=== PATIENT | female | born 1960 | race Caucasian/White ===

== ENCOUNTER 2020-09-01 13:08 | Outpatient (REF) | payer OTHER, SELFPAY ==
--- NOTE | ~2020-09-01 | XR_ITS ---
EXAMINATION: XR CHEST CLINICAL INFORMATION: Localized swelling, mass or lump. COMPARISON: None TECHNIQUE: 2 views of the chest were obtained. FINDINGS: Lungs are well-expanded and clear of acute process. The heart size and pulmonary vascularity is normal. No gross bony abnormality seen. XR/XR chest 2V IMPRESSION: Unremarkable chest exam.
== END 2020-09-01 13:09 | disposition home or self-care (01) ==
LOC: HO.HMGCX 13:08
PROVIDERS: PCP Internal Medicine; Visit Provider Hospitalist
DX: R22.2 Localized swelling, mass and lump, trunk (principal)
CPT/HCPCS: 71046

== ENCOUNTER 2020-09-22 13:02 | Outpatient (REF) | payer OTHER, SELFPAY ==
--- NOTE | ~2020-09-22 | US_ITS ---
EXAMINATION: US SOFT TISSUE NECK CLINICAL INFORMATION: Localized enlarged lymph nodes. COMPARISON: 08/17/2018 soft tissue neck ultrasound. TECHNIQUE: Ultrasound of the neck soft tissues is performed with high- frequency elise-scale imaging and color Doppler. FINDINGS: THYROID BED: Prior thyroidectomy. No residual thyroid tissue demonstrated in the thyroid bed. No cystic or solid nodules demonstrated in the thyroid bed. RIGHT NECK SOFT TISSUES: Scattered architecturally normal nodes are present. The nodes show normal fatty hilus, normal cortical thickness, and no cystic change or calcification. No abnormal color flow. The largest nodes are as follows: Level 3: 0.3 cm. Short axis Normal arturo architecture. LEFT NECK SOFT TISSUES: Scattered architecturally normal nodes are present. The nodes show normal fatty hilus, normal cortical thickness, and no cystic change or calcification. No abnormal color flow. The largest nodes are as follows: Level 5B: 0.4 cm. Short axis. Normal arturo architecture. Level 5B: 0.4 cm. Short axis, left clavicular Normal arturo architecture. US/US soft tiss head and/or neck IMPRESSION: 1. Left cervical lymph nodes are mildly enlarged relative to the right. No significantly enlarged cervical lymph nodes.
== END 2020-09-22 13:03 | disposition home or self-care (01) ==
LOC: HO.HMGCX 13:02
PROVIDERS: PCP Internal Medicine; Visit Provider Internal Medicine
DX: R59.0 Localized enlarged lymph nodes (principal)
CPT/HCPCS: 76536

== ENCOUNTER 2020-10-21 09:34 | Outpatient (REF) | payer OTHER, SELFPAY ==
[2020-10-21 11:26] LABS: Hematocrit 42.1 % (37-47); Hemoglobin 13.5 g/dl (12.0-16.0); Mean Corpuscular HGB Conc 32.1 g/dl (31.0-35.0); Mean Corpuscular Hemoglobin 28.7 pg (27.0-33.0); Mean Corpuscular Volume 89.6 fL (80-98); Mean Platelet Volume 10.5 fL (9.4-12.3); Platelet Count 141 X10*3/uL (160-400); Red Cell Distribution Width 12.2 % (11.0-16.0); White Blood Count 4.4 X10*3/uL (4.8-10.8)
[2020-10-21 11:28] LABS: Glucose Urine UA NEG (NEG); Leukocyte Esterase Urine NEG (NEG); Nitrite Urine NEG (NEG); Specific Gravity - Urine 1.025 (1.005-1.025); Urine Blood NEG (NEG); Urine Ketones NEG (NEG); Urine Protein NEG (NEG-TRACE)
[2020-10-21 11:30] LABS: Appearance Urine CLEAR; Color Urine YELLOW
[2020-10-21 11:37] LABS: Alanine Aminotransferase 15 U/L (0-31); Albumin Level 4.4 g/dL (3.5-5.0); Alkaline Phosphatase 84 U/L (39-117); Anion Gap 15 (12-20); Aspartate Amino Transferase 20 U/L (5-31); Bilirubin Total 0.6 mg/dL (0.0-1.0); Blood Urea Nitrogen 16 mg/dL (9-16); C Reactive Protein 0.05 mg/dL (< or = 0.50); Calcium 9.5 mg/dL (8.4-10.2); Carbon Dioxide 26 mmol/L (22-29); Chloride 108 mmol/L (96-108); Cholesterol 174 mg/dL; Estimated Glomerular Filt Rate > 60; Glucose Fasting 87 mg/dL (60-99); HDL Cholesterol 65 mg/dL; Iron 54 mcg/dL (30-160); LDL Cholesterol Calculated 98 mg/dl; Percent Iron Saturation 15 % (15-50); Potassium 4.6 mmol/L (3.3-5.1); Sodium 144 mmol/L (135-145); Total Iron Binding Capacity 362 mcg/dL (228-428); Total Protein 6.7 g/dL (6.5-8.0); Triglycerides 55 mg/dL; Unsaturated Iron Binding 308 ug/dL
[2020-10-21 11:48] LABS: Calcium Oxalate Crystals Urine 2+ /LPF; RBC Urine 0 /HPF (0); Squamous Epithelial Cell Urine TRACE /LPF; WBC Urine 0 /HPF (0-4)
[2020-10-21 12:02] LABS: TSH reflex Free T4 1.13 uIU/mL (0.32-4.0); Vitamin D 25-OH Total 22.8 ng/mL (>30)
[2020-10-21 12:20] LABS: Erythrocyte Sedimentation Rate 4 MM/HR (0-20)
== END 2020-10-21 09:35 | disposition home or self-care (01) ==
LOC: HO.HMGCLDS 09:34
PROVIDERS: PCP Internal Medicine; Visit Provider Internal Medicine
DX: Z00.00 Encounter for general adult medical examination without abnormal findings (principal); R59.0 Localized enlarged lymph nodes
CPT/HCPCS: 36415; 80053; 80061; 81001; 82306; 83540; 84443; 85027; 85652; 86140

== ENCOUNTER 2020-11-29 14:32 | Outpatient (REF) | payer OTHER, SELFPAY ==
--- NOTE | ~2020-11-29 | MM_ITS ---
EXAMINATION: BONE DENSITOMETRY CLINICAL INDICATION: Palpitations. COMPARISON: None (current study represents initial baseline exam). TECHNIQUE: Using a [employer] DXA System (software version: 13.1) manufactured by [employer], dual-energy x-ray absorptiometry was performed of the lumbar spine and left hip. The images are of good technical quality. Summary results are attached. FINDINGS: AP SPINE L1-L4: BMD 1.083 g/cm2, Z-score 0.4, T-score -0.8, normal. LEFT FEMUR, NECK: BMD 0.780 g/cm2, Z-score -0.6, T-score -1.9, osteopenia. LEFT FEMUR, TOTAL: BMD 0.866 g/cm2, Z-score -0.2, T-score -1.1, osteopenia. IDENTIFIED RISK FACTORS: Height loss, menopause, left oophorectomy. HISTORY OF FRACTURE: None listed. MEDICATIONS: Calcium supplements or multivitamin, vitamin D. MM/XR DEXA axial skeleton IMPRESSION: 1. DIAGNOSIS: Osteopenia based on the lowest T-score value of -1.9 in the femoral neck applying World Health Organization criteria. 2. 10-YEAR FRACTURE RISK PREDICTION, FRAX: Major osteoporotic fracture (clinical spine, forearm, hip or shoulder) 8.5%. Hip fracture 1.1%. 3. Treatment Recommendations: NOF guidelines recommend consideration for treatment in postmenopausal women and men age 50 and older presenting with the following: -A hip or vertebral (clinical or morphometric) fracture. -T-score less than or equal to -2.5 at the femoral neck or spine after appropriate evaluation to exclude secondary causes. -Low bone mass at the hip or spine and a 10-year fracture probability by FRAX of greater than or equal to 3% for hip fracture or greater than or equal to 20% for major osteoporotic fracture based on the [place] adapted WHO algorithm. 4. Other Recommendations: All treatment decisions require clinical judgment and consideration of individual patient factors, including patient preferences, comorbidities, previous drug use, risk factors not captured in the FRAX model (e.g. frailty, falls, vitamin D deficiency, increased bone turnover, interval significant decline in bone density) and possible under or overestimation of fracture risk by FRAX. Additional medical evaluation for secondary cause of low bone mineral density may be appropriate. FUTURE SCAN RECOMMENDATION: People with diagnosed cases of osteoporosis or at high risk for fracture should have regular bone mineral density tests. For patients eligible for Medicare, routine testing is allowed once every 2 years. The testing frequency can be increased to one year for patients who have rapidly progressing disease, those who are receiving or discontinuing medical therapy to restore bone mass, or have additional risk factors.
== END 2020-11-29 14:33 | disposition home or self-care (01) ==
LOC: HO.MAMMO 14:32
PROVIDERS: Visit Provider Internal Medicine
DX: Z13.820 Encounter for screening for osteoporosis (principal); R00.2 Palpitations; Z78.0 Asymptomatic menopausal state; Z90.721 Acquired absence of ovaries, unilateral
CPT/HCPCS: 77080

== ENCOUNTER → 2020-12-29 13:24 | Outpatient (REF) | payer OTHER, SELFPAY ==
--- NOTE | 2020-12-29 13:30 | ECG_ITS ---
Hook-up date: 2020-12-29 13:34:00 Duration: 47:59:00 Test Indications: PALPITATIONS Medications: [id number] QRS complexes 6 Ventricular ectopics which represent <1 % of total QRS comp. 2 Supraventricular ectopics which represent <1 % of total QRS comp. * Paced QRS complexs which represent % of total QRS comp. VENTRICULAR ECTOPY 6 Isolated 0 Bigeminal Cycles 0 Couplets 0 Runs 0 Beats in Runs * Beats LONGEST at * BPM at :: -- * Beats FASTEST at * BPM at :: -- SUPRAVENTRICULAR ECTOPY 2 Isolated 0 Couplets 0 Runs 0 Beats in Runs * Beats LONGEST at * BPM at :: -- * Beats FASTEST at * BPM at :: -- HEART RATES 41 MIN at 04:10:39 2020-12-30 66 AVG 145 MAX at 17:27:39 2020-12-30 LONGEST RR 1.6560 secs at 05:30:51 2020-12-30 S-T LEVELS Channel 1 - 128 mm at 13:34:00 2020-12-29 - 128 mm at 13:34:00 2020-12-29 Channel 2 - 128 mm at 13:34:00 2020-12-29 - 128 mm at 13:34:00 2020-12-29 Channel 3 - 128 mm at 03:25:31 -- - 128 mm at 03:25:31 Basic rhythm Normal sinus rhythm No long pauses. Frequent Sinus bradycardia , 35 % of time HR < 60 bpm No dangerous dysrhythm periods Patient reported symptoms correlated with NSR Referred By: Radha Walker Overread By: MARIANA AKERS MD
== END ==
LOC: HO.CARD 13:24
PROVIDERS: PCP Internal Medicine; Visit Provider Internal Medicine
DX: R00.2 Palpitations (principal)
CPT/HCPCS: 93226

== ENCOUNTER → 2021-01-15 09:33 | Outpatient (BNVA) | payer OTHER, SELFPAY | PROVIDERS: PCP Internal Medicine; Referring Provider Internal Medicine; Visit Provider Nurse Practitioner Family ==

== ENCOUNTER 2021-10-27 10:23 | Outpatient (REF) | payer OTHER, SELFPAY ==
[2021-10-27 11:10] LABS: MANUAL DIFF FLAG NO
[2021-10-27 11:16] LABS: Basophils Absolute Auto 0.1 X10*3/uL (0.0-0.2); Eosinophils Absolute Auto 0.2 X10*3/uL (0.0-0.4); Eosinophils Percent Auto 4.7 % (0-4); Hematocrit 42.2 % (37.0-47.0); Hemoglobin 13.9 g/dl (12.0-16.0); Imm Gran Abs Auto 0.01 X10*3/uL (0.00-0.03); Imm Gran Pct Auto 0.2 % (0.0-0.4); Lymphocytes Absolute Auto 1.4 X10*3/uL (1.2-4.9); Lymphocytes Percent Auto 27.3 % (20-40); Mean Corpuscular HGB Conc 32.9 g/dl (31.0-35.0); Mean Corpuscular Hemoglobin 28.5 pg (27.0-33.0); Mean Corpuscular Volume 86.7 fL (80.0-98.0); Mean Platelet Volume 10.1 fL (9.4-12.3); Monocytes Absolute Auto 0.3 X10*3/uL (0.1-1.2); Monocytes Percent Auto 6.7 % (2-11); Neutrophils Absolute Auto 3.1 x10*3/uL (2.0-8.3); Neutrophils Percent Auto 60.1 % (45-73); Platelet Count 166 X10*3/uL (160-400); Red Blood Count 4.87 X10*6/uL (4.20-5.50); Red Cell Distribution Width 11.9 % (11.0-16.0); White Blood Count 5.1 X10*3/uL (4.8-10.8)
[2021-10-27 11:40] LABS: Alanine Aminotransferase 17 U/L (0-31); Albumin Level 4.7 g/dL (3.5-5.0); Alkaline Phosphatase 82 U/L (39-117); Anion Gap 12 (12-20); Aspartate Amino Transferase 24 U/L (5-31); Bilirubin Total 0.9 mg/dL (0.0-1.0); Blood Urea Nitrogen 16 mg/dL (9-16); Calcium 9.7 mg/dL (8.4-10.2); Carbon Dioxide 30 mmol/L (22-29); Chloride 104 mmol/L (96-108); Cholesterol 186 mg/dL; Estimated Glomerular Filt Rate > 60; Glucose Fasting 94 mg/dL (60-99); HDL Cholesterol 65 mg/dL; LDL Cholesterol Calculated 108 mg/dl; Potassium 4.2 mmol/L (3.3-5.1); Sodium 142 mmol/L (135-145); Total Protein 6.9 g/dL (6.5-8.0); Triglycerides 67 mg/dL
[2021-10-27 11:46] LABS: TSH reflex Free T4 1.63 uIU/mL (0.32-4.0)
== END 2021-10-27 10:24 | disposition home or self-care (01) ==
LOC: HO.HMGCLDS 10:23
PROVIDERS: PCP Internal Medicine; Visit Provider Internal Medicine
DX: Z00.00 Encounter for general adult medical examination without abnormal findings (principal)
CPT/HCPCS: 36415; 80053; 80061; 84443; 85025

== ENCOUNTER 2021-11-23 | Outpatient (REF) | payer OTHER, SELFPAY | END 2021-11-23 00:01 | disposition home or self-care (01) | LOC: HO.LNP | PROVIDERS: Visit Provider Internal Medicine | DX: Z13.89 Encounter for screening for other disorder (principal) ==

== ENCOUNTER 2021-11-27 11:12 | Outpatient (REF) | payer OTHER, SELFPAY ==
[2021-11-28 14:20] LABS: BV Int Neg Control Negative (Negative); BV Int Pos Control Positive (Positive)
== END 2021-11-27 11:13 | disposition home or self-care (01) ==
LOC: HO.HMGCLDS 11:12
PROVIDERS: PCP Internal Medicine; Visit Provider Internal Medicine
DX: N76.0 Acute vaginitis (principal)
CPT/HCPCS: 87480; 87510; 87660

== ENCOUNTER 2022-10-31 13:31 | Outpatient (REF) | payer OTHER, SELFPAY ==
[2022-10-31 16:22] LABS: MANUAL DIFF FLAG NO
[2022-10-31 16:39] LABS: Appearance Urine Clear; Color Urine Yellow; Glucose Urine UA Negative (Negative); Leukocyte Esterase Urine Trace (Negative); Nitrite Urine Negative (Negative); Specific Gravity - Urine <= 1.005 (1.005-1.025); UMIC TRIGGER UA YES; Urine Blood Negative (Negative); Urine Ketones 40 mg/dL (Negative); Urine Protein Negative (Neg-Trace)
[2022-10-31 16:45] LABS: Bacteria Urine None Seen (None Seen); Hyaline Casts Urine 0-2 /LPF (0-2); RBC Urine 0-2 /HPF (0-2); Squamous Epithelial Cell Urine 0-2 /HPF (0-2); WBC Urine 0-5 /HPF (0-5)
[2022-10-31 16:51] LABS: Basophils Absolute Auto 0.1 X10*3/uL (0.0-0.2); Basophils Percent Auto 0.6 % (0-2); Eosinophils Absolute Auto 0.1 X10*3/uL (0.0-0.4); Eosinophils Percent Auto 1.5 % (0-4); Hematocrit 42.9 % (37.0-47.0); Imm Gran Abs Auto 0.01 X10*3/uL (0.00-0.03); Imm Gran Pct Auto 0.1 % (0.0-0.4); Lymphocytes Absolute Auto 1.7 X10*3/uL (1.2-4.9); Mean Corpuscular HGB Conc 32.6 g/dl (31.0-35.0); Mean Corpuscular Hemoglobin 28.4 pg (27.0-33.0); Mean Platelet Volume 11.1 fL (9.4-12.3); Monocytes Absolute Auto 0.5 X10*3/uL (0.1-1.2); Monocytes Percent Auto 5.7 % (2-11); Neutrophils Absolute Auto 6.4 x10*3/uL (2.0-8.3); Neutrophils Percent Auto 73.1 % (45-73); Platelet Count 159 X10*3/uL (160-400); Red Blood Count 4.93 X10*6/uL (4.20-5.50); Red Cell Distribution Width 12.1 % (11.0-16.0); White Blood Count 8.7 X10*3/uL (4.8-10.8)
[2022-10-31 17:02] LABS: Alanine Aminotransferase 13 U/L (0-31); Albumin Level 4.6 g/dL (3.5-5.0); Alkaline Phosphatase 78 U/L (39-117); Anion Gap 13 (12-20); Aspartate Amino Transferase 18 U/L (5-31); Bilirubin Total 1.5 mg/dL (0.0-1.0); Blood Urea Nitrogen 18 mg/dL (9-16); Calcium 9.8 mg/dL (8.4-10.2); Carbon Dioxide 28 mmol/L (22-29); Chloride 104 mmol/L (96-108); Cholesterol 178 mg/dL; Estimated Glomerular Filt Rate > 60; Glucose Fasting 86 mg/dL (60-99); HDL Cholesterol 66 mg/dL; LDL Cholesterol Calculated 100 mg/dl; Potassium 4.4 mmol/L (3.3-5.1); Sodium 141 mmol/L (135-145); Total Protein 7.2 g/dL (6.5-8.0); Triglycerides 60 mg/dL
[2022-10-31 17:16] LABS: TSH reflex Free T4 1.24 uIU/mL (0.32-4.0)
== END 2022-10-31 13:32 | disposition home or self-care (01) ==
LOC: HO.HMGCLDS 13:31
PROVIDERS: PCP Internal Medicine; Visit Provider Internal Medicine
DX: Z00.00 Encounter for general adult medical examination without abnormal findings (principal); R00.2 Palpitations
CPT/HCPCS: 36415; 80053; 80061; 81001; 84443; 85025

== ENCOUNTER 2022-11-06 07:55 | Outpatient (AMB) | payer OTHER, SELFPAY ==
[2022-11-06 07:58] VITALS: BP 126/82; PULSE 60; O2SAT 97; BMI 20.8
--- NOTE | 2022-11-06 07:58 | MHC.PC.OV ---
Vital Signs 11/06/22 07:58 Height 5 ft 10 in Weight 145 lb 4 oz BMI 20.8 BP 126/82 Blood Pressure Location Lt brachial Position Sitting Pulse 60 Pulse Source Pulse Oximeter Pulse Oximetry (%) 97 Oxygen Delivery Method Room Air Intake Visit Reasons: annual PE Intake Note: pt is here for PE Allergies No Known Allergies [No Known Allergies*] Allergy (Verified 11/06/22 08:01) Medication List - Last Reconciled 11/06/22 by Radha Walker MD famciclovir 250 mg PO BID multivitamin (Daily Multi-Vitamin tablet) 1 tab PO DAILY Tobacco use date assessed: 11/06/22 Dental Screening Dental Screen Date: 11/06/22 Did you have a dental visit in the last 12 months?: Yes Did you have a dental problem in the last 6 months where you did not have access to dental care?: No Was dental information given to patient?: Patient has dentist HPI annual PE HPI Details Patient presents for physical PFSH Medical History (Updated 11/06/22 @ 09:04 by Radha Walker MD) Annual physical exam Cervical adenopathy Hair loss IBS (irritable bowel syndrome) Pain Palpitations Valencia syndrome Uterine fibroid Surgical History H/O colonoscopy Family History Brother Colon polyp Social History Housing: House Alcohol intake: current Alcohol intake frequency: holidays/special occasions only Patient Tobacco Use Status: Never used Tobacco e-Cigarette/Vaping Use: Never Used service: No Current occupational status: employed Cognitive needs: No Hearing needs: No Vision needs: Yes Questionnaire Thrive Questionnaire Date Thrive assessed: 11/01/20 Review of Systems Const All systems reviewed & are unremarkable except as noted in HPI and below Reports no additional complaints Eyes Reports no additional complaints ENT Reports no additional complaints Card Reports no additional complaints Resp Reports no additional complaints GI Reports no additional complaints Reports no additional complaints Physical exam (Primary Care) Vital Signs: Last Vital Signs Pulse 60 11/06/22 07:58 BP 126/82 11/06/22 07:58 Pulse Ox 97 11/06/22 07:58 Oxygen Delivery Method Room Air 11/06/22 07:58 BMI result Body Mass Index 20.8 Tobacco/Smoking Status: Tobacco use Status Tobacco use date assessed 11/06/22 11/06/22 08:04 Patient Tobacco Use Status Never used Tobacco 11/06/22 08:04 e-Cigarette/Vaping Use Never Used 11/06/22 08:04 Thrive Assessment: Date of Thrive Assessment Date Thrive assessed 11/01/20 11/06/22 08:04 Const General: no acute distress HENMT Head: Yes normal to inspection Ears: hearing grossly normal bilaterally Face and sinus: Yes normal facial exam Throat: Yes posterior oropharynx normal Eyes General: appearance normal, both eyes and all related structures Neck Neck: Yes no lymphadenopathy and Yes supple Resp Effort & Inspection: normal respiratory effort Auscultation: clear to auscultation bilaterally Cardio Rhythm: regular rhythm Heart sounds: S1 normal heart sound present and S2 normal heart sound present GI Inspection: Yes normal to inspection Palpation (GI): Soft to palpation Percussion: Yes normal to percussion Auscultation: normal bowel sounds Assessment and Plan Assessment & Plan (1) Osteochondroma: Comment: L TMJ will f/u with oral surgeon 11/10 Code(s): D16.9 - Benign neoplasm of bone and articular cartilage, unspecified (2) Dysplastic nevi: Comment: Referred to dermatology 11/10 Code(s): D23.9 - Other benign neoplasm of skin, unspecified (3) Sleep apnea: Code(s): G47.30 - Sleep apnea, unspecified Plan: Schedule home sleep study to r/o sleep apnea (4) Annual physical exam: Code(s): Z00.00 - Encounter for general adult medical examination without abnormal findings Plan: Well-balanced diet and regular exercise discussed with the patient. Mammogram will be scheduled patient will referred to GI for colonoscopy. She (5) Normal pelvic exam: Comment: Negative Pap and pelvic exam 2019, never sexually active Code(s): Z01.419 - Encounter for gynecological examination (general) (routine) without abnormal findings Orders: Orders RT home sleep study Today G47.30 - Sleep apnea, unspecified MM screening mammo BI Today Z12.31 - Encounter for screening mammogram for malignant neoplasm of breast Comprehensive [place]. Panel Fast 365 Days E55.9 - Vitamin D deficiency, unspecified, Z00.00 - Encounter for general adult medical examination without abnormal findings Lipid Panel 365 Days E55.9 - Vitamin D deficiency, unspecified, Z00.00 - Encounter for general adult medical examination without abnormal findings TSH reflex Free T4 365 Days E55.9 - Vitamin D deficiency, unspecified, Z00.00 - Encounter for general adult medical examination without abnormal findings Vitamin D 25-OH Total 365 Days E55.9 - Vitamin D deficiency, unspecified, Z00.00 - Encounter for general adult medical examination without abnormal findings Complete Blood Count Auto Diff 365 Days E55.9 - Vitamin D deficiency, unspecified, Z00.00 - Encounter for general adult medical examination without abnormal findings Vitamin B12 and Folate 365 Days E55.9 - Vitamin D deficiency, unspecified, Z00.00 - Encounter for general adult medical examination without abnormal findings UA CC w/rflx Micro + Cult 365 Days E55.9 - Vitamin D deficiency, unspecified, Z00.00 - Encounter for general adult medical examination without abnormal findings Referrals Dermatology Referral D23.9 - Other benign neoplasm of skin, unspecified Gastroenterology Referral Z00.00 - Encounter for general adult medical examination without abnormal findings Medications: Refilled famciclovir 250 mg PO BID 180 tabs 3RF Coding Level of Care Code Est Pt Prev Care 40-64y(31792) Diagnoses Osteochondroma D16.9 Dysplastic nevi D23.9 Sleep apnea G47.30 Annual physical exam Z00.00 Normal pelvic exam Z01.419
== END 2022-11-06 08:54 | disposition home or self-care (01) ==
PROVIDERS: Visit Provider Internal Medicine
DX: Z00.00 Encounter for general adult medical examination without abnormal findings (principal); D16.9 Benign neoplasm of bone and articular cartilage, unspecified; D23.9 Other benign neoplasm of skin, unspecified; G47.30 Sleep apnea, unspecified; Z01.419 Encounter for gynecological examination (general) (routine) without abnormal findings
CPT/HCPCS: 99396

== ENCOUNTER → 2022-12-12 08:57 | Outpatient (REF) | payer OTHER, SELFPAY ==
--- NOTE | ~2022-12-12 | MM_ITS ---
EXAMINATION: MM SCREENING DIGITAL BREAST TOMOSYNTHESIS, BILATERAL CLINICAL INFORMATION: Screening. Asymptomatic. The patient has a history of prior left breast excision for benign disease. COMPARISON: Mammography: This study is compared with prior exams dating back to 2017. TECHNIQUE: Digital breast tomosynthesis is performed in both the craniocaudal and mediolateral oblique views along with computer-aided detection (CAD). Synthesized 2D images are generated from the tomosynthesis. FINDINGS: There are scattered areas of fibroglandular density (ACR BI-RADS breast composition Category b). There are no significant masses, abnormal calcifications, or other abnormalities. There are unchanged, benign calcifications in the superior aspect of the left breast. MM/MM tomosynthesis screening BI IMPRESSION: No mammographic evidence of malignancy. ASSESSMENT: BI-RADS BI-RADS 2 - Benign Findings RECOMMENDATION: Routine annual mammography screening. 1 year F/U This examination should not preclude the clinical evaluation of a suspicious palpable abnormality. This patient's information was entered into a reminder system with a target due date for their next mammogram.
== END ==
LOC: HO.SL 08:57
PROVIDERS: PCP Internal Medicine; Visit Provider Internal Medicine
DX: Z12.31 Encounter for screening mammogram for malignant neoplasm of breast (principal)
CPT/HCPCS: 77063; 77067; 95806

== ENCOUNTER → 2022-12-12 09:00 | Outpatient (BNV) | payer OTHER, SELFPAY | PROVIDERS: PCP Internal Medicine; Visit Provider Radiology Diagnostic Radiology | DX: Z12.31 Encounter for screening mammogram for malignant neoplasm of breast (principal) | CPT/HCPCS: 77063; 77067 ==

== ENCOUNTER → 2022-12-12 09:47 | Outpatient (BNV) | payer OTHER, SELFPAY | PROVIDERS: PCP Internal Medicine; Visit Provider Internal Medicine | DX: R06.83 Snoring (principal) | CPT/HCPCS: 95806 ==

== ENCOUNTER 2023-10-07 11:39 | Outpatient (AMB) | payer OTHER, SELFPAY ==
[2023-10-07 11:42] VITALS: BP 130/82; PULSE 66; O2SAT 98; BMI 20.5
--- NOTE | 2023-10-07 11:42 | AM.OFFWIN_ITS ---
Intake Vital Signs 10/07/23 11:42 Height 5 ft 10 in Weight 143 lb BMI 20.5 BP 130/82 Blood Pressure Location Lt brachial Position Sitting Pulse 66 Pulse Source Pulse Oximeter Pulse Oximetry (%) 98 Oxygen Delivery Method Room Air Intake Visit Reasons: EP-Blood in Urine Patient Tobacco Use Status: Never used Tobacco Allergies No Known Allergies [No Known Allergies*] Allergy (Verified 10/07/23 11:42) Medication List - Last Reconciled 10/07/23 by Donnie Larson MD famciclovir 250 mg PO BID multivitamin (Daily Multi-Vitamin tablet) 1 tab PO DAILY Do you need a note to return to daycare/school/sports/work: No HPI EP-Blood in Urine HPI Details Patient is a 63-year-old female came in today to be evaluated for blood in urine. Patient says that it started around weekend it has been almost 3 to 4 weeks There is no frequency of urination or dysuria Patient says that when it started she also have discomfort upper part of her abdomen and right flank Discomfort is no longer there. She is also having frequent bowel movements but no blood. She has appointment coming up for colonoscopy screening early October in 2-3 weeks She does have a family history of renal calculi in father I am ordering basic labs to monitor her kidney functions and hemoglobin She does have 3+ blood in her urine today There is no flank pain on examination or abdominal pain. Review system revealed no fever no chills no nausea no vomiting no headaches no dizziness no chest pain no shortness a breath Further management after the reports [facility] Medical History Pain Palpitations Annual physical exam Cervical adenopathy Uterine fibroid IBS (irritable bowel syndrome) Valencia syndrome Hair loss Surgical History H/O colonoscopy Family History Brother Colon polyp Social History Housing: House Alcohol intake: current Alcohol intake frequency: holidays/special occasions only Patient Tobacco Use Status: Never used Tobacco e-Cigarette/Vaping Use: Never Used service: No Current occupational status: employed Cognitive needs: No Hearing needs: No Vision needs: Yes Review of Systems Const Denies chills and Denies fever(s) ENT Denies epistaxis and Denies nasal discharge Card Denies chest pain Resp Denies chest congestion, Denies cough and Denies hemoptysis GI Denies nausea Skin/Breast Denies rash Neuro Reports no additional complaints Psych Reports no additional complaints Endo Reports no additional complaints Physical Exam Vital Signs: Last Vital Signs Pulse 66 10/07/23 11:42 BP 130/82 10/07/23 11:42 Pulse Ox 98 10/07/23 11:42 Oxygen Delivery Method Room Air 10/07/23 11:42 BMI result Body Mass Index 20.5 Const General: cooperative, comfortable and no acute distress Orientation/consciousness: patient oriented x3 HEENT Head: Yes normocephalic Eyes General: appearance normal, both eyes and all related structures Neck Other: Supple Neck: Yes supple Resp Effort & Inspection: normal respiratory effort, no cough and no stridor Cardio Rhythm: regular rhythm Heart sounds: S1 normal heart sound present and S2 normal heart sound present GI Other: Abdominal exam is benign General: Yes no CVA tenderness Back/Spine/Pelvis Back: no CVA tenderness Skin General skin exam: turgor normal Neuro Other: Motor sensory intact General: patient oriented x3, tone normal and moves all extremities Extrem Other: No lower extremity swelling. Right lower extremity: no edema Left lower extremity: no edema Psych Other: Normal effect, speech clear Results AMB Urinalysis, Automated UA Leukoctes 0 Catherine/uL Last Edit by Westley Serrano CMA on 10/07/23 11:59 UA Nitrite Negative Last Edit by Westley Serrano CMA on 10/07/23 11:59 UA Urobilinogen 0.2 mg/dL Last Edit by Westley Serrano CMA on 10/07/23 11 :59 UA Protein 0 mg/dL Last Edit by Westley Serrano CMA on 10/07/23 11:59 UA pH 6.0 Last Edit by Westley Serrano CMA on 10/07/23 11:59 UA Blood 200 Alejandro/uL Last Edit by Westley Serrano CMA on 10/07/23 11:59 UA Specific Pinch 1.010 Last Edit by Westley Serrano CMA on 10/07/23 11:59 UA Ketone Positive Last Edit by Westley Serrano CMA on 10/07/23 11:59 UA Bilirubin 0 mg/dL Last Edit by Westley Serrano CMA on 10/07/23 11:59 UA Glucose 0 mg/dL Last Edit by Westley Serrano CMA on 10/07/23 11:59 Assessment & Plan Assessment & Plan (1) Hematuria: Code(s): R31.9 - Hematuria, unspecified Qualifiers: Hematuria type: gross Qualified Code(s): R31.0 - Gross hematuria Plan Patient is a 63-year-old female came in today to be evaluated for blood in urine. Patient says that it started around weekend it has been almost 3 to 4 weeks There is no frequency of urination or dysuria Patient says that when it started she also have discomfort upper part of her abdomen and right flank Discomfort is no longer there. She is also having frequent bowel movements but no blood. She has appointment coming up for colonoscopy screening early October in 2-3 weeks She does have a family history of renal calculi in father I am ordering basic labs to monitor her kidney functions and hemoglobin She does have 3+ blood in her urine today There is no flank pain on examination or abdominal pain. Review system revealed no fever no chills no nausea no vomiting no headaches no dizziness no chest pain no shortness a breath Further management after the reports Orders: Orders AMB Urinalysis Automated Today Z13.9 - Encounter for screening, unspecified Urine Culture Today R31.9 - Hematuria, unspecified US renal BI Today R31.0 - Gross hematuria Complete Blood Count Auto Diff Today R31.9 - Hematuria, unspecified Comprehensive Met. Panel Today R31.9 - Hematuria, unspecified Coding Level of Care Code Est Pt Level 4 (76358) Diagnoses Gross hematuria R31.0 Hematuria type: gross
== END 2023-10-07 12:10 | disposition home or self-care (01) ==
PROVIDERS: PCP Internal Medicine; Visit Provider Internal Medicine
DX: R31.0 Gross hematuria (principal)
CPT/HCPCS: 81003; 99214

== ENCOUNTER 2023-10-07 11:58 | Outpatient (REF) | payer OTHER, SELFPAY ==
[2023-10-07 13:05] LABS: MANUAL DIFF FLAG NO
[2023-10-07 13:29] LABS: Basophils Percent Auto 0.7 % (0-2); Eosinophils Absolute Auto 0.3 X10*3/uL (0.0-0.4); Eosinophils Percent Auto 4.7 % (0-4); Hematocrit 40.8 % (37.0-47.0); Hemoglobin 13.5 g/dl (12.0-16.0); Imm Gran Abs Auto 0.02 X10*3/uL (0.00-0.03); Imm Gran Pct Auto 0.4 % (0.0-0.4); Lymphocytes Absolute Auto 1.4 X10*3/uL (1.2-4.9); Lymphocytes Percent Auto 25.3 % (20-40); Mean Corpuscular HGB Conc 33.1 g/dl (31.0-35.0); Mean Corpuscular Volume 87.6 fL (80.0-98.0); Mean Platelet Volume 10.5 fL (9.4-12.3); Monocytes Absolute Auto 0.4 X10*3/uL (0.1-1.2); Monocytes Percent Auto 7.5 % (2-11); Neutrophils Absolute Auto 3.5 x10*3/uL (2.0-8.3); Neutrophils Percent Auto 61.4 % (45-73); Platelet Count 146 X10*3/uL (160-400); Red Blood Count 4.66 X10*6/uL (4.20-5.50); Red Cell Distribution Width 12.1 % (11.0-16.0); White Blood Count 5.7 X10*3/uL (4.8-10.8)
[2023-10-07 13:48] LABS: Alanine Aminotransferase 13 U/L (0-31); Albumin Level 4.4 g/dL (3.5-5.0); Alkaline Phosphatase 76 U/L (39-117); Anion Gap 12 (12-20); Aspartate Amino Transferase 21 U/L (5-31); Bilirubin Total 1.1 mg/dL (0.0-1.0); Blood Urea Nitrogen 16 mg/dL (9-16); Calcium 9.3 mg/dL (8.4-10.2); Carbon Dioxide 28 mmol/L (22-29); Chloride 106 mmol/L (96-108); Estimated Glomerular Filt Rate > 60; Glucose Random 90 mg/dL (60-115); Potassium 4.2 mmol/L (3.3-5.1); Sodium 142 mmol/L (135-145); Total Protein 6.9 g/dL (6.5-8.0)
== END 2023-10-07 11:59 | disposition home or self-care (01) ==
LOC: HO.HMGCLDS 11:58
PROVIDERS: PCP Internal Medicine; Visit Provider Internal Medicine
DX: R31.9 Hematuria, unspecified (principal)
CPT/HCPCS: 36415; 80053; 85025

== ENCOUNTER 2023-10-08 14:39 | Outpatient (REF) | payer OTHER, SELFPAY ==
--- NOTE | ~2023-10-08 | US_ITS ---
EXAMINATION: US RETROPERITONEAL LIMITED (RENAL ONLY) CLINICAL INFORMATION: Gross hematuria. COMPARISON: None available. TECHNIQUE: Real-time imaging of the kidneys. FINDINGS: RIGHT KIDNEY: 9.3 x 3.5 x 5.3 cm (SAG x AP x TRV). The kidney is normal in size, contour, and echogenicity. Renal cortical thickness is normal. No calculi or focal parenchymal lesions. No hydronephrosis. LEFT KIDNEY: 10.3 x 5.3 x 5.6 cm (SAG x AP x TRV). The kidney is normal in size, contour, and echogenicity. Renal cortical thickness is normal. Multiple renal calculi with largest cluster measuring in conjunction 1.6 cm in the upper pole. There is a 2.3 cm calculus in the ureteropelvic junction, possibly explaining the hydronephrosis. Bilateral ureteric jets are present. US/US renal BI IMPRESSION: Moderate left-sided hydronephrosis with an obstructive 2.3 cm calculus in the ureteropelvic junction and multiple additional nonobstructive calculi including largest cluster measuring 1.6 cm in the upper pole.
== END 2023-10-08 14:40 | disposition home or self-care (01) ==
LOC: HO.HMGCX 14:39
PROVIDERS: PCP Internal Medicine; Visit Provider Internal Medicine
DX: R31.0 Gross hematuria (principal)
CPT/HCPCS: 76775

== ENCOUNTER 2023-11-04 10:40 | Outpatient (REF) | payer OTHER, SELFPAY ==
[2023-11-04 12:59] LABS: MANUAL DIFF FLAG NO
[2023-11-04 13:06] LABS: Basophils Absolute Auto 0.1 X10*3/uL (0.0-0.2); Basophils Percent Auto 1.1 % (0-2); Eosinophils Absolute Auto 0.2 X10*3/uL (0.0-0.4); Eosinophils Percent Auto 5.2 % (0-4); Hematocrit 40.8 % (37.0-47.0); Hemoglobin 13.5 g/dl (12.0-16.0); Lymphocytes Absolute Auto 1.6 X10*3/uL (1.2-4.9); Lymphocytes Percent Auto 36.2 % (20-40); Mean Corpuscular HGB Conc 33.1 g/dl (31.0-35.0); Mean Corpuscular Hemoglobin 28.8 pg (27.0-33.0); Mean Platelet Volume 10.8 fL (9.4-12.3); Monocytes Absolute Auto 0.4 X10*3/uL (0.1-1.2); Monocytes Percent Auto 7.9 % (2-11); Neutrophils Absolute Auto 2.2 x10*3/uL (2.0-8.3); Neutrophils Percent Auto 49.6 % (45-73); Platelet Count 151 X10*3/uL (160-400); Red Blood Count 4.69 X10*6/uL (4.20-5.50); Red Cell Distribution Width 12.4 % (11.0-16.0); White Blood Count 4.4 X10*3/uL (4.8-10.8)
[2023-11-04 13:15] LABS: Appearance Urine Clear; Color Urine Yellow; Glucose Urine UA Negative (Negative); Leukocyte Esterase Urine Small (1+) (Negative); Nitrite Urine Negative (Negative); PH 5.5 (5.0-9.0); UMIC TRIGGER UACC YES; Urine Blood Trace (Negative); Urine Ketones Negative (Negative); Urine Protein Negative (Neg-Trace)
[2023-11-04 13:29] LABS: Alanine Aminotransferase 11 U/L (0-31); Albumin Level 4.5 g/dL (3.5-5.0); Alkaline Phosphatase 76 U/L (39-117); Anion Gap 14 (12-20); Aspartate Amino Transferase 19 U/L (5-31); Blood Urea Nitrogen 16 mg/dL (9-16); Calcium 9.5 mg/dL (8.4-10.2); Carbon Dioxide 26 mmol/L (22-29); Chloride 105 mmol/L (96-108); Cholesterol 187 mg/dL (<200); Estimated Glomerular Filt Rate > 60; Glucose Fasting 86 mg/dL (60-99); HDL Cholesterol 62 mg/dL (>40); LDL Cholesterol Calculated 116 mg/dL (<100); Potassium 4.1 mmol/L (3.3-5.1); Sodium 141 mmol/L (135-145); Total Protein 6.9 g/dL (6.5-8.0); Triglycerides 48 mg/dL (<150)
[2023-11-04 13:31] LABS: Bacteria Urine None Seen (None Seen); Calcium Oxalate Crystals Urine Present; Hyaline Casts Urine 0-2 /LPF (0-2); Squamous Epithelial Cell Urine 0-2 /HPF (0-2); UACC Culture Trigger YES
[2023-11-04 13:47] LABS: Vitamin D 25-OH Total 34.3 ng/mL (>30)
[2023-11-04 13:54] LABS: Folate 11.4 ng/mL (> or = 4.0); Vitamin B12 511 pg/mL (200-900)
== END 2023-11-04 10:41 | disposition home or self-care (01) ==
LOC: HO.HMGCLDS 10:40
PROVIDERS: PCP Internal Medicine; Visit Provider Internal Medicine
DX: Z00.00 Encounter for general adult medical examination without abnormal findings (principal); E55.9 Vitamin D deficiency, unspecified; R82.90 Unspecified abnormal findings in urine
CPT/HCPCS: 36415; 80053; 80061; 81001; 82306; 82607; 82746; 84443; 85025; 87086

== ENCOUNTER 2023-11-11 08:27 | Outpatient (AMB) | payer OTHER, SELFPAY ==
[2023-11-11 08:31] VITALS: BP 138/70; PULSE 52; O2SAT 100; BMI 20.1
--- NOTE | 2023-11-11 08:31 | MHC.PC.OV ---
Vital Signs 11/11/23 08:31 Height 5 ft 10 in Weight 140 lb BMI 20.1 BP 138/70 Blood Pressure Location Lt brachial Position Sitting Pulse 52 Pulse Source Pulse Oximeter Pulse Oximetry (%) 100 Oxygen Delivery Method Room Air Intake Visit Reasons: PE Intake Note: Pt is here today for her PE: Last mammogram 12/12/22 Allergies No Known Allergies [No Known Allergies*] Allergy (Verified 11/11/23 08:32) Medication List - Last Reconciled 11/11/23 by Radha Walker MD famciclovir 250 mg PO BID multivitamin (Daily Multi-Vitamin tablet) 1 tab PO DAILY Tobacco use date assessed: 11/11/23 Dental Screening Dental Screen Date: 11/11/23 Did you have a dental visit in the last 12 months?: Yes Did you have a dental problem in the last 6 months where you did not have access to dental care?: No Was dental information given to patient?: Patient has dentist HPI PE HPI Details Patient presents for physical. A month ago patient developed episode of painless gross hematuria, was seen urgent care. renal ultrasound was consistent with 2.3 cm obstructive left kidney stone with moderate hydronephrosis and multiple nonobstructive nephrolithiasis. Patient denies flank pain nausea vomiting fever chills or abdominal pain. She has an appointment with urology next week. [facility] Medical History Pain Palpitations Annual physical exam Cervical adenopathy Uterine fibroid IBS (irritable bowel syndrome) Valencia syndrome Hair loss Surgical History H/O colonoscopy Family History Brother Colon polyp Social History Housing: House Alcohol intake: current Alcohol intake frequency: holidays/special occasions only Patient Tobacco Use Status: Never used Tobacco e-Cigarette/Vaping Use: Never Used service: No Current occupational status: employed Cognitive needs: No Hearing needs: No Vision needs: Yes Questionnaire PHQ-9 Over the last 2 weeks, how often have you been bothered by any of the following problems? 27089 - PHQ-9 Billing: Patient declined-do not bill Source: Developed by Drs. Dano Cat, Deyanira Traore, Malik Osborn and colleagues, with an educational desmond from [employer]. Thrive Questionnaire Date Thrive assessed: 11/11/23 I am a: Patient What is your living situation today?: I choose not to answer this question Within the past 12 months, did the food you bought not last and you didn't have the money to get more?: I choose not to answer this question Within the past 12 months, did you worry whether your food would run out before you got money to buy more?: I choose not to answer this question Do you have trouble paying for medicines?: I choose not to answer this question Do you have trouble getting transportation to medical appointments?: I choose not to answer this question Do you have trouble paying your heating and electricity bill?: I choose not to answer this question Do you have trouble taking care of your child, family member or friend?: I choose not to answer this question Do you have trouble with day-to-day activities such as bathing, preparing meals, shopping, managing finances, etc.?: I choose not to answer this question Are you currently unemployed and looking for a job?: I choose not to answer this question Are you interested in more education?: I choose not to answer this question Currently or been in a relationship where the following occur: I choose not to answer THRIVE Score: 0 AUDIT C Alcohol Use Questionnaire (AUDIT-C) 1. How often do you have a drink containing alcohol?: Never Total Score: 0 JOSE-7 AMB Questionnaire JOSE-7 Date JOSE - 7 assessed: 11/11/23 Source: Developed by Drs. Dano Cat, Deyanira Traore, Malik Osborn and colleagues, with an educational desmond from [employer]. JOSE-7 Assessment Billing JOSE-7 Assessment Tool: pt declined-do not bill Review of Systems Const All systems reviewed & are unremarkable except as noted in HPI and below Eyes Reports no additional complaints ENT Reports no additional complaints Card Reports no additional complaints Resp Reports no additional complaints GI Reports no additional complaints Reports no additional complaints Physical exam (Primary Care) Vital Signs: Last Vital Signs Pulse 52 11/11/23 08:31 BP 138/70 11/11/23 08:31 Pulse Ox 100 11/11/23 08:31 Oxygen Delivery Method Room Air 11/11/23 08:31 BMI result Body Mass Index 20.1 Tobacco/Smoking Status: Tobacco use Status Tobacco use date assessed 11/11/23 11/11/23 08:37 Patient Tobacco Use Status Never used Tobacco 11/11/23 08:34 e-Cigarette/Vaping Use Never Used 11/11/23 08:34 Thrive Assessment: Date of Thrive Assessment Date Thrive assessed 11/11/23 11/11/23 08:34 Currently or been in a relationship where the following occur: I choose not to answer Const General: no acute distress HENMT Head: Yes normal to inspection Ears: hearing grossly normal bilaterally General nose exam: Normal external nose present Eyes General: appearance normal, both eyes and all related structures Neck Neck: Yes no lymphadenopathy and Yes supple Resp Effort & Inspection: normal respiratory effort Auscultation: clear to auscultation bilaterally Cardio Rhythm: regular rhythm Heart sounds: S1 normal heart sound present and S2 normal heart sound present GI Inspection: Yes normal to inspection Palpation (GI): Soft to palpation Percussion: Yes normal to percussion Auscultation: normal bowel sounds General: Yes Bimanual renal exam normal bilaterally Assessment and Plan Assessment & Plan (1) Hydronephrosis: Code(s): N13.30 - Unspecified hydronephrosis Plan: Obtain stat ultrasound to evaluate for hydronephrosis. Patient has an appointment scheduled with urology next week (2) Hematuria: Code(s): R31.9 - Hematuria, unspecified Qualifiers: Hematuria type: gross Qualified Code(s): R31.0 - Gross hematuria (3) Annual physical exam: Code(s): Z00.00 - Encounter for general adult medical examination without abnormal findings Plan: Well-balanced diet regular physical activity discussed with the patient she is up-to-date with the mammogram DEXA will be rechecked and patient has an appointment to discuss colonoscopy in November (4) Cough: Comment: chronic Code(s): R05.9 - Cough, unspecified Plan: check CXR Orders: Orders XR DEXA axial skeleton Today Z00.00 - Encounter for general adult medical examination without abnormal findings Complete Blood Count Auto Diff 1 Year Z00.00 - Encounter for general adult medical examination without abnormal findings Lipid Panel 1 Year Z00.00 - Encounter for general adult medical examination without abnormal findings TSH reflex Free T4 1 Year Z00.00 - Encounter for general adult medical examination without abnormal findings UA w Microscopic 1 Year Z00.00 - Encounter for general adult medical examination without abnormal findings US renal BI Today N13.30 - Unspecified hydronephrosis, R31.0 - Gross hematuria XR chest 1V Today R05.9 - Cough, unspecified Comprehensive Ballinger. Panel Fast 1 Year Z00.00 - Encounter for general adult medical examination without abnormal findings Vitamin D 25-OH Total 1 Year Z00.00 - Encounter for general adult medical examination without abnormal findings Coding Level of Care Code Est Pt Prev Care 40-64y(20076) Diagnoses Hydronephrosis N13.30 Gross hematuria R31.0 Hematuria type: gross Annual physical exam Z00.00 Cough R05.9
== END 2023-11-11 09:35 | disposition home or self-care (01) ==
PROVIDERS: PCP Internal Medicine; Visit Provider Internal Medicine
DX: N13.30 Unspecified hydronephrosis (principal); R31.0 Gross hematuria; Z00.00 Encounter for general adult medical examination without abnormal findings; R05.9 Cough, unspecified
CPT/HCPCS: 99396

== ENCOUNTER 2023-11-11 09:51 | Outpatient (REF) | payer OTHER, SELFPAY ==
--- NOTE | ~2023-11-11 | XR_ITS ---
EXAMINATION: XR CHEST CLINICAL INFORMATION: Cough unspecified COMPARISON: 11/01/2019 TECHNIQUE: 2 views of the chest were obtained. FINDINGS: Lungs hyperaerated but grossly clear. No pleural effusion. Heart and pulmonary vessels normal. XR/XR chest 2V IMPRESSION: Unremarkable examination.
--- NOTE | ~2023-11-11 | US_ITS ---
EXAMINATION: US RETROPERITONEAL LIMITED (RENAL ONLY) CLINICAL INFORMATION: Hydronephrosis. COMPARISON: Ultrasound renal from 10/08/2023 TECHNIQUE: Scale and color images of the bilateral kidneys and bladder FINDINGS: RIGHT KIDNEY: 8.8 x 3.8 x 5.8 cm (SAG x AP x TRV). The kidney is normal in size, contour, and echogenicity. Renal cortical thickness is normal. No calculi or focal parenchymal lesions. No hydronephrosis. LEFT KIDNEY: 10.3 x 3.9 x 5.7 cm (SAG x AP x TRV). The kidney is normal in size, contour, and echogenicity. Renal cortical thickness is normal. No focal parenchymal lesions. Mild to moderate left-sided hydronephrosis with a calculus along the left ureter measuring 1.1 cm. Additional calculi are noted in the left kidney the largest measuring up to 7 mm. URINARY BLADDER: Bilateral ureteral jets are identified. US/US renal BI IMPRESSION: 1. Mild to moderate left-sided hydronephrosis with a calculus along the left ureter measuring 1.1 cm. 2. Additional calculi are noted in the left kidney the largest measuring up to 7 mm. 3. No right-sided nephrolithiasis or hydronephrosis. 4. Bilateral ureteral jets are identified.
== END 2023-11-11 09:52 | disposition home or self-care (01) ==
LOC: HO.HMGCX 09:51
PROVIDERS: PCP Internal Medicine; Visit Provider Internal Medicine
DX: N13.30 Unspecified hydronephrosis (principal); R31.0 Gross hematuria
CPT/HCPCS: 71046; 76775

== ENCOUNTER 2023-11-17 08:03 | Outpatient (AMB) | payer OTHER, SELFPAY ==
--- NOTE | 2023-11-17 08:26 | A.OFFVIS_ITS ---
Intake Visit Reasons: ER Follow up- Kidney stones/Hydronephrosis Intake Note: New Patient is Present for Urgent care Follow up for Kidney stones/Hematuria Urology Medication:Tamsulosin Antibiotic Allergies:Tetracycline Blood Thinners: None Patient states she is not in pain, States that her urination has been dark to color. [employer] Required: No Allergies tetracycline Allergy (Mild, Verified 11/17/23 08:30) Unknown Medication List - Last Reconciled 11/17/23 by Tiago Monae MD famciclovir 250 mg PO BID multivitamin (Daily Multi-Vitamin tablet) 1 tab PO DAILY oxycodone-acetaminophen 5-325 mg (Percocet) 1 tab PO Q6-8H PRN tamsulosin 0.4 mg PO BEDTIME HPI Comments Details: Shanna is a 63-year-old female who is here for evaluation for kidney stones. The patient denies pain at this time. States that she noted brownish colored urine and then blood in the urine. She was seen by her PCP and was sent for ultrasound evaluation. Reviewed renal ultrasound x2 left hydronephrosis. Left ureteral stone. Left renal calculi. Bilateral ureteral jets. Discussed conservative management versus ureteroscopy laser and stent placement. The patient wants to continue to monitor at this time as she has not had severe pain. Will obtain CT stone protocol. Patient will continue tamsulosin. Percocet 6. Prescribed. [facility] Medical History Pain Palpitations Annual physical exam Cervical adenopathy Uterine fibroid IBS (irritable bowel syndrome) Valencia syndrome Hair loss Surgical History H/O colonoscopy Family History Brother Colon polyp Social History Housing: House Alcohol intake: current Alcohol intake frequency: holidays/special occasions only Patient Tobacco Use Status: Never used Tobacco e-Cigarette/Vaping Use: Never Used service: No Current occupational status: employed Cognitive needs: No Hearing needs: No Vision needs: Yes Review of Systems Const All systems reviewed & are unremarkable except as noted in HPI and below Reports no additional complaints Eyes Reports no additional complaints ENT Reports no additional complaints Card Reports no additional complaints Resp Reports no additional complaints GI Reports no additional complaints Reports as per HPI Musc Reports no additional complaints Skin/Breast Reports system reviewed and no additional complaints, except as documented Neuro Reports no additional complaints Psych Reports no additional complaints Endo Reports no additional complaints Corey/Lymph Reports no additional complaints Aller/Immun Reports no additional complaints Physical Exam Const General: cooperative, healthy appearing and no acute distress Orientation/consciousness: patient oriented x3 HEENT Head: Yes normal to inspection, Yes normocephalic and Yes atraumatic Eyes Conjunctivae: conjunctivae normal Neck Neck: Yes normal visual inspection and Yes trachea midline Chest Chest palpation & inspection: normal inspection of the chest Resp Effort & Inspection: normal respiratory effort Cardio Rate: regular rate GI Inspection: Yes normal to inspection Skin General skin exam: no rashes or lesions noted Neuro General: patient oriented x3 Extrem General: No edema Psych Appearance: grossly normal Results AMB Urinalysis, Automated UA Leukoctes 0 Catherine/uL Last Edit by [facility] on 11/17/23 08:35 UA Nitrite Negative Last Edit by [facility] on 11/17/23 08:35 UA Urobilinogen 0.2 mg/dL Last Edit by [facility] on 11/17/23 08:3 5 UA Protein 0 mg/dL Last Edit by [facility] on 11/17/23 08:35 UA pH 5.5 Last Edit by [facility] on 11/17/23 08:35 UA Blood 25 Alejandro/uL Last Edit by [facility] on 11/17/23 08:35 UA Specific [place] 1.015 Last Edit by [facility] on 11/17/23 08: 35 UA Ketone Negative Last Edit by [facility] on 11/17/23 08:35 UA Bilirubin 0 mg/dL Last Edit by [facility] on 11/17/23 08:35 UA Glucose 0 mg/dL Last Edit by [facility] on 11/17/23 08:35 Results Reviewed Results Reviewed: Laboratory Last Values Urine pH (Auto) 5.5 11/17/23 08:31 Specific [place] (Auto) 1.015 11/17/23 08:31 Urine Protein (Auto) 0 mg/dL 11/17/23 08:31 Glucose (UA)(Auto) 0 mg/dL 11/17/23 08:31 Urine Ketones (Auto) Negative 11/17/23 08:31 Urine Blood (Auto) 25 Alejandro/uL 11/17/23 08:31 Urine Nitrite (Auto) Negative 11/17/23 08:31 Urine Bilirubin (Auto) 0 mg/dL 11/17/23 08:31 Urine Urobilinogen (Auto) 0.2 mg/dL 11/17/23 08:31 Leukocyte Esterase (Auto) 0 Catherine/uL 11/17/23 08:31 Date of Service: 11/11/23 EXAMINATION: US RETROPERITONEAL LIMITED (RENAL ONLY) CLINICAL INFORMATION: Hydronephrosis. COMPARISON: Ultrasound renal from 10/08/2023 TECHNIQUE: Scale and color images of the bilateral kidneys and bladder FINDINGS: RIGHT KIDNEY: 8.8 x 3.8 x 5.8 cm (SAG x AP x TRV). The kidney is normal in size, contour, and echogenicity. Renal cortical thickness is normal. No calculi or focal parenchymal lesions. No hydronephrosis. LEFT KIDNEY: 10.3 x 3.9 x 5.7 cm (SAG x AP x TRV). The kidney is normal in size, contour, and echogenicity. Renal cortical thickness is normal. No focal parenchymal lesions. Mild to moderate left-sided hydronephrosis with a calculus along the left ureter measuring 1.1 cm. Additional calculi are noted in the left kidney the largest measuring up to 7 mm. URINARY BLADDER: Bilateral ureteral jets are identified. IMPRESSION: 1. Mild to moderate left-sided hydronephrosis with a calculus along the left ureter measuring 1.1 cm. 2. Additional calculi are noted in the left kidney the largest measuring up to 7 mm. 3. No right-sided nephrolithiasis or hydronephrosis. 4. Bilateral ureteral jets are identified. Date of Service: 10/08/23 EXAMINATION: US RETROPERITONEAL LIMITED (RENAL ONLY) CLINICAL INFORMATION: Gross hematuria. COMPARISON: None available. TECHNIQUE: Real-time imaging of the kidneys. FINDINGS: RIGHT KIDNEY: 9.3 x 3.5 x 5.3 cm (SAG x AP x TRV). The kidney is normal in size, contour, and echogenicity. Renal cortical thickness is normal. No calculi or focal parenchymal lesions. No hydronephrosis. LEFT KIDNEY: 10.3 x 5.3 x 5.6 cm (SAG x AP x TRV). The kidney is normal in size, contour, and echogenicity. Renal cortical thickness is normal. Multiple renal calculi with largest cluster measuring in conjunction 1.6 cm in the upper pole. There is a 2.3 cm calculus in the ureteropelvic junction, possibly explaining the hydronephrosis. Bilateral ureteric jets are present. IMPRESSION: Moderate left-sided hydronephrosis with an obstructive 2.3 cm calculus in the ureteropelvic junction and multiple additional nonobstructive calculi including largest cluster measuring 1.6 cm in the upper pole. Assessment & Plan Assessment & Plan (1) Hydronephrosis: Code(s): N13.30 - Unspecified hydronephrosis Category: Medical (2) Left ureteral stone: Code(s): N20.1 - Calculus of ureter Category: Medical (3) Kidney stone: Code(s): N20.0 - Calculus of kidney Category: Medical Plan Renal ultrasound x2 left hydronephrosis. Left ureteral stone. Left renal calculi. Bilateral ureteral jets. Discussed conservative management versus ureteroscopy laser and stent placement. The patient wants to continue to monitor at this time as she has not had severe pain. Will obtain CT stone protocol. Patient will continue tamsulosin. Percocet 6. Prescribed. Orders: Orders AMB Urinalysis Automated Today Z13.9 - Encounter for screening, unspecified CT abdomen pelvis wo IV con Today N13.30 - Unspecified hydronephrosis, N20.0 - Calculus of kidney, N20.1 - Calculus of ureter Medications: New oxycodone-acetaminophen 5-325 mg (Percocet) Partial Fill upon patient request. 1 tab PO Q6-8H PRN 6 tabs 0RF pain Patient Instructions: The patient had an opportunity to ask questions regarding treatment plan. The patient expressed understanding and agreement with the above treatment plan. The patient is aware they should contact our office by phone for worsening of their current condition or the appearance of new symptoms. Compliance is encouraged with any medications and followup testing that is ordered. It is a privilege to be allowed the opportunity to participate in the urologic care of your patient. If you have any questions or concerns regarding treatment for the above conditions please do not hesitate to contact me. The office telephone contact is [phone]. This note is constructed in part using voice recognition software. While every effort has been made to ensure accuracy vice president of engineering errors may have been included. Yours sincerely, Tiago Monae MD Coding Level of Care Code New Pt Level 4 (03316) Diagnoses Hydronephrosis N13.30 Left ureteral stone N20.1 Kidney stone N20.0
== END 2023-11-17 09:05 | disposition home or self-care (01) ==
PROVIDERS: PCP Internal Medicine; Visit Provider Urology
DX: N13.30 Unspecified hydronephrosis (principal); N20.1 Calculus of ureter; N20.0 Calculus of kidney; Z13.9 Encounter for screening, unspecified
CPT/HCPCS: 99204

== ENCOUNTER → 2023-11-17 08:03 | Outpatient (BNVA) | payer OTHER, SELFPAY | PROVIDERS: PCP Internal Medicine; Visit Provider Urology | DX: N13.2 Hydronephrosis with renal and ureteral calculous obstruction (principal) | CPT/HCPCS: 81003 ==

== ENCOUNTER 2023-12-03 13:17 | Outpatient (AMB) | payer OTHER, SELFPAY ==
--- NOTE | 2023-12-03 13:18 | A.OFFVIS_ITS ---
Vital Signs 12/03/23 13:19 Height 5 ft 10 in Weight 138 lb 14.259 oz BMI 19.9 BP 132/76 Blood Pressure Location Rt brachial Position Sitting Pulse 76 Pulse Source Pulse Oximeter Pulse Oximetry (%) 99 Oxygen Delivery Method Room Air Intake Visit Reasons: pre colonoscopy screening Intake Note: Shanna presents in office today for a scheduled colo s/p consult CC; Recall colo (2013). Pt does report a new onset of B/L UQ pain which started approximately 3 mos ago. Pt states that it is intermittent and idiopathic in nature. Pt does report however, that it is sometimes worse on the L than the R, and it seems to be worse at night. Pt also reports relevant family hx (brother). Pt would like to discuss the prep options for the colo. Director Community Organization Required: No Allergies tetracycline Allergy (Mild, Verified 12/03/23 13:19) Unknown HPI HPI pre colonoscopy screening: Details: LAST VISIT: IBS (irritable bowel syndrome) Reports to have symptoms of IBS, discussed with patient the importance of avoiding some dietary triggers. FODMAP diet discussed with patient and list of food recommendations given to her. Patient reports that occasionally she will have loose stools and then some constipation. She is going to try [id number] probiotic and fiber supplement. Patient also reports that she will try Senokot tea in the evening. Plan Patient denies any cardiac or respiratory symptoms. Had symptoms of palpitation in the past, however she was cleared by Cardiology. Denies any issues with anesthesia in the past. Denies any history of sleep apnea. No history infectious diseases in the past or present. Not on any anticoagulation therapy. No family or personal history of colon cancer or polyps. Patient denies melena, hematochezia, unintentional weight loss or ribbon like stools. Discussed at length the pre-procedure, prep, diet & medications as well as what to expect prior, during and after the procedure. Stressed the importance of good bowel prep. Patient verbalizes understanding and agrees to plan of care. She was given the opportunity to ask questions and all questions answered. We will see her after the procedure. Medications New bisacodyl (Dulcolax (bisacodyl)) take 2 tabs at noon the day before your colonoscopy 10 mg (2 x 5 mg) PO ONCE 1 day 2 tabs 0RF Z12.11 polyethylene glycol 3350 (Miralax) As directed by gastroenterology department at [facility] 238 grams PO ONCE 238 grams 0RF Z12.11 TODAY'S VISIT Patient was seen in the past in December of 2020 for colonoscopy screening. Patient reports that she was unable to go for colonoscopy due to her insurance. Patient states that her colonoscopy would not have been covered. Patient states that she just retired in March. Her insurance changed. Patient denies any change since last time she was here. Occasional right upper quadrant pain. Patient is taking probiotics changed her diet. Denies melena, hematochezia, unintentional weight loss or ribbon like stools. Denies any dyspepsia, dysphagia or odynophagia. No issues and anesthesia in the past. No history of sleep apnea. Patient is not on any anticoagulation medication. Currently patient was diagnosed with kidney stone and is on tamsulosin. Patient reports that she is drinking plenty fluids. FORMERLY [facility] Medical History (Updated 12/03/23 @ 13:38 by Nargis Dueñas [facility]) Supraclavicular mass Pain Palpitations Annual physical exam Cervical adenopathy Uterine fibroid IBS (irritable bowel syndrome) Valencia syndrome Hair loss Surgical History H/O colonoscopy Family History Brother Colon polyp Social History Housing: House Alcohol intake: current Alcohol intake frequency: holidays/special occasions only Patient Tobacco Use Status: Never used Tobacco e-Cigarette/Vaping Use: Never Used service: No Current occupational status: employed Cognitive needs: No Hearing needs: No Vision needs: Yes Review of Systems Const Denies weight gain and Denies weight loss ENT Reports no additional complaints, Denies dysphagia and Denies odynophagia Card Reports no additional complaints Resp Reports no additional complaints GI Denies abdominal pain, Denies belching, Denies melena, Denies bloating, Denies change in bowel habits, Denies dysphagia, Denies excessive flatus, Denies dyspepsia, Denies heartburn, Denies diarrhea, Denies loose stools, Denies nausea, Denies odynophagia and Denies vomiting Musc Reports no additional complaints Neuro Reports no additional complaints Psych Reports no additional complaints Endo Reports no additional complaints Physical Exam Vital Signs: Last Vital Signs Pulse 76 12/03/23 13:19 BP 132/76 12/03/23 13:19 Pulse Ox 99 12/03/23 13:19 Oxygen Delivery Method Room Air 12/03/23 13:19 BMI result Body Mass Index 19.9 Const General: healthy appearing, no acute distress and well developed Nutritional Appearance: well nourished Orientation/consciousness: patient oriented x3 Resp Effort & Inspection: normal respiratory effort, able to speak in complete sentences, no tracheal deviation and symmetric chest movement Auscultation: clear to auscultation bilaterally Cardio Rate: regular rate GI Inspection: Yes normal to inspection and No distended Palpation (GI): Soft to palpation, not firm, nontender and No hepatosplenomegaly present Auscultation: normal bowel sounds General: Yes no CVA tenderness Back/Spine/Pelvis Back: no CVA tenderness Skin General skin exam: elasticity normal, turgor normal and dry skin Neuro General: patient oriented x3 Psych Appearance: grossly normal Mental Status: mental status grossly normal Assessment & Plan Assessment & Plan (1) Screen for colon cancer: Code(s): Z12.11 - Encounter for screening for malignant neoplasm of colon Plan Will send message to surgical schedulers to schedule procedure for patient. What to expect before during and after procedure discussed with patient. Stressed the importance of good bowel prep and clear liquid diet before procedure. We will see patient after the procedure. Patient will call the office if she will have any GI concerning symptoms or any questions about the procedure. Patient is agreeable to plan of care and verbalizes understanding of instructions. She was given the opportunity to ask questions and all questions answered. Thank you for allowing me to participate in her care Medications: New bisacodyl (Dulcolax (bisacodyl)) take 4 tabs at noon the day before your colonoscopy 20 mg (4 x 5 mg) PO ONCE 1 day 4 tabs 0RF Z12.11 - Encounter for screening for malignant neoplasm of colon polyethylene glycol 3350 (Miralax) As directed by gastroenterology department at [facility] 238 grams PO ONCE 238 grams 0RF Z12.11 - Encounter for screening for malignant neoplasm of colon Coding Level of Care Code Est Pt Level 3 (93393) Diagnoses Screen for colon cancer Z12.11 Time Spent (min) 30 Comment 20 minutes spent with patient and additional 10 minutes spent reviewing her records
[2023-12-03 13:19] VITALS: BP 132/76; PULSE 76; O2SAT 99; BMI 19.9
== END 2023-12-03 13:54 | disposition home or self-care (01) ==
PROVIDERS: PCP Internal Medicine; Visit Provider Nurse Practitioner Family
DX: Z01.818 Encounter for other preprocedural examination (principal); Z12.11 Encounter for screening for malignant neoplasm of colon
CPT/HCPCS: S0285

== ENCOUNTER → 2023-12-03 13:17 | Outpatient (BNVA) | payer OTHER, SELFPAY | PROVIDERS: PCP Internal Medicine; Visit Provider Nurse Practitioner Family ==

== ENCOUNTER 2023-12-12 14:01 | Outpatient (REF) | payer OTHER, SELFPAY ==
--- NOTE | ~2023-12-12 | CT_ITS ---
EXAMINATION: CT ABDOMEN AND PELVIS WITHOUT CONTRAST CLINICAL INFORMATION: Renal calculus COMPARISON: Ultrasound from November 11, 2023 TECHNIQUE: Multidetector volumetric imaging was performed from the superior aspect of the liver through the pubic symphysis. Sagittal and coronal reformatted images were obtained on the technologist's workstation. This CT examination was performed using dose optimization techniques as appropriate, variously including the following: *Automated exposure control *Adjustment of mA and/or kV according to patient size (this includes techniques or standardized protocols for targeted exams where dose is matched to indication/reason for exam; i.e. extremities or head) *Use of iterative reconstruction technique DLP: 339 mGy-cm FINDINGS: LUNG BASES: The visualized lung bases are unremarkable. LIVER, GALLBLADDER, AND BILIARY TREE: The liver is normal in size, shape, and attenuation. No focal hepatic lesion or biliary ductal dilatation is present. Gallbladder contracted without obvious stones. PANCREAS: Unremarkable. SPLEEN: Unremarkable. ADRENAL GLANDS: Unremarkable. KIDNEYS AND URETERS: The right kidney is unremarkable. There is no nonobstructing calculus in the left kidney, measured 1.1 cm in punctate calcification in the collecting system. There is fullness of collecting system of left kidney and hydroureteronephrosis due to obstruction of the proximal left ureter by 0.8 x 0.4 x 0.3 cm stone or conglomerate of stones. BLADDER: There is questionable calculus versus a 52 calcification from the uterus in the lumen of urinary bladder, measured 1.1 x 0.6 cm. GASTROINTESTINAL TRACT: There is moderate constipation. There is over distended stomach by fluid. Appendix is unremarkable. There is no diverticulitis or diverticulosis seen. Mesentery normal. ABDOMINAL WALL: No significant hernia is appreciated. LYMPH NODES: Normal. VASCULAR: Unremarkable. PELVIC VISCERA: Uterus is anteflexed OSSEOUS STRUCTURES: There are degenerative changes at the level of L4-5 and L5-S1 CT/CT abdomen pelvis wo IV con IMPRESSION: 1. Left-sided hydroureteronephrosis due to obstruction of the proximal left ureter by 0.8 x 0.4 x 0.3 cm stone or conglomerate of stones. 2. Left nephrolithiasis. 3. Questionable calculus in the lumen of urinary bladder, versus an exophytic calcified uterine fibroid. 4. Constipation. 5. Degenerative changes in the lower lumbar spine. Fleischner guidelines were followed. Electronically signed by: Julio Bowen MD 12/12/2023 04:43 PM EDT RP
== END 2023-12-12 14:02 | disposition home or self-care (01) ==
LOC: HO.CT 14:01
PROVIDERS: PCP Internal Medicine; Visit Provider Urology
DX: N20.0 Calculus of kidney (principal); N20.1 Calculus of ureter; N13.30 Unspecified hydronephrosis
CPT/HCPCS: 74176

== ENCOUNTER 2023-12-18 09:14 | Outpatient (AMB) | payer OTHER, SELFPAY ==
--- NOTE | 2023-12-18 09:06 | MHC.OFFVIS ---
Intake Visit Reasons: CT results Intake Note: Patient is present for CT RESULTS Urology Medication:TAMSULOSIN, PERCOCET Antibiotic Allergy:TETRACYCLINE Blood Thinner:NONE Biomedical Engineering Technologist Required: No Allergies tetracycline Allergy (Mild, Verified 12/18/23 09:07) Unknown HPI Comments Details: 12/18/2023--I reviewed follow-up CT scan 12/12/2023, with Shanna, left hydronephrosis persist due to obstructive left ureteral stone. I have discussed placement of a left ureteral stent, ureteroscopy and possible laser lithotripsy. Risks discussed included but not limited to, possible need to repeat procedure if stone is not completely fragmented, Irritative voiding symptoms, bladder spasms, urgency, blood in urine. Also further stone burden in the left kidney at is nonobstructive. Right kidneys unremarkable. Review of chart: 11/17/23--Shanna is a 63-year-old female who is here for evaluation for kidney stones. The patient denies pain at this time. States that she noted brownish colored urine and then blood in the urine. She was seen by her PCP and was sent for ultrasound evaluation. Reviewed renal ultrasound x2 left hydronephrosis. Left ureteral stone. Left renal calculi. Bilateral ureteral jets. Discussed conservative management versus ureteroscopy laser and stent placement. The patient wants to continue to monitor at this time as she has not had severe pain. Will obtain CT stone protocol. Patient will continue tamsulosin. Percocet 6. Prescribed. [facility]LY [facility] Medical History Supraclavicular mass Pain Palpitations Annual physical exam Cervical adenopathy Uterine fibroid IBS (irritable bowel syndrome) Valencia syndrome Hair loss Surgical History H/O colonoscopy Family History Brother Colon polyp Social History Housing: House Alcohol intake: current Alcohol intake frequency: holidays/special occasions only Patient Tobacco Use Status: Never used Tobacco e-Cigarette/Vaping Use: Never Used service: No Current occupational status: employed Cognitive needs: No Hearing needs: No Vision needs: Yes Review of Systems Const All systems reviewed & are unremarkable except as noted in HPI and below Reports no additional complaints Eyes Reports no additional complaints ENT Reports no additional complaints Card Reports no additional complaints Resp Reports no additional complaints GI Reports no additional complaints Reports as per HPI Musc Reports no additional complaints Skin/Breast Reports system reviewed and no additional complaints, except as documented Neuro Reports no additional complaints Psych Reports no additional complaints Endo Reports no additional complaints Corey/Lymph Reports no additional complaints Aller/Immun Reports no additional complaints Telehealth Telehealth Telehealth Platform: [facility] Location of provider rendering services: practice address Location of patient: address on file Patient Identification confirmed using: Name, : Yes Patient verbally consented to treatment: Yes Patient verbally consented to billing insurance company: Yes Patient informed of any privacy concerns related to visit: Yes Results Reviewed Results Reviewed: Date of Service: 12/12/23 EXAMINATION: CT ABDOMEN AND PELVIS WITHOUT CONTRAST CLINICAL INFORMATION: Renal calculus COMPARISON: Ultrasound from November 11, 2023 TECHNIQUE: Multidetector volumetric imaging was performed from the superior aspect of the liver through the pubic symphysis. Sagittal and coronal reformatted images were obtained on the technologist's workstation. This CT examination was performed using dose optimization techniques as appropriate, variously including the following: *Automated exposure control *Adjustment of mA and/or kV according to patient size (this includes techniques or standardized protocols for targeted exams where dose is matched to indication/reason for exam; i.e. extremities or head) *Use of iterative reconstruction technique DLP: 339 mGy-cm FINDINGS: LUNG BASES: The visualized lung bases are unremarkable. LIVER, GALLBLADDER, AND BILIARY TREE: The liver is normal in size, shape, and attenuation. No focal hepatic lesion or biliary ductal dilatation is present. Gallbladder contracted without obvious stones. PANCREAS: Unremarkable. SPLEEN: Unremarkable. ADRENAL GLANDS: Unremarkable. KIDNEYS AND URETERS: The right kidney is unremarkable. There is no nonobstructing calculus in the left kidney, measured 1.1 cm in punctate calcification in the collecting system. There is fullness of collecting system of left kidney and hydroureteronephrosis due to obstruction of the proximal left ureter by 0.8 x 0.4 x 0.3 cm stone or conglomerate of stones. BLADDER: There is questionable calculus versus a 52 calcification from the uterus in the lumen of urinary bladder, measured 1.1 x 0.6 cm. GASTROINTESTINAL TRACT: There is moderate constipation. There is over distended stomach by fluid. Appendix is unremarkable. There is no diverticulitis or diverticulosis seen. Mesentery normal. ABDOMINAL WALL: No significant hernia is appreciated. LYMPH NODES: Normal. VASCULAR: Unremarkable. PELVIC VISCERA: Uterus is anteflexed OSSEOUS STRUCTURES: There are degenerative changes at the level of L4-5 and L5-S1 IMPRESSION: 1. Left-sided hydroureteronephrosis due to obstruction of the proximal left ureter by 0.8 x 0.4 x 0.3 cm stone or conglomerate of stones. 2. Left nephrolithiasis. 3. Questionable calculus in the lumen of urinary bladder, versus an exophytic calcified uterine fibroid. 4. Constipation. 5. Degenerative changes in the lower lumbar spine. Date of Service: 11/11/23 EXAMINATION: US RETROPERITONEAL LIMITED (RENAL ONLY) CLINICAL INFORMATION: Hydronephrosis. COMPARISON: Ultrasound renal from 10/08/2023 TECHNIQUE: Scale and color images of the bilateral kidneys and bladder FINDINGS: RIGHT KIDNEY: 8.8 x 3.8 x 5.8 cm (SAG x AP x TRV). The kidney is normal in size, contour, and echogenicity. Renal cortical thickness is normal. No calculi or focal parenchymal lesions. No hydronephrosis. LEFT KIDNEY: 10.3 x 3.9 x 5.7 cm (SAG x AP x TRV). The kidney is normal in size, contour, and echogenicity. Renal cortical thickness is normal. No focal parenchymal lesions. Mild to moderate left-sided hydronephrosis with a calculus along the left ureter measuring 1.1 cm. Additional calculi are noted in the left kidney the largest measuring up to 7 mm. URINARY BLADDER: Bilateral ureteral jets are identified. IMPRESSION: 1. Mild to moderate left-sided hydronephrosis with a calculus along the left ureter measuring 1.1 cm. 2. Additional calculi are noted in the left kidney the largest measuring up to 7 mm. 3. No right-sided nephrolithiasis or hydronephrosis. 4. Bilateral ureteral jets are identified. Date of Service: 10/08/23 EXAMINATION: US RETROPERITONEAL LIMITED (RENAL ONLY) CLINICAL INFORMATION: Gross hematuria. COMPARISON: None available. TECHNIQUE: Real-time imaging of the kidneys. FINDINGS: RIGHT KIDNEY: 9.3 x 3.5 x 5.3 cm (SAG x AP x TRV). The kidney is normal in size, contour, and echogenicity. Renal cortical thickness is normal. No calculi or focal parenchymal lesions. No hydronephrosis. LEFT KIDNEY: 10.3 x 5.3 x 5.6 cm (SAG x AP x TRV). The kidney is normal in size, contour, and echogenicity. Renal cortical thickness is normal. Multiple renal calculi with largest cluster measuring in conjunction 1.6 cm in the upper pole. There is a 2.3 cm calculus in the ureteropelvic junction, possibly explaining the hydronephrosis. Bilateral ureteric jets are present. IMPRESSION: Moderate left-sided hydronephrosis with an obstructive 2.3 cm calculus in the ureteropelvic junction and multiple additional nonobstructive calculi including largest cluster measuring 1.6 cm in the upper pole. Assessment & Plan Assessment & Plan (1) Hydronephrosis: Code(s): N13.30 - Unspecified hydronephrosis Category: Medical (2) Left ureteral stone: Code(s): N20.1 - Calculus of ureter Category: Medical (3) Kidney stone: Code(s): N20.0 - Calculus of kidney Category: Medical Plan I reviewed follow-up CT scan 12/12/2023, with Shanna, left hydronephrosis persist due to obstructive left ureteral stone. I have discussed placement of a left ureteral stent, ureteroscopy and possible laser lithotripsy. Risks discussed included but not limited to, possible need to repeat procedure if stone is not completely fragmented, Irritative voiding symptoms, bladder spasms, urgency, blood in urine. Also further stone burden in the left kidney at is nonobstructive. Right kidneys unremarkable. Coding Level of Care Code Tele Est Pt Level 4 (75628) Diagnoses Hydronephrosis N13.30 Left ureteral stone N20.1 Kidney stone N20.0
== END 2023-12-18 11:29 | disposition home or self-care (01) ==
LOC: HO.HUSH 09:14
PROVIDERS: PCP Internal Medicine; Visit Provider Urology
DX: N13.30 Unspecified hydronephrosis (principal); N20.1 Calculus of ureter; N20.0 Calculus of kidney
CPT/HCPCS: 99214

== ENCOUNTER → 2023-12-18 09:14 | Outpatient (BNVA) | payer OTHER, SELFPAY | PROVIDERS: PCP Internal Medicine; Visit Provider Urology ==

== ENCOUNTER 2023-12-23 07:11 | Day surgery (SDC) | payer OTHER, SELFPAY ==
--- NOTE | 2023-12-19 12:39 | HO.ANESPROP2 ---
Documented by User: Kelly Vargas NP 12/19/23 12:40 HPI - Anesthesia Eval Consult details Narrative: 63yo F for Left Cystoscopy, Ureteroroscopy, Retro, Laser with stent placement PMFSH Active Problems Active Problems: All Active Problems Postmenopausal (Acute) Kidney stone (Acute) Left ureteral stone (Acute) Cough (Acute) Hydronephrosis (Acute) Hematuria (Acute) Vitamin D deficiency (Acute) Dysplastic nevi (Acute) Osteochondroma (Acute) Vaginitis (Acute) Pain (Acute) Normal pelvic exam (Acute) Annual physical exam (Acute) Palpitations (Acute) Annual physical exam (Acute) Cervical adenopathy (Acute) Hair loss (Acute) Past Medical History Medical History Supraclavicular mass Pain Palpitations Annual physical exam Cervical adenopathy Uterine fibroid IBS (irritable bowel syndrome) Valencia syndrome Hair loss Family History Family History Brother Colon polyp Surgical History Surgical History H/O colonoscopy Social History Social History Housing: House Alcohol intake: current Alcohol intake frequency: holidays/special occasions only Patient Tobacco Use Status: Never used Tobacco e-Cigarette/Vaping Use: Never Used Use of substances other than those prescribed or required for medical reasons: No Are you DNR?: No Advance Directives: No Advance Directives Information Provided: Yes Recently lost weight without trying: No service: No Current occupational status: employed Cognitive needs: No Hearing needs: No Vision needs: Yes Meds Allergies Allergy/AdvReac Type Severity Reaction Status Date / Time tetracycline Allergy Mild Unknown Verified 12/23/23 07:51 Home Medications ?Medication ?Instructions ?Recorded ?Confirmed ?Last Taken ?Type multivitamin (Daily Multi-Vitamin 1 tab PO DAILY 11/06/22 12/23/23 Unknown History tablet) Exam Pertinent Lab Results Pertinent Lab Results: Laboratory Tests 11/04/23 11:06 WBC 4.4 L Hgb 13.5 Hct 40.8 Plt Count 151 L Sodium 141 Potassium 4.1 Chloride 105 Carbon Dioxide 26 BUN 16 Creatinine 0.82 Assessment and Plan Assessment Anesthesia Assessment: PAT Visit Documented by User: Guera Price MD 12/23/23 09:08 [facility] Past Medical History Medical History Supraclavicular mass Pain Palpitations Annual physical exam Cervical adenopathy Uterine fibroid IBS (irritable bowel syndrome) Valencia syndrome Hair loss Family History Family History Brother Colon polyp Family history of problems with anesthesia: No Surgical History Surgical History H/O colonoscopy History of Problems with Anesthesia: No Social History Social History Housing: House Alcohol intake: current Alcohol intake frequency: holidays/special occasions only Patient Tobacco Use Status: Never used Tobacco e-Cigarette/Vaping Use: Never Used Use of substances other than those prescribed or required for medical reasons: No Are you DNR?: No Advance Directives: No Advance Directives Information Provided: Yes Recently lost weight without trying: No service: No Current occupational status: employed Cognitive needs: No Hearing needs: No Vision needs: Yes Meds Allergies Allergy/AdvReac Type Severity Reaction Status Date / Time tetracycline Allergy Mild Unknown Verified 12/23/23 07:51 Home Medications ?Medication ?Instructions ?Recorded ?Confirmed ?Last Taken ?Type multivitamin (Daily Multi-Vitamin 1 tab PO DAILY 11/06/22 12/23/23 Unknown History tablet) Exam Airway Mallampati Class: II TM Dist: >3cm Neck ROM: Full Heart: rrr Lungs: cta Assessment and Plan Assessment Anesthesia Assessment: Anesthesia Plan Discussed Final Anesthetic Review Family History of Problems with Anesthesia: No History of Problems with Anesthesia: No NPO: Yes ASA Class: II Final Preanesthetic Review: No Changes in Pt Med Stat, Meds/Allgs Chart Reviewed, Consent Obtained/Reviewed and Anes Risks/Benef Reviewed Patient Risk: Low Procedure Risk: Low Anesthetic Plan Anesthetic Plan: GA Disposition: Standard PACU
[2023-12-23] VITALS (7 sets, daily range): BP systolic 124–145; BP diastolic 47–74; PULSE 55–73; RESP 16; TEMP 36.3–37.1; O2SAT 99–100; BMI 19.8
[2023-12-23] MEDS: Lactated Ringers 1,000 ML 100 ML IVCONT (08:30)
--- NOTE | 2023-12-23 09:02 | MHC.SHP ---
Pre-Procedural Eval Section A - 24 Hr Update-Section A only Date of Service: 12/23/23 The patient is an INPATIENT: No The patient has been examined within 24 hours of the surgical procedure. The History & Physical has been completed within 30 days and I have reviewed it.: Yes Section B - Complete if H&P > 30 days Chief Complaint: Calculus of kidney Allergies: Allergies Allergy/AdvReac Type Severity Reaction Status Date / Time tetracycline Allergy Mild Unknown Verified 12/23/23 07:51 Plan Diagnosis/Plan: Unchanged I have reviewed the history and physical and performed a pertinent physical examination on my patient. No changes have occurred unless specified. Plan for Cystoscopy, left ureteroscopy, possible laser lithotripsy, possible ureteral stent. Risks discussed included but not limited to, possible need to repeat procedure if stone is not completely fragmented, Irritative voiding symptoms, bladder spasms, urgency, blood in urine. Time Spent With Patient Time: Total time managing care of this patient today ____ minutes.
--- NOTE | 2023-12-23 10:29 | P.OP_ITS ---
Operative Note Operative Note Date of Service: 12/23/23 Narrative: PreOperative Diagnosis:?? Left ureteral stone, left hydronephrosis, obstructive uropathy Post Operative Diagnosis:?? Left ureteral stone, left hydronephrosis, obstructive uropathy Procedure: - Cystoscopy, left retrograde, left ureteroscopy, stent insertion, 6 Taiwanese by 22-32 cm Surgeon:?Dr Tiago Monae Anesthesia:? General Indications for procedure: Left proximal ureteral stone with persistent hydronephrosis Procedure: After informed consent was verified the patient was brought to the operating placed on the OR table in supine position.? General Anesthesia was administered per protocol.? The patient was placed in lithotomy position, prepped and draped in the usual sterile fashion.? Safety pause time-out and side of surgery confirmed.? Antibiotics confirmed. 2% lidocaine jelly 10 mL was passed transurethrally. A 22 Taiwanese cystoscope was inserted transurethrally. The bladder was visualized.? Both ureteric orifices were in normal position. An open-ended ureteral catheter was passed into the left ureteral orifice and a retrograde examination was performed. There was a filling defect in the proximal ureter and dilatation of the proximal ureter and renal pelvis and calyces. A guidewire was passed through the ureteral catheter into the kidney. The balloon dilator size 12 fr x 4 cm was passed over the guide-wire the balloon was inflated to 10 mmHg and the intramural ureter was dilated for 40 seconds. The balloon was deflated and removed. The guidewire was used as the safety and was attached to the draping. The semi rigid ureteroscope along with a 2nd guidewire was passed transurethrally to the level of the stone in the ureter. The stone was noted to be impacted and the ureter appeared tortuous and inflamed in the area of the ureteral calculus. The ureteroscope was removed leaving the safety guidewire in place. A? 6 Taiwanese by 22-32 cm stent was passed over the guidewire and placed into the ureter and renal pelvis under a combination of fluoroscopy and direct visualization. The bladder was emptied.? The rigid cystoscope was removed. ? The patient tolerated the procedure well and was brought to the recovery room in stable condition. Complications: None Drains: Ureteral stent as dictated above
[2023-12-23] MEDS: Phenazopyridine HCL 200 MG TABLET PO (10:52)
== END 2023-12-23 11:50 | disposition home or self-care (01) ==
PROVIDERS: PCP Internal Medicine; Visit Provider Urology
PROC: (CPT 52332; principal; 2023-12-23 09:00)
DX: N13.2 Hydronephrosis with renal and ureteral calculous obstruction (principal); I73.00 Raynaud's syndrome without gangrene; L65.9 Nonscarring hair loss, unspecified; Z79.899 Other long term (current) drug therapy; Z88.1 Allergy status to other antibiotic agents
CPT/HCPCS: 52332; C1726; C1758; C1769; C2617; J0690; J1100; J1885; J2405; J2704; J3010; Q9967

== ENCOUNTER → 2023-12-23 07:11 | Outpatient (BNV) | payer OTHER, SELFPAY | PROVIDERS: PCP Internal Medicine; Visit Provider Urology | DX: N13.2 Hydronephrosis with renal and ureteral calculous obstruction (principal) | CPT/HCPCS: 52332 ==

== ENCOUNTER 2024-01-02 12:45 | Outpatient (REF) | payer OTHER, SELFPAY ==
--- NOTE | ~2024-01-02 | XR_ITS ---
EXAMINATION: XR ABDOMEN KUB CLINICAL INFORMATION: Status post left ureteral stent on 12/23/2023. Discomfort with stent. COMPARISON: CT abdomen/pelvis dated 12/12/2023. TECHNIQUE: AP views of the abdomen. FINDINGS: Redemonstration of a left ureteral stone in expected anatomic alignment. Left upper pole renal stone measuring up to 1.1 cm, unchanged. The previously seen proximal left ureteral stone is not well visualized. Nonobstructive bowel gas pattern. No acute osseous abnormality. XR/XR KUB IMPRESSION: Left ureteral stone in expected anatomic alignment. Left upper pole renal stone measuring up to 1.1 cm, unchanged. Previously seen proximal left ureteral stone not well visualized. Electronically signed by: Selwyn Schneider MD 01/07/2024 08:55 PM EDT
== END 2024-01-02 12:46 | disposition home or self-care (01) ==
LOC: HO.XRAY 12:45
PROVIDERS: PCP Internal Medicine; Visit Provider Urology
DX: N20.1 Calculus of ureter (principal); N20.0 Calculus of kidney; Z96.0 Presence of urogenital implants
CPT/HCPCS: 74018

== ENCOUNTER 2024-01-07 12:54 | Outpatient (AMB) | payer OTHER, SELFPAY ==
--- NOTE | 2024-01-07 13:09 | A.OFFVIS_ITS ---
Intake Visit Reasons: Stent follow up/Discuss next procedure Intake Note: Patient is Present for Post Stent Placement/Discuss Further Treatment for Repeat Ureteroscopy Urology Medication: Oxybutynin, Tamsulosin Antibiotic Allergies: Tetracycline Blood Thinners: None KUB Xray was completed on 01/02/24 Report has not been read Request to Radiologist has been made to read report Cyber Crime Investigator Required: No Accompanied by: Self / Same As Patient Allergies tetracycline Allergy (Mild, Verified 01/07/24 13:15) Unknown HPI Comments Details: 01/07/24--s/p left ureteral stent on 12/23/23. FU with KUB prior. Xray not officially read by Radiologist at time patient was seen in the office. I reviewed KUB image with patient Left proximal ureteral stone not visualized, calcification in the left renal fossae likely kidney stone noted on previous CT. I discussed alternative treatment options ureteroscopy laser lithotripsy versus ESWL, shockwave lithotripsy. Review of chart: 12/18/2023--I reviewed follow-up CT scan 12/12/2023, with Shanna, left hydronephrosis persist due to obstructive left ureteral stone. I have discussed placement of a left ureteral stent, ureteroscopy and possible laser lithotripsy. Risks discussed included but not limited to, possible need to repeat procedure if stone is not completely fragmented, Irritative voiding symptoms, bladder spasms, urgency, blood in urine. Also further stone burden in the left kidney at is nonobstructive. Right kidneys unremarkable. 11/17/23--Shanna is a 63-year-old female who is here for evaluation for kidney stones. The patient denies pain at this time. States that she noted brownish colored urine and then blood in the urine. She was seen by her PCP and was sent for ultrasound evaluation. Reviewed renal ultrasound x2 left hydronephrosis. Left ureteral stone. Left renal calculi. Bilateral ureteral jets. Discussed conservative management versus ureteroscopy laser and stent placement. The patient wants to continue to monitor at this time as she has not had severe pain. Will obtain CT stone protocol. Patient will continue tamsulosin. Percocet 6. Prescribed. [facility] Medical History Supraclavicular mass Pain Palpitations Annual physical exam Cervical adenopathy Uterine fibroid IBS (irritable bowel syndrome) Valencia syndrome Hair loss Surgical History H/O colonoscopy Family History Brother Colon polyp Social History Housing: House Alcohol intake: current Alcohol intake frequency: holidays/special occasions only Patient Tobacco Use Status: Never used Tobacco e-Cigarette/Vaping Use: Never Used service: No Current occupational status: employed Cognitive needs: No Hearing needs: No Vision needs: Yes Review of Systems Const All systems reviewed & are unremarkable except as noted in HPI and below Reports no additional complaints Eyes Reports no additional complaints ENT Reports no additional complaints Card Reports no additional complaints Resp Reports no additional complaints GI Reports no additional complaints Reports as per HPI Musc Reports no additional complaints Skin/Breast Reports system reviewed and no additional complaints, except as documented Neuro Reports no additional complaints Psych Reports no additional complaints Endo Reports no additional complaints Corey/Lymph Reports no additional complaints Aller/Immun Reports no additional complaints Results Reviewed Results Reviewed: Date of Service: 12/12/23 EXAMINATION: CT ABDOMEN AND PELVIS WITHOUT CONTRAST CLINICAL INFORMATION: Renal calculus COMPARISON: Ultrasound from November 11, 2023 TECHNIQUE: Multidetector volumetric imaging was performed from the superior aspect of the liver through the pubic symphysis. Sagittal and coronal reformatted images were obtained on the technologist's workstation. This CT examination was performed using dose optimization techniques as appropriate, variously including the following: *Automated exposure control *Adjustment of mA and/or kV according to patient size (this includes techniques or standardized protocols for targeted exams where dose is matched to indication/reason for exam; i.e. extremities or head) *Use of iterative reconstruction technique DLP: 339 mGy-cm FINDINGS: LUNG BASES: The visualized lung bases are unremarkable. LIVER, GALLBLADDER, AND BILIARY TREE: The liver is normal in size, shape, and attenuation. No focal hepatic lesion or biliary ductal dilatation is present. Gallbladder contracted without obvious stones. PANCREAS: Unremarkable. SPLEEN: Unremarkable. ADRENAL GLANDS: Unremarkable. KIDNEYS AND URETERS: The right kidney is unremarkable. There is no nonobstructing calculus in the left kidney, measured 1.1 cm in punctate calcification in the collecting system. There is fullness of collecting system of left kidney and hydroureteronephrosis due to obstruction of the proximal left ureter by 0.8 x 0.4 x 0.3 cm stone or conglomerate of stones. BLADDER: There is questionable calculus versus a 52 calcification from the uterus in the lumen of urinary bladder, measured 1.1 x 0.6 cm. GASTROINTESTINAL TRACT: There is moderate constipation. There is over distended stomach by fluid. Appendix is unremarkable. There is no diverticulitis or diverticulosis seen. Mesentery normal. ABDOMINAL WALL: No significant hernia is appreciated. LYMPH NODES: Normal. VASCULAR: Unremarkable. PELVIC VISCERA: Uterus is anteflexed OSSEOUS STRUCTURES: There are degenerative changes at the level of L4-5 and L5-S1 IMPRESSION: 1. Left-sided hydroureteronephrosis due to obstruction of the proximal left ureter by 0.8 x 0.4 x 0.3 cm stone or conglomerate of stones. 2. Left nephrolithiasis. 3. Questionable calculus in the lumen of urinary bladder, versus an exophytic calcified uterine fibroid. 4. Constipation. 5. Degenerative changes in the lower lumbar spine. Date of Service: 11/11/23 EXAMINATION: US RETROPERITONEAL LIMITED (RENAL ONLY) CLINICAL INFORMATION: Hydronephrosis. COMPARISON: Ultrasound renal from 10/08/2023 TECHNIQUE: Scale and color images of the bilateral kidneys and bladder FINDINGS: RIGHT KIDNEY: 8.8 x 3.8 x 5.8 cm (SAG x AP x TRV). The kidney is normal in size, contour, and echogenicity. Renal cortical thickness is normal. No calculi or focal parenchymal lesions. No hydronephrosis. LEFT KIDNEY: 10.3 x 3.9 x 5.7 cm (SAG x AP x TRV). The kidney is normal in size, contour, and echogenicity. Renal cortical thickness is normal. No focal parenchymal lesions. Mild to moderate left-sided hydronephrosis with a calculus along the left ureter measuring 1.1 cm. Additional calculi are noted in the left kidney the largest measuring up to 7 mm. URINARY BLADDER: Bilateral ureteral jets are identified. IMPRESSION: 1. Mild to moderate left-sided hydronephrosis with a calculus along the left ureter measuring 1.1 cm. 2. Additional calculi are noted in the left kidney the largest measuring up to 7 mm. 3. No right-sided nephrolithiasis or hydronephrosis. 4. Bilateral ureteral jets are identified. Date of Service: 10/08/23 EXAMINATION: US RETROPERITONEAL LIMITED (RENAL ONLY) CLINICAL INFORMATION: Gross hematuria. COMPARISON: None available. TECHNIQUE: Real-time imaging of the kidneys. FINDINGS: RIGHT KIDNEY: 9.3 x 3.5 x 5.3 cm (SAG x AP x TRV). The kidney is normal in size, contour, and echogenicity. Renal cortical thickness is normal. No calculi or focal parenchymal lesions. No hydronephrosis. LEFT KIDNEY: 10.3 x 5.3 x 5.6 cm (SAG x AP x TRV). The kidney is normal in size, contour, and echogenicity. Renal cortical thickness is normal. Multiple renal calculi with largest cluster measuring in conjunction 1.6 cm in the upper pole. There is a 2.3 cm calculus in the ureteropelvic junction, possibly explaining the hydronephrosis. Bilateral ureteric jets are present. IMPRESSION: Moderate left-sided hydronephrosis with an obstructive 2.3 cm calculus in the ureteropelvic junction and multiple additional nonobstructive calculi including largest cluster measuring 1.6 cm in the upper pole. Assessment & Plan Assessment & Plan (1) Hydronephrosis: Code(s): N13.30 - Unspecified hydronephrosis Category: Medical (2) Left ureteral stone: Code(s): N20.1 - Calculus of ureter Category: Medical (3) Kidney stone: Code(s): N20.0 - Calculus of kidney Category: Medical Plan Left nephrolithiasis, left kidney stone and left proximal ureteral stone with hydronephrosis; status post ureteral stent on 12/23/2023. Discussed further treatment options for stone management. Patient Instructions: The patient had an opportunity to ask questions regarding treatment plan. The patient expressed understanding and agreement with the above treatment plan. The patient is aware they should contact our office by phone for worsening of their current condition or the appearance of new symptoms. Compliance is encouraged with any medications and followup testing that is ordered. It is a privilege to be allowed the opportunity to participate in the urologic care of your patient. If you have any questions or concerns regarding treatment for the above conditions please do not hesitate to contact me. The office telephone contact is [phone]. This note is constructed in part using voice recognition software. While every effort has been made to ensure accuracy sales merchandiser errors may have been included. Yours sincerely, Tiago Monae MD Coding Level of Care Code Est Pt Level 4 (30491) Diagnoses Hydronephrosis N13.30 Left ureteral stone N20.1 Kidney stone N20.0
== END 2024-01-07 14:59 | disposition home or self-care (01) ==
PROVIDERS: PCP Internal Medicine; Visit Provider Urology
DX: N13.30 Unspecified hydronephrosis (principal); N20.1 Calculus of ureter; N20.0 Calculus of kidney
CPT/HCPCS: 99214

== ENCOUNTER → 2024-01-07 12:54 | Outpatient (BNVA) | payer OTHER, SELFPAY | PROVIDERS: PCP Internal Medicine; Visit Provider Urology ==

== ENCOUNTER 2024-01-21 10:45 | Day surgery (SDC) | payer OTHER, SELFPAY ==
--- NOTE | 2024-01-20 11:14 | P.CONAN_ITS ---
Documented by User: Kelly Vargas NP 01/20/24 11:14 HPI - Anesthesia Eval Consult details Narrative: 63yo F for Left Lithotripsy ESW,with possible stent exchange s/p cysto etc 12/2023 with GA-LMA 4 PMFSH Active Problems Active Problems: All Active Problems Fracture, toe (Acute) Ureteral stent present (Acute) Kidney stone on left side (Acute) Postmenopausal (Acute) Kidney stone (Acute) Left ureteral stone (Acute) Cough (Acute) Hydronephrosis (Acute) Hematuria (Acute) Vitamin D deficiency (Acute) Dysplastic nevi (Acute) Osteochondroma (Acute) Vaginitis (Acute) Pain (Acute) Normal pelvic exam (Acute) Annual physical exam (Acute) Palpitations (Acute) Annual physical exam (Acute) Cervical adenopathy (Acute) Hair loss (Acute) Past Medical History Medical History Supraclavicular mass Pain Palpitations Annual physical exam Cervical adenopathy Uterine fibroid IBS (irritable bowel syndrome) Valencia syndrome Hair loss Family History Family History Brother Colon polyp Family history of problems with anesthesia: No Surgical History Surgical History H/O colonoscopy History of Problems with Anesthesia: No Social History Social History Housing: House Are you a primary emergency care attendant to a significant other at home: No Do you presently have visiting nurse or other home services: No Alcohol intake: current Alcohol intake frequency: holidays/special occasions only Patient Tobacco Use Status: Never used Tobacco e-Cigarette/Vaping Use: Never Used Use of substances other than those prescribed or required for medical reasons: No Have you been hit, kicked, punched, or otherwise hurt by someone within the past year? If so, by whom?: No Are you DNR?: No Advance Directives: No Advance Directives Information Provided: Yes Recently lost weight without trying: No Nutrition Risks: No Nutritional Risk Patient : No service: No Current occupational status: employed Cognitive needs: No Hearing needs: No Vision needs: Yes Meds Allergies Allergy/AdvReac Type Severity Reaction Status Date / Time tetracycline Allergy Mild Unknown Verified 01/21/24 11:42 Home Medications ?Medication ?Instructions ?Recorded ?Confirmed ?Last Taken ?Type multivitamin (Daily Multi-Vitamin 1 tab PO DAILY 11/06/22 01/21/24 Unknown History tablet) Exam Pertinent Lab Results Pertinent Lab Results: Laboratory Tests 11/04/23 11:06 WBC 4.4 L Hgb 13.5 Hct 40.8 Plt Count 151 L Sodium 141 Potassium 4.1 Chloride 105 Carbon Dioxide 26 BUN 16 Creatinine 0.82 Assessment and Plan Assessment Anesthesia Assessment: Chart Reviewed Final Anesthetic Review Family History of Problems with Anesthesia: No History of Problems with Anesthesia: No Documented by User: Jo-Ann Pozo MD 01/21/24 13:50 [facility] Past Medical History Medical History Supraclavicular mass Pain Palpitations Annual physical exam Cervical adenopathy Uterine fibroid IBS (irritable bowel syndrome) Valencia syndrome Hair loss Family History Family History Brother Colon polyp Surgical History Surgical History H/O colonoscopy Social History Social History Housing: House Are you a primary emergency care attendant to a significant other at home: No Do you presently have visiting nurse or other home services: No Alcohol intake: current Alcohol intake frequency: holidays/special occasions only Patient Tobacco Use Status: Never used Tobacco e-Cigarette/Vaping Use: Never Used Use of substances other than those prescribed or required for medical reasons: No Have you been hit, kicked, punched, or otherwise hurt by someone within the past year? If so, by whom?: No Are you DNR?: No Advance Directives: No Advance Directives Information Provided: Yes Recently lost weight without trying: No Nutrition Risks: No Nutritional Risk Patient : No service: No Current occupational status: employed Cognitive needs: No Hearing needs: No Vision needs: Yes Meds Allergies Allergy/AdvReac Type Severity Reaction Status Date / Time tetracycline Allergy Mild Unknown Verified 01/21/24 11:42 Home Medications ?Medication ?Instructions ?Recorded ?Confirmed ?Last Taken ?Type multivitamin (Daily Multi-Vitamin 1 tab PO DAILY 11/06/22 01/21/24 Unknown History tablet) Exam Airway Mallampati Class: II TM Dist: >3cm Neck ROM: Full Heart: rrr Lungs: cta Assessment and Plan Assessment Anesthesia Assessment: Anesthesia Plan Discussed Final Anesthetic Review NPO: Yes ASA Class: II Final Preanesthetic Review: No Changes in Pt Med Stat, Meds/Allgs Chart Reviewed and Consent Obtained/Reviewed Patient Risk: Low Procedure Risk: Low Anesthetic Plan Anesthetic Plan: GA Disposition: Standard PACU
--- NOTE | ~2024-01-21 | XR_ITS ---
EXAMINATION: XR KUB CLINICAL INDICATION: Pre ESWL. Left sided stone. COMPARISON: XR KUB January 02, 2024. CT scan dated December 12, 2023. TECHNIQUE: AP view of the abdomen. FINDINGS: Overlying bowel contents limits sensitivity for subtle urinary tract stone. There has been no significant radiographic change compared with January 02, 2024. Approximately 1.2 cm calcification projects over the mid to upper left renal shadow. No calcification is seen on the right. The proximal loop of a left double-J ureteral stent projects over the expected location of the left renal pelvis, and the distal loop projects over the expected location of the urinary bladder. No evidence of intestinal obstruction or free air. No soft tissue mass or organomegaly identified. Lower lumbar degenerative change. XR/XR KUB IMPRESSION: Findings as above. Electronically signed by: River Pearl MD 04/02/2024 12:29 PM [place]
[2024-01-21] MEDS: Lactated Ringers 1,000 ML 100 ML IVCONT (11:55)
[2024-01-21 12:00] VITALS: BP 120/75; PULSE 78; RESP 14; TEMP 36.4; O2SAT 100; BMI 20.2
[2024-01-21] MEDS: Acetaminophen 1,000 MG/100 ML PIGGYBACK 400 MG IV (12:00)
--- NOTE | 2024-01-21 12:48 | MHC.SHP ---
Pre-Procedural Eval Section A - 24 Hr Update-Section A only Date of Service: 01/21/24 The patient is an INPATIENT: No The patient has been examined within 24 hours of the surgical procedure. The History & Physical has been completed within 30 days and I have reviewed it.: Yes Section B - Complete if H&P > 30 days Chief Complaint: Calculus of kidney Allergies: Allergies Allergy/AdvReac Type Severity Reaction Status Date / Time tetracycline Allergy Mild Unknown Verified 01/21/24 11:42 Plan Diagnosis/Plan: Unchanged I have reviewed the history and physical and performed a pertinent physical examination on my patient. No changes have occurred unless specified. Left ESWL. Possible stent removal. Time Spent With Patient Time: Total time managing care of this patient today ____ minutes.
[2024-01-21 14:51] VITALS: BP 121/54; PULSE 84; RESP 16; TEMP 36.7; O2SAT 98
--- NOTE | 2024-01-21 14:52 | P.OP_ITS ---
Operative Note Operative Note Date of Service: 01/21/24 Narrative: PreOperative Diagnosis:? ? Left ureteral stone, s/p left ureteral stent Post Operative Diagnosis:?Left ureteral stone, s/p left ureteral stent Procedure:?? Left ESWL Surgeon:?Dr Tiago Monae Anesthesia:? General Indications for procedure: The patient understands there is a risk of bruising or hematoma to the kidney, infection, and stone migration following the procedure and subsequent intervention may be required.? - Imaging - Left proximal ureteral stone (oblong)-- l.0 cm length x 0.4 cm width Procedure: After informed consent was verified the patient was brought to the operating room and placed in a supine position.? Anesthesia was performed per protocol. Antibiotics confirmed. Ancef 2gm and Levaquin 500 mg IV. Safety pause time-out was performed. Imaging was displayed in the room and laterality confirmed. ESWL was performed.?The stone was visualized on fluoroscopy. Shockwave lithotripsy was performed, with a maximum rate of 120 hertz. The first 300 shocks at a rate of 60 after a pause for 2 minutes was completed, shocks con tinued to a total of 2500 shocks to a maximum of power of 20 with a maximum rate of 120 hertz.?Some fragmentation of the stone was appreciated. The patient tolerated the procedure well and was transferred to the recovery area upon completion. Complications: None
[2024-01-21 14:56] VITALS: BP 141/72; PULSE 82; RESP 16; O2SAT 97
[2024-01-21 15:01] VITALS: PULSE 74; RESP 17; O2SAT 100
[2024-01-21 15:06] VITALS: BP 132/60; PULSE 74; RESP 17; O2SAT 100
[2024-01-21] MEDS: Phenazopyridine HCL 200 MG TABLET PO (15:11)
[2024-01-21 15:21] VITALS: BP 131/56; PULSE 65; RESP 17; TEMP 36.7; O2SAT 100
== END 2024-01-21 16:01 | disposition home or self-care (01) ==
PROVIDERS: PCP Internal Medicine; Visit Provider Urology
PROC: (CPT 50590; principal; 2024-01-21 12:30)
DX: N20.1 Calculus of ureter (principal); Z96.0 Presence of urogenital implants; N13.30 Unspecified hydronephrosis; Z79.899 Other long term (current) drug therapy; Z88.1 Allergy status to other antibiotic agents
CPT/HCPCS: 50590; 74018; 87086; J0131; J0690; J1100; J1940; J1956; J2003; J2405; J2704; J3010

== ENCOUNTER → 2024-01-21 10:45 | Outpatient (BNV) | payer OTHER, SELFPAY | PROVIDERS: PCP Internal Medicine; Visit Provider Urology | DX: N20.0 Calculus of kidney (principal) | CPT/HCPCS: 50590 ==

== ENCOUNTER 2024-01-27 13:16 | Day surgery (SDC) | payer OTHER, SELFPAY ==
--- NOTE | 2024-01-26 10:42 | P.CONAN_ITS ---
Documented by User: Kelly Vargas NP 01/26/24 10:44 HPI - Anesthesia Eval Consult details Narrative: 63yo F for Left Cystoscopy, Ureteroroscopy, Retro, Laser s/p ESWL 01/22/24 with GA-LMA 3 PMFSH Active Problems Active Problems: All Active Problems Fracture, toe (Acute) Ureteral stent present (Acute) Kidney stone on left side (Acute) Postmenopausal (Acute) Kidney stone (Acute) Left ureteral stone (Acute) Cough (Acute) Hydronephrosis (Acute) Hematuria (Acute) Vitamin D deficiency (Acute) Dysplastic nevi (Acute) Osteochondroma (Acute) Vaginitis (Acute) Pain (Acute) Normal pelvic exam (Acute) Annual physical exam (Acute) Palpitations (Acute) Annual physical exam (Acute) Cervical adenopathy (Acute) Hair loss (Acute) Past Medical History Medical History Supraclavicular mass Pain Palpitations Annual physical exam Cervical adenopathy Uterine fibroid IBS (irritable bowel syndrome) Valencia syndrome Hair loss Family History Family History Brother Colon polyp Family history of problems with anesthesia: No Surgical History Surgical History H/O colonoscopy History of Problems with Anesthesia: No Social History Social History Housing: House Are you a primary coronary care unit nurse to a significant other at home: No Do you presently have visiting nurse or other home services: No Alcohol intake: current Alcohol intake frequency: holidays/special occasions only Patient Tobacco Use Status: Never used Tobacco e-Cigarette/Vaping Use: Never Used Second Hand Smoke Exposure: No Use of substances other than those prescribed or required for medical reasons: No Have you been hit, kicked, punched, or otherwise hurt by someone within the past year? If so, by whom?: No Are you DNR?: No Advance Directives: No Advance Directives Information Provided: Yes Advance Directives on File: No Recently lost weight without trying: No Eating poorly because of decreased appetite: No Nutrition Risks: No Nutritional Risk Patient : No : No Poor oral hygiene: No service: No Current occupational status: employed Cognitive needs: No Hearing needs: No Vision needs: Yes Meds Allergies Allergy/AdvReac Type Severity Reaction Status Date / Time tetracycline Allergy Mild Unknown Verified 01/21/24 11:42 Home Medications ?Medication ?Instructions ?Recorded ?Confirmed ?Last Taken ?Type multivitamin (Daily Multi-Vitamin 1 tab PO DAILY 11/06/22 01/21/24 Unknown History tablet) Exam Pertinent Lab Results Pertinent Lab Results: Laboratory Tests 11/04/23 11:06 WBC 4.4 L Hgb 13.5 Hct 40.8 Plt Count 151 L Sodium 141 Potassium 4.1 Chloride 105 Carbon Dioxide 26 BUN 16 Creatinine 0.82 Assessment and Plan Assessment Anesthesia Assessment: Chart Reviewed Final Anesthetic Review Family History of Problems with Anesthesia: No History of Problems with Anesthesia: No Documented by User: Leo Pate MD 01/27/24 16:00 PMFSH Past Medical History Medical History Supraclavicular mass Pain Palpitations Annual physical exam Cervical adenopathy Uterine fibroid IBS (irritable bowel syndrome) Valencia syndrome Hair loss Family History Family History Brother Colon polyp Surgical History Surgical History H/O colonoscopy Social History Social History Housing: House Are you a primary coronary care unit nurse to a significant other at home: No Do you presently have visiting nurse or other home services: No Alcohol intake: current Alcohol intake frequency: holidays/special occasions only Patient Tobacco Use Status: Never used Tobacco e-Cigarette/Vaping Use: Never Used Second Hand Smoke Exposure: No Use of substances other than those prescribed or required for medical reasons: No Have you been hit, kicked, punched, or otherwise hurt by someone within the past year? If so, by whom?: No Are you DNR?: No Advance Directives: No Advance Directives Information Provided: Yes Advance Directives on File: No Recently lost weight without trying: No Eating poorly because of decreased appetite: No Nutrition Risks: No Nutritional Risk Patient : No : No Poor oral hygiene: No service: No Current occupational status: employed Cognitive needs: No Hearing needs: No Vision needs: Yes Meds Allergies Allergy/AdvReac Type Severity Reaction Status Date / Time tetracycline Allergy Mild Unknown Verified 01/21/24 11:42 Home Medications ?Medication ?Instructions ?Recorded ?Confirmed ?Last Taken ?Type multivitamin (Daily Multi-Vitamin 1 tab PO DAILY 11/06/22 01/21/24 Unknown History tablet) Exam Airway Mallampati Class: I TM Dist: >3cm Neck ROM: Full Loose/Missing/Broken Teeth: No Heart: ok Lungs: ok Assessment and Plan Assessment Anesthesia Assessment: Anesthesia Plan Discussed Final Anesthetic Review NPO: Yes ASA Class: II Final Preanesthetic Review: No Changes in Pt Med Stat, Meds/Allgs Chart Reviewed, Consent Obtained/Reviewed and Anes Risks/Benef Reviewed Patient Risk: Low Procedure Risk: Low Anesthetic Plan Anesthetic Plan: GA and Agree w/ Assess. and Plan Disposition: Standard PACU
[2024-01-27] VITALS (8 sets, daily range): BP systolic 113–153; BP diastolic 48–79; PULSE 51–78; RESP 16–18; TEMP 36.6–36.8; O2SAT 100; BMI 20.2
[2024-01-27] MEDS: Lactated Ringers 1,000 ML 100 ML IVCONT (13:43)
[2024-01-27] MEDS: Acetaminophen 1,000 MG/100 ML PIGGYBACK 400 MG IV (13:58)
--- NOTE | 2024-01-27 15:30 | MHC.SHP ---
Pre-Procedural Eval Section A - 24 Hr Update-Section A only Date of Service: 01/27/24 The patient is an INPATIENT: No The patient has been examined within 24 hours of the surgical procedure. The History & Physical has been completed within 30 days and I have reviewed it.: Yes Section B - Complete if H&P > 30 days Chief Complaint: Calculus of kidney Allergies: Allergies Allergy/AdvReac Type Severity Reaction Status Date / Time tetracycline Allergy Mild Unknown Verified 01/21/24 11:42 Plan Diagnosis/Plan: Unchanged I have reviewed the history and physical and performed a pertinent physical examination on my patient. No changes have occurred unless specified. Cystoscopy, left ureteroscopy, stent removal. Time Spent With Patient Time: Total time managing care of this patient today ____ minutes.
--- NOTE | 2024-01-27 16:31 | P.OP_ITS ---
Operative Note Operative Note Date of Service: 01/27/24 Narrative: PreOperative Diagnosis:?? Left ureteral stone, s/p left ureteral stent Post Operative Diagnosis:?? Left ureteral stone, s/p left ureteral stent Procedure: Cystoscopy, left ureteroscopy laser lithotripsy, stone basket stent removal Surgeon:?Dr Tiago Monae Anesthesia:? General Indications for procedure: Shanna is status post left ureteral stent, left ESWL of left large proximal ureteral stone Procedure: After informed consent was verified the patient was brought to the operating placed on the OR table in supine position.? General Anesthesia was administered per protocol.? The patient was placed in lithotomy position, prepped and draped in the usual sterile fashion.? Safety pause time-out and side of surgery co nfirmed.? Antibiotics confirmed. A 22 Italian cystoscope was inserted transurethrally. The bladder was visualized.? Both ureteric orifices were in normal position. The ureteral stent was curled in the bladder. On fluoroscopy, a sizaable stone fragment was noted remaining in the proximal ureter. A guide wire was passed along side the stent. The distal end of the ureteral stent was grasped with the flexible grasping forceps. The stent was pulled retrograde through the urethra. The cystoscope was removed, leaving the guidewire in place. The guidewire was used as the safety and was attached to the draping. The semi rigid ureteroscope was passed transurethrally to the level of the stone fragment in the proximal ureter. Laser lithotripsy of the stone was done using the 365 fiber with a combination of dusting and pulsating settings. There was good fragmentation of the stone. The 0 degree basket was used to remove the stone fragments, which were sent for analysis. The urete roscope was removed. The cystoscope was passed into the bladder. the guide wire was removed. The bladder was emptied.? The rigid cystoscope was removed. ? The patient tolerated the procedure well and was brought to the recovery room in stable condition. Complications: None Drains: none. stent removed as dictated above.
[2024-02-03 01:34] LABS: Stone Source LEFT URETERAL STONE
== END 2024-01-27 18:16 | disposition home or self-care (01) ==
PROVIDERS: PCP Internal Medicine; Visit Provider Urology
PROC: (CPT 52353; principal; 2024-01-27 15:10)
DX: N20.1 Calculus of ureter (principal); N13.30 Unspecified hydronephrosis; Z96.0 Presence of urogenital implants; R00.2 Palpitations; K58.9 Irritable bowel syndrome, unspecified; Z79.899 Other long term (current) drug therapy; Z88.1 Allergy status to other antibiotic agents
CPT/HCPCS: 52353; 74018; 82365; C1758; C1769; J0131; J0690; J1885; J1940; J2003; J2405; J2704; J3010; Q9967

== ENCOUNTER → 2024-01-27 13:16 | Outpatient (BNV) | payer OTHER, SELFPAY | PROVIDERS: PCP Internal Medicine; Visit Provider Urology | DX: N20.1 Calculus of ureter (principal) | CPT/HCPCS: 52353; 52356; 74420 ==

== ENCOUNTER 2024-02-04 10:24 | Outpatient (REF) | payer OTHER, SELFPAY ==
--- NOTE | ~2024-02-04 | US_ITS ---
EXAMINATION: US RETROPERITONEAL LIMITED (RENAL ONLY) CLINICAL INFORMATION: Presence of urogenital implants. COMPARISON: Renal ultrasound 11/11/2023 and 10/08/2023. Correlated to CT abdomen and pelvis 12/12/2023. TECHNIQUE: Real-time imaging of the kidneys using grayscale and color Doppler technique. FINDINGS: RIGHT KIDNEY: 9 x 4 x 4 cm (SAG x AP x TRV). Normal echotexture. Normal renal cortex. There is a 3 mm hyperechoic lesion at the corticomedullary junction. No hydronephrosis. LEFT KIDNEY: 10 x 4 x 6 cm (SAG x AP x TRV). Normal echotexture. Renal cortex is normal. There is dilatation of the left pelvicalyceal system. There is a 5 mm hyperechoic lesion in the lower pole. There is a 6 mm hyperechoic lesion in the upper pole/midportion. There are few scattered less than 2 mm hyperechoic foci at the corticomedullary junction. Fluid-filled bladder. US/US renal BI IMPRESSION: Hydronephrosis, mild, left kidney. Bilateral nephrolithiasis.. Electronically signed by: Chicho Bales MD 03/02/2024 03:42 PM EST
== END 2024-02-04 10:25 | disposition home or self-care (01) ==
LOC: HO.HMGCX 10:24
PROVIDERS: PCP Internal Medicine; Visit Provider Urology
DX: N13.30 Unspecified hydronephrosis (principal); N20.0 Calculus of kidney; N20.1 Calculus of ureter; Z96.0 Presence of urogenital implants
CPT/HCPCS: 76775

== ENCOUNTER → 2024-02-04 10:39 | Outpatient (BNV) | payer OTHER, SELFPAY | PROVIDERS: PCP Internal Medicine; Visit Provider Radiology Diagnostic Radiology | DX: N20.0 Calculus of kidney (principal); N13.30 Unspecified hydronephrosis | CPT/HCPCS: 76775 ==

== ENCOUNTER 2024-03-04 14:54 | Outpatient (AMB) | payer OTHER, SELFPAY ==
--- NOTE | 2024-03-04 14:54 | MHC.OFFVIS ---
Intake Visit Reasons: ESWL- follow up/US/KUB(US/KUB Pending) Intake Note: Patient is present for ESWL- F/U US/KUB Urology Medication:CEFUROXIME Antibiotic Allergy:NONE Blood Thinner:NONE Plumbing Designer Required: No Allergies tetracycline Allergy (Mild, Verified 03/04/24 14:56) Unknown HPI Comments Details: 03/04/14--s/p cysto, left ureteroscopy laser lithotripsy of stone- discussed recent renal ultrasound imaging. Left proximal ureteral stone no longer seen. Mild left hydronephrosis. Bilateral subcentimeter renal lesions indeterminate. Will get CT abdomen, renal protocol. 01/27/24- Renal US: RIGHT KIDNEY: 9 x 4 x 4 cm (SAG x AP x TRV). Normal echotexture. Normal renal cortex. There is a 3 mm hyperechoic lesion at the corticomedullary junction. No hydronephrosis. LEFT KIDNEY: 10 x 4 x 6 cm (SAG x AP x TRV). Normal echotexture. Renal cortex is normal. There is dilatation of the left pelvicalyceal system. There is a 5 mm hyperechoic lesion in the lower pole. There is a 6 mm hyperechoic lesion in the upper pole/midportion. Review of chart: 01/07/24--s/p left ureteral stent on 12/23/23. FU with KUB prior. Xray not officially read by Radiologist at time patient was seen in the office. I reviewed KUB image with patient Left proximal ureteral stone not visualized, calcification in the left renal fossae likely kidney stone noted on previous CT. I discussed alternative treatment options ureteroscopy laser lithotripsy versus ESWL, shockwave lithotripsy. 12/18/2023--I reviewed follow-up CT scan 12/12/2023, with Shanna, left hydronephrosis persist due to obstructive left ureteral stone. I have discussed placement of a left ureteral stent, ureteroscopy and possible laser lithotripsy. Risks discussed included but not limited to, possible need to repeat procedure if stone is not completely fragmented, Irritative voiding symptoms, bladder spasms, urgency, blood in urine. Also further stone burden in the left kidney at is nonobstructive. Right kidneys unremarkable. 11/17/23--Shanna is a 63-year-old female who is here for evaluation for kidney stones. The patient denies pain at this time. States that she noted brownish colored urine and then blood in the urine. She was seen by her PCP and was sent for ultrasound evaluation. Reviewed renal ultrasound x2 left hydronephrosis. Left ureteral stone. Left renal calculi. Bilateral ureteral jets. Discussed conservative management versus ureteroscopy laser and stent placement. The patient wants to continue to monitor at this time as she has not had severe pain. Will obtain CT stone protocol. Patient will continue tamsulosin. Percocet 6. Prescribed. PFSH Medical History Supraclavicular mass Pain Palpitations Annual physical exam Cervical adenopathy Uterine fibroid IBS (irritable bowel syndrome) Valencia syndrome Hair loss Surgical History H/O colonoscopy Family History Brother Colon polyp Social History Housing: House Are you a primary foster care therapist to a significant other at home: No Do you presently have visiting nurse or other home services: No Alcohol intake: current Alcohol intake frequency: holidays/special occasions only Patient Tobacco Use Status: Never used Tobacco e-Cigarette/Vaping Use: Never Used Second Hand Smoke Exposure: No service: No Current occupational status: employed Cognitive needs: No Hearing needs: No Vision needs: Yes Review of Systems Const All systems reviewed & are unremarkable except as noted in HPI and below Reports no additional complaints Eyes Reports no additional complaints ENT Reports no additional complaints Card Reports no additional complaints Resp Reports no additional complaints GI Reports no additional complaints Reports as per HPI Musc Reports no additional complaints Skin/Breast Reports system reviewed and no additional complaints, except as documented Neuro Reports no additional complaints Psych Reports no additional complaints Endo Reports no additional complaints Corey/Lymph Reports no additional complaints Aller/Immun Reports no additional complaints Telehealth Telehealth Telehealth [facility]: [facility] Location of provider rendering services: practice address Location of patient: address on file Patient Identification confirmed using: Name, : Yes Telehealth method: video Patient verbally consented to treatment: Yes Patient verbally consented to billing insurance company: Yes Patient informed of any privacy concerns related to visit: Yes Results Reviewed Results Reviewed: Date of Service: 02/04/24 US RETROPERITONEAL LIMITED (RENAL ONLY) CLINICAL INFORMATION: Presence of urogenital implants. COMPARISON: Renal ultrasound 11/11/2023 and 10/08/2023. Correlated to CT abdomen and pelvis 12/12/2023. TECHNIQUE: Real-time imaging of the kidneys using grayscale and color Doppler technique. FINDINGS: RIGHT KIDNEY: 9 x 4 x 4 cm (SAG x AP x TRV). Normal echotexture. Normal renal cortex. There is a 3 mm hyperechoic lesion at the corticomedullary junction. No hydronephrosis. LEFT KIDNEY: 10 x 4 x 6 cm (SAG x AP x TRV). Normal echotexture. Renal cortex is normal. There is dilatation of the left pelvicalyceal system. There is a 5 mm hyperechoic lesion in the lower pole. There is a 6 mm hyperechoic lesion in the upper pole/midportion. There are few scattered less than 2 mm hyperechoic foci at the corticomedullary junction. Fluid-filled bladder. IMPRESSION: Hydronephrosis, mild, left kidney. Bilateral nephrolithiasis.. Date of Service: 12/12/23 EXAMINATION: CT ABDOMEN AND PELVIS WITHOUT CONTRAST CLINICAL INFORMATION: Renal calculus COMPARISON: Ultrasound from November 11, 2023 TECHNIQUE: Multidetector volumetric imaging was performed from the superior aspect of the liver through the pubic symphysis. Sagittal and coronal reformatted images were obtained on the technologist's workstation. This CT examination was performed using dose optimization techniques as appropriate, variously including the following: *Automated exposure control *Adjustment of mA and/or kV according to patient size (this includes techniques or standardized protocols for targeted exams where dose is matched to indication/reason for exam; i.e. extremities or head) *Use of iterative reconstruction technique DLP: 339 mGy-cm FINDINGS: LUNG BASES: The visualized lung bases are unremarkable. LIVER, GALLBLADDER, AND BILIARY TREE: The liver is normal in size, shape, and attenuation. No focal hepatic lesion or biliary ductal dilatation is present. Gallbladder contracted without obvious stones. PANCREAS: Unremarkable. SPLEEN: Unremarkable. ADRENAL GLANDS: Unremarkable. KIDNEYS AND URETERS: The right kidney is unremarkable. There is no nonobstructing calculus in the left kidney, measured 1.1 cm in punctate calcification in the collecting system. There is fullness of collecting system of left kidney and hydroureteronephrosis due to obstruction of the proximal left ureter by 0.8 x 0.4 x 0.3 cm stone or conglomerate of stones. BLADDER: There is questionable calculus versus a 52 calcification from the uterus in the lumen of urinary bladder, measured 1.1 x 0.6 cm. GASTROINTESTINAL TRACT: There is moderate constipation. There is over distended stomach by fluid. Appendix is unremarkable. There is no diverticulitis or diverticulosis seen. Mesentery normal. ABDOMINAL WALL: No significant hernia is appreciated. LYMPH NODES: Normal. VASCULAR: Unremarkable. PELVIC VISCERA: Uterus is anteflexed OSSEOUS STRUCTURES: There are degenerative changes at the level of L4-5 and L5-S1 IMPRESSION: 1. Left-sided hydroureteronephrosis due to obstruction of the proximal left ureter by 0.8 x 0.4 x 0.3 cm stone or conglomerate of stones. 2. Left nephrolithiasis. 3. Questionable calculus in the lumen of urinary bladder, versus an exophytic calcified uterine fibroid. 4. Constipation. 5. Degenerative changes in the lower lumbar spine. Date of Service: 11/11/23 EXAMINATION: US RETROPERITONEAL LIMITED (RENAL ONLY) CLINICAL INFORMATION: Hydronephrosis. COMPARISON: Ultrasound renal from 10/08/2023 TECHNIQUE: Scale and color images of the bilateral kidneys and bladder FINDINGS: RIGHT KIDNEY: 8.8 x 3.8 x 5.8 cm (SAG x AP x TRV). The kidney is normal in size, contour, and echogenicity. Renal cortical thickness is normal. No calculi or focal parenchymal lesions. No hydronephrosis. LEFT KIDNEY: 10.3 x 3.9 x 5.7 cm (SAG x AP x TRV). The kidney is normal in size, contour, and echogenicity. Renal cortical thickness is normal. No focal parenchymal lesions. Mild to moderate left-sided hydronephrosis with a calculus along the left ureter measuring 1.1 cm. Additional calculi are noted in the left kidney the largest measuring up to 7 mm. URINARY BLADDER: Bilateral ureteral jets are identified. IMPRESSION: 1. Mild to moderate left-sided hydronephrosis with a calculus along the left ureter measuring 1.1 cm. 2. Additional calculi are noted in the left kidney the largest measuring up to 7 mm. 3. No right-sided nephrolithiasis or hydronephrosis. 4. Bilateral ureteral jets are identified. Date of Service: 10/08/23 EXAMINATION: US RETROPERITONEAL LIMITED (RENAL ONLY) CLINICAL INFORMATION: Gross hematuria. COMPARISON: None available. TECHNIQUE: Real-time imaging of the kidneys. FINDINGS: RIGHT KIDNEY: 9.3 x 3.5 x 5.3 cm (SAG x AP x TRV). The kidney is normal in size, contour, and echogenicity. Renal cortical thickness is normal. No calculi or focal parenchymal lesions. No hydronephrosis. LEFT KIDNEY: 10.3 x 5.3 x 5.6 cm (SAG x AP x TRV). The kidney is normal in size, contour, and echogenicity. Renal cortical thickness is normal. Multiple renal calculi with largest cluster measuring in conjunction 1.6 cm in the upper pole. There is a 2.3 cm calculus in the ureteropelvic junction, possibly explaining the hydronephrosis. Bilateral ureteric jets are present. IMPRESSION: Moderate left-sided hydronephrosis with an obstructive 2.3 cm calculus in the ureteropelvic junction and multiple additional nonobstructive calculi including largest cluster measuring 1.6 cm in the upper pole. Assessment & Plan Assessment & Plan (1) Renal mass of unknown nature: Code(s): N28.89 - Other specified disorders of kidney and ureter Category: Medical (2) Kidney stone on left side: Code(s): N20.0 - Calculus of kidney Category: Medical Plan CT abd renal mass protocol Orders: Orders CT abdomen wo/w IV con 3 Months N28.89 - Other specified disorders of kidney and ureter Patient Instructions: The patient had an opportunity to ask questions regarding treatment plan. The patient expressed understanding and agreement with the above treatment plan. The patient is aware they should contact our office by phone for worsening of their current condition or the appearance of new symptoms. Compliance is encouraged with any medications and followup testing that is ordered. It is a privilege to be allowed the opportunity to participate in the urologic care of your patient. If you have any questions or concerns regarding treatment for the above conditions please do not hesitate to contact me. The office telephone contact is [phone]. This note is constructed in part using voice recognition software. While every effort has been made to ensure accuracy structural steel ironworker errors may have been included. Yours sincerely, Tiago Monae MD Coding Level of Care Code Tele Est Pt Level 4 (93174) Diagnoses Renal mass of unknown nature N28.89 Kidney stone on left side N20.0
== END 2024-03-04 16:17 | disposition home or self-care (01) ==
LOC: HO.HUSH 14:54
PROVIDERS: PCP Internal Medicine; Visit Provider Urology
DX: N28.89 Other specified disorders of kidney and ureter (principal); N20.0 Calculus of kidney
CPT/HCPCS: 99024

== ENCOUNTER → 2024-03-04 14:54 | Outpatient (BNVA) | payer OTHER, SELFPAY | PROVIDERS: PCP Internal Medicine; Visit Provider Urology ==

== ENCOUNTER 2024-04-27 07:27 | Day surgery (SDC) | payer OTHER, SELFPAY ==
[2024-04-23 09:24] VITALS: BMI 19.8
--- NOTE | 2024-04-26 08:55 | HO.ANESPROP2 ---
Documented by User: Kelly Vargas NP 04/26/24 08:56 HPI - Anesthesia Eval Consult details Narrative: 63yo F for Colonoscopy PMFSH Active Problems Active Problems: All Active Problems Renal mass of unknown nature (Acute) Fracture, toe (Acute) Ureteral stent present (Acute) Kidney stone on left side (Acute) Postmenopausal (Acute) Kidney stone (Acute) Left ureteral stone (Acute) Cough (Acute) Hydronephrosis (Acute) Hematuria (Acute) Vitamin D deficiency (Acute) Dysplastic nevi (Acute) Osteochondroma (Acute) Vaginitis (Acute) Pain (Acute) Normal pelvic exam (Acute) Annual physical exam (Acute) Palpitations (Acute) Annual physical exam (Acute) Cervical adenopathy (Acute) Hair loss (Acute) Past Medical History Medical History Supraclavicular mass Pain Palpitations Annual physical exam Cervical adenopathy Uterine fibroid IBS (irritable bowel syndrome) Valencia syndrome Hair loss Family History Family History Brother Colon polyp Family history of problems with anesthesia: No Surgical History Surgical History H/O colonoscopy History of Problems with Anesthesia: No Social History Social History Housing: House Are you a primary healthcare administrative assistant to a significant other at home: No Do you presently have visiting nurse or other home services: No Alcohol intake: current Alcohol intake frequency: holidays/special occasions only Patient Tobacco Use Status: Never used Tobacco e-Cigarette/Vaping Use: Never Used Second Hand Smoke Exposure: No Use of substances other than those prescribed or required for medical reasons: No Have you been hit, kicked, punched, or otherwise hurt by someone within the past year? If so, by whom?: No Are you DNR?: No Advance Directives: No Advance Directives Information Provided: Yes Recently lost weight without trying: No service: No Current occupational status: employed Cognitive needs: No Hearing needs: No Vision needs: Yes Meds Allergies Allergy/AdvReac Type Severity Reaction Status Date / Time tetracycline Allergy Mild Unknown Verified 03/04/24 14:56 Home Medications ?Medication ?Instructions ?Recorded ?Confirmed ?Last Taken ?Type multivitamin (Daily Multi-Vitamin 1 tab PO DAILY 11/06/22 01/21/24 Unknown History tablet) Exam Height,Weight and Vital Signs: Height 5 ft 10 in Weight 62.596 kg Assessment and Plan Assessment Anesthesia Assessment: Chart Reviewed Final Anesthetic Review Family History of Problems with Anesthesia: No History of Problems with Anesthesia: No Documented by User: Leo Pate MD 04/27/24 09:05 PMFSH Past Medical History Medical History Supraclavicular mass Pain Palpitations Annual physical exam Cervical adenopathy Uterine fibroid IBS (irritable bowel syndrome) Valencia syndrome Hair loss Family History Family History Brother Colon polyp Surgical History Surgical History H/O colonoscopy Social History Social History Housing: House Are you a primary healthcare administrative assistant to a significant other at home: No Do you presently have visiting nurse or other home services: No Alcohol intake: current Alcohol intake frequency: holidays/special occasions only Patient Tobacco Use Status: Never used Tobacco e-Cigarette/Vaping Use: Never Used Second Hand Smoke Exposure: No Use of substances other than those prescribed or required for medical reasons: No Have you been hit, kicked, punched, or otherwise hurt by someone within the past year? If so, by whom?: No Are you DNR?: No Advance Directives: No Advance Directives Information Provided: Yes Recently lost weight without trying: No service: No Current occupational status: employed Cognitive needs: No Hearing needs: No Vision needs: Yes Meds Allergies Allergy/AdvReac Type Severity Reaction Status Date / Time tetracycline Allergy Mild Unknown Verified 03/04/24 14:56 Home Medications ?Medication ?Instructions ?Recorded ?Confirmed ?Last Taken ?Type multivitamin (Daily Multi-Vitamin 1 tab PO DAILY 11/06/22 01/21/24 Unknown History tablet) Exam Airway Mallampati Class: II TM Dist: >3cm Neck ROM: Full Loose/Missing/Broken Teeth: No Heart: ok Lungs: ok Assessment and Plan Assessment Anesthesia Assessment: Anesthesia Plan Discussed Final Anesthetic Review NPO: Yes ASA Class: II Final Preanesthetic Review: No Changes in Pt Med Stat, Meds/Allgs Chart Reviewed, Consent Obtained/Reviewed and Anes Risks/Benef Reviewed Patient Risk: Low Procedure Risk: Low Anesthetic Plan Anesthetic Plan: MAC: and Agree w/ Assess. and Plan Disposition: Standard PACU
[2024-04-27 08:14] VITALS: BP 110/71; PULSE 66; RESP 16; TEMP 36.9; O2SAT 100; BMI 19.8
--- NOTE | 2024-04-27 08:21 | MHC.SHP ---
Pre-Procedural Eval Section A - 24 Hr Update-Section A only Date of Service: 04/27/24 Section B - Complete if H&P > 30 days Chief Complaint: Encounter for screening for malignant neoplasm of Present Medications: see Short Stay Collaborative assessment History of Previous Operations: No relevant previous surgery Allergies: Allergies Allergy/AdvReac Type Severity Reaction Status Date / Time tetracycline Allergy Mild Unknown Verified 03/04/24 14:56 Review of Systems Review of Systems Comment: Ten point ROS negative Exam Exam Comment: Gen appear: No acute distress HEENT: no icterus Chest: No overt resp distress Abd: soft, nontender, nondistended Psych: Stable affect, answering questions appropriately Neuro: A/Ox3 noted to move all extremities spontaneously Ext: no peripheral edema Plan Diagnosis/Plan: Unchanged I have reviewed the history and physical and performed a pertinent physical examination on my patient. No changes have occurred unless specified. Time Spent With Patient Time: Total time managing care of this patient today ____ minutes.
[2024-04-27] MEDS: Lactated Ringers 1,000 ML 100 ML IVCONT (08:27)
[2024-04-27] MEDS: Sodium Phosphate,Mono-Dibasic 133 ML ENEMA PR (08:32)
--- NOTE | 2024-04-27 09:30 | P.OPN-COLO_ITS ---
Colonoscopy Operative Note Operative Note Date of Service: 04/27/24 Narrative: Procedure: Colonoscopy Indication: Screening Endoscopist: Katalina Wright MD Anesthesia Provider: Leo Pate Anesthesia type: MAC Instrument: Olympus [id number]-[id number] Consent: Indication, risks vs benefits, and alternatives were discussed with the patient who gave written informed consent to proceed. EKG, pulse, pulse oximetry and blood pressure were monitored throughout the procedure. Please see anesthesia flowsheet. Procedure: The patient was brought to the procedure room and placed in the left lateral decubitus position. IV medications were administered by the anesthesia provider in attendance. A digital rectal exam was performed which was normal. A distal attachment cap was affixed to the tip of the colonoscope which was then inserted through the anus and advanced through the colon to the cecum at 75 cm,and terminal ileum. Appendiceal orifice and ileocecal valve were identified. Mucosa was carefully examined under high definition white light as the instrument was slowly withdrawn in a retrograde panoramic fashion. Retroflexion was performed in rectum. The procedure was not difficult. There were no immediate obvious complications. The quality of the prep was BBPS: 2+2+2 = adequate Withdrawal time 9 minutes. Limitations: No limitations. Findings: Mucosa: Liquid fecal sediment that was extensively washed off. Normal to cecum and terminal ileum. Protruding lesions: * Medium internal hemorrhoids without stigmata of recent bleeding. Impression: 1. Normal colon and terminal ileum mucosa 2. Internal hemorrhoids Recommendations: - Repeat colonoscopy in 5 years due to prep.
[2024-04-27 09:35] VITALS: BP 111/71; PULSE 67; RESP 18; TEMP 36.2; O2SAT 100
[2024-04-27 09:45] VITALS: BP 110/68; PULSE 73; RESP 16; TEMP 36.1; O2SAT 99
== END 2024-04-27 10:20 | disposition home or self-care (01) ==
PROVIDERS: PCP Internal Medicine; Visit Provider Internal Medicine
PROC: 0DJD8ZZ Inspection of Lower Intestinal Tract, Via Natural or Artificial Opening Endoscopic (ICD-10-PCS; CPT 45378; principal; 2024-04-27 09:00)
DX: Z12.11 Encounter for screening for malignant neoplasm of colon (principal); K64.8 Other hemorrhoids; K58.9 Irritable bowel syndrome, unspecified; N20.0 Calculus of kidney; I73.00 Raynaud's syndrome without gangrene; D25.9 Leiomyoma of uterus, unspecified; Z88.1 Allergy status to other antibiotic agents; Z79.899 Other long term (current) drug therapy
CPT/HCPCS: 45378; J2003; J2704

== ENCOUNTER → 2024-04-27 07:27 | Outpatient (BNV) | payer OTHER, SELFPAY | PROVIDERS: PCP Internal Medicine; Visit Provider Internal Medicine | DX: Z12.11 Encounter for screening for malignant neoplasm of colon (principal); K64.8 Other hemorrhoids | CPT/HCPCS: 45378 ==

== ENCOUNTER 2024-06-04 08:22 | Outpatient (REF) | payer OTHER, SELFPAY ==
--- NOTE | ~2024-06-04 | CT_ITS ---
CLINICAL HISTORY: N28.89 - Other specified disorders of kidney and ureter CT abdomen with and without contrast Comparison: CT/SR - CT ABDOMEN PELVIS WO IV CON - 12/12/23 14:12 EDT Findings: No consolidation or effusion. The previous left-sided hydronephrosis has resolved. Tiny lower pole right renal calculus measuring up to 2 mm, noncontrast axial 47. Conglomeration of midpole left calculi stable measuring up to 10 mm. There is mild fullness of the proximal left ureter. No suspicious renal lesion. The liver, spleen, adrenal glands, pancreas and visualized bowel are unremarkable. No acute osseous finding. Moderately severe degenerative change at L4-5 and L5-S1. Impression: Persistent conglomeration of stones within the midpole of the left kidney measuring up to 10 mm. 2 mm right renal calculus. No hydronephrosis. Mild fullness of the left ureter. This document has been electronically signed by: Joselo Parsons MD on 06/04/2024 11:57:10
--- OUTSIDE RECORDS SUMMARY | 2024-06-04 08:37 | XMS_ITS | Clinical Summary ---
Author Organization [facility] Address [address] [place] [id number] Care Team Providers Care Stamp Presser Name Role Phone Pcp, No MD Primary Care Provider Unavailabl e Social History Tobacco Use Types Packs/Day Years Used Date Smoking Tobacco: Never Assessed Comments Unknown Sex and Gender Information Value Date Recorded Sex Assigned at Not on file Legal Sex Female 12:30 PM EDT Gender Identity Not on file Sexual Orientation Not on file Plan of Treatment Health Maintenance Due Date Last Done Comments Breast Cancer Screening 1960 CT Colonography 1960 Colonoscopy 1960 Colorectal Cancer Screening 1960 FIT-DNA (Cologuard) 1960 FIT 1960 FOBT 1960 Flex Sigmoidoscopy - 5y 1960 HIV Screening 1960 DTaP,Tdap,and Td Vaccines (1 - Tdap) 1978 Pap Smear 1981 Cervical Cancer Screening 1990 HPV/Cotest 1990 Zoster Vaccines (1 of 2) 2010 COVID-19 Vaccine ( - 2023-2 5 season) 2023 Influenza Vaccine (#1) 2023 HPV Vaccines Aged Out No longer eligi ble based on patient's age to complete this topic Hepatitis A Vaccines Aged Out No long er eligible based on patient's age to complete this topic MMR Vaccines Aged Out No longer eligi ble based on patient's age to complete this topic Meningococcal Vaccine Aged Out No leeanna bruce eligible based on patient's age to complete this topic Pneumococcal Vaccine: Pediat rics (0 to 5 Years) and At-Risk Patients (6 to 64 Years) Aged Out No longer eligible b ased on patient's age to complete this topic Care Teams Stamp Presser Relationship Specialty Start Date End Date Pcp, MD Tia [address] [place], [place] [id number] PCP - General Internal Medicine 11/13/18
[2024-06-05 12:17] LABS: Creatinine POC 0.8 mg/dL (0.5-1.4); GFR POC 60
== END 2024-06-04 08:23 | disposition home or self-care (01) ==
LOC: HO.CT 08:22
PROVIDERS: PCP Internal Medicine; Visit Provider Urology
DX: N28.89 Other specified disorders of kidney and ureter (principal)
CPT/HCPCS: 74170; 82565

== ENCOUNTER → 2024-06-04 08:23 | Outpatient (BNV) | payer OTHER, SELFPAY | PROVIDERS: PCP Internal Medicine; Visit Provider Radiology Vascular & Interventional Radiology | DX: N20.0 Calculus of kidney (principal) | CPT/HCPCS: 74170 ==

== ENCOUNTER 2024-06-17 09:52 | Outpatient (AMB) | payer OTHER, SELFPAY ==
--- NOTE | 2024-06-17 10:08 | MHC.OFFVIS ---
Intake Visit Reasons: Discuss CT results(set) Intake Note: Patient is present for review of CT scan Urology Meds: Antibiotic Allergies: Tetracycline Blood Thinners: none Autism Tutor Required: No Accompanied by: Self / Same As Patient Allergies tetracycline Allergy (Mild, Verified 06/17/24 10:17) Unknown Medication List - Last Reconciled 06/17/24 by Tiago Monae MD famciclovir 250 mg PO BID HPI Comments Details: 06/17/24--Shanna is a 64-year-old female presenting with nephrolithiasis. She has a history of intervention with laser lithotripsy for an obstructing ureteral stone, with successful relief of obstruction following stent removal. Despite this, residual stones were identified on subsequent imaging, including a 5 mm and 6 mm lesion on the left kidney and a small stone on the right side. The stones were noted to be calcium oxalate 95% in composition. She was informed there were no concerning lesions in the kidneys. The focus is now on managing the residual kidney stones and preventing new formations potentially related to dietary habits. A dietary summary was provided, highlighting the importance of hydration and dietary modifications to reduce risk factors. The patient has expressed interest in herbal remedies but definitive medical guidance was deferred. 30 minutes spent in review of records pertaining to this visit and including [id number] discussion with the patient and documentation of this visit. Urinary Symptoms Review - Nephrolithiasis without reported urinary symptoms - Previous obstruction resolved; current stones non-obstructing - No reported pain, frequency, or urgency associated with stones Results: 06/04/24-- CTA w/wo IV contrast- - Imaging: no suspicious renal lesions:Non-obstructive calculi in left kidney (10mm) and small non-obstructive calculi in right kidney (2 mm) 03/04/24--s/p cysto, left ureteroscopy laser lithotripsy of stone- discussed recent renal ultrasound imaging. Left proximal ureteral stone no longer seen. Mild left hydronephrosis. Bilateral subcentimeter renal lesions indeterminate. Will get CT abdomen, renal protocol. 01/27/24- Renal US: RIGHT KIDNEY: 9 x 4 x 4 cm (SAG x AP x TRV). Normal echotexture. Normal renal cortex. There is a 3 mm hyperechoic lesion at the corticomedullary junction. No hydronephrosis. LEFT KIDNEY: 10 x 4 x 6 cm (SAG x AP x TRV). Normal echotexture. Renal cortex is normal. There is dilatation of the left pelvicalyceal system. There is a 5 mm hyperechoic lesion in the lower pole. There is a 6 mm hyperechoic lesion in the upper pole/midportion. 01/07/24--s/p left ureteral stent on 12/23/23. FU with KUB prior. Xray not officially read by Radiologist at time patient was seen in the office. I reviewed KUB image with patient Left proximal ureteral stone not visualized, calcification in the left renal fossae likely kidney stone noted on previous CT. I discussed alternative treatment options ureteroscopy laser lithotripsy versus ESWL, shockwave lithotripsy. 12/18/2023--I reviewed follow-up CT scan 12/12/2023, with Shanna, left hydronephrosis persist due to obstructive left ureteral stone. I have discussed placement of a left ureteral stent, ureteroscopy and possible laser lithotripsy. Risks discussed included but not limited to, possible need to repeat procedure if stone is not completely fragmented, Irritative voiding symptoms, bladder spasms, urgency, blood in urine. Also further stone burden in the left kidney at is nonobstructive. Right kidneys unremarkable. 11/17/23--Shanna is a 63-year-old female who is here for evaluation for kidney stones. The patient denies pain at this time. States that she noted brownish colored urine and then blood in the urine. She was seen by her PCP and was sent for ultrasound evaluation. Reviewed renal ultrasound x2 left hydronephrosis. Left ureteral stone. Left renal calculi. Bilateral ureteral jets. Discussed conservative management versus ureteroscopy laser and stent placement. The patient wants to continue to monitor at this time as she has not had severe pain. Will obtain CT stone protocol. Patient will continue tamsulosin. Percocet 6. Prescribed. [facility] Medical History Supraclavicular mass Pain Palpitations Annual physical exam Cervical adenopathy Uterine fibroid IBS (irritable bowel syndrome) Valencia syndrome Hair loss Surgical History H/O colonoscopy Family History Brother Colon polyp Social History Housing: House Are you a primary wound care physician to a significant other at home: No Do you presently have visiting nurse or other home services: No Alcohol intake: current Alcohol intake frequency: holidays/special occasions only Patient Tobacco Use Status: Never used Tobacco e-Cigarette/Vaping Use: Never Used Second Hand Smoke Exposure: No service: No Current occupational status: employed Cognitive needs: No Hearing needs: No Vision needs: Yes Review of Systems Const All systems reviewed & are unremarkable except as noted in HPI and below Reports no additional complaints Eyes Reports no additional complaints ENT Reports no additional complaints Card Reports no additional complaints Resp Reports no additional complaints GI Reports no additional complaints Reports as per HPI Musc Reports no additional complaints Skin/Breast Reports system reviewed and no additional complaints, except as documented Neuro Reports no additional complaints Psych Reports no additional complaints Endo Reports no additional complaints Corey/Lymph Reports no additional complaints Aller/Immun Reports no additional complaints Results Reviewed Results Reviewed: Date of Service: 06/04/24 CLINICAL HISTORY: N28.89 - Other specified disorders of kidney and ureter CT abdomen with and without contrast Comparison: CT/SR - CT ABDOMEN PELVIS WO IV CON - 12/12/23 14:12 EDT Findings: No consolidation or effusion. The previous left-sided hydronephrosis has resolved. Tiny lower pole right renal calculus measuring up to 2 mm, noncontrast axial 47. Conglomeration of midpole left calculi stable measuring up to 10 mm. There is mild fullness of the proximal left ureter. No suspicious renal lesion. The liver, spleen, adrenal glands, pancreas and visualized bowel are unremarkable. No acute osseous finding. Moderately severe degenerative change at L4-5 and L5-S1. Impression: Persistent conglomeration of stones within the midpole of the left kidney measuring up to 10 mm. 2 mm right renal calculus. No hydronephrosis. Mild fullness of the left ureter. Date of Service: 02/04/24 US RETROPERITONEAL LIMITED (RENAL ONLY) CLINICAL INFORMATION: Presence of urogenital implants. COMPARISON: Renal ultrasound 11/11/2023 and 10/08/2023. Correlated to CT abdomen and pelvis 12/12/2023. TECHNIQUE: Real-time imaging of the kidneys using grayscale and color Doppler technique. FINDINGS: RIGHT KIDNEY: 9 x 4 x 4 cm (SAG x AP x TRV). Normal echotexture. Normal renal cortex. There is a 3 mm hyperechoic lesion at the corticomedullary junction. No hydronephrosis. LEFT KIDNEY: 10 x 4 x 6 cm (SAG x AP x TRV). Normal echotexture. Renal cortex is normal. There is dilatation of the left pelvicalyceal system. There is a 5 mm hyperechoic lesion in the lower pole. There is a 6 mm hyperechoic lesion in the upper pole/midportion. There are few scattered less than 2 mm hyperechoic foci at the corticomedullary junction. Fluid-filled bladder. IMPRESSION: Hydronephrosis, mild, left kidney. Bilateral nephrolithiasis.. Date of Service: 12/12/23 EXAMINATION: CT ABDOMEN AND PELVIS WITHOUT CONTRAST CLINICAL INFORMATION: Renal calculus COMPARISON: Ultrasound from November 11, 2023 TECHNIQUE: Multidetector volumetric imaging was performed from the superior aspect of the liver through the pubic symphysis. Sagittal and coronal reformatted images were obtained on the technologist's workstation. This CT examination was performed using dose optimization techniques as appropriate, variously including the following: *Automated exposure control *Adjustment of mA and/or kV according to patient size (this includes techniques or standardized protocols for targeted exams where dose is matched to indication/reason for exam; i.e. extremities or head) *Use of iterative reconstruction technique DLP: 339 mGy-cm FINDINGS: LUNG BASES: The visualized lung bases are unremarkable. LIVER, GALLBLADDER, AND BILIARY TREE: The liver is normal in size, shape, and attenuation. No focal hepatic lesion or biliary ductal dilatation is present. Gallbladder contracted without obvious stones. PANCREAS: Unremarkable. SPLEEN: Unremarkable. ADRENAL GLANDS: Unremarkable. KIDNEYS AND URETERS: The right kidney is unremarkable. There is no nonobstructing calculus in the left kidney, measured 1.1 cm in punctate calcification in the collecting system. There is fullness of collecting system of left kidney and hydroureteronephrosis due to obstruction of the proximal left ureter by 0.8 x 0.4 x 0.3 cm stone or conglomerate of stones. BLADDER: There is questionable calculus versus a 52 calcification from the uterus in the lumen of urinary bladder, measured 1.1 x 0.6 cm. GASTROINTESTINAL TRACT: There is moderate constipation. There is over distended stomach by fluid. Appendix is unremarkable. There is no diverticulitis or diverticulosis seen. Mesentery normal. ABDOMINAL WALL: No significant hernia is appreciated. LYMPH NODES: Normal. VASCULAR: Unremarkable. PELVIC VISCERA: Uterus is anteflexed OSSEOUS STRUCTURES: There are degenerative changes at the level of L4-5 and L5-S1 IMPRESSION: 1. Left-sided hydroureteronephrosis due to obstruction of the proximal left ureter by 0.8 x 0.4 x 0.3 cm stone or conglomerate of stones. 2. Left nephrolithiasis. 3. Questionable calculus in the lumen of urinary bladder, versus an exophytic calcified uterine fibroid. 4. Constipation. 5. Degenerative changes in the lower lumbar spine. Date of Service: 11/11/23 EXAMINATION: US RETROPERITONEAL LIMITED (RENAL ONLY) CLINICAL INFORMATION: Hydronephrosis. COMPARISON: Ultrasound renal from 10/08/2023 TECHNIQUE: Scale and color images of the bilateral kidneys and bladder FINDINGS: RIGHT KIDNEY: 8.8 x 3.8 x 5.8 cm (SAG x AP x TRV). The kidney is normal in size, contour, and echogenicity. Renal cortical thickness is normal. No calculi or focal parenchymal lesions. No hydronephrosis. LEFT KIDNEY: 10.3 x 3.9 x 5.7 cm (SAG x AP x TRV). The kidney is normal in size, contour, and echogenicity. Renal cortical thickness is normal. No focal parenchymal lesions. Mild to moderate left-sided hydronephrosis with a calculus along the left ureter measuring 1.1 cm. Additional calculi are noted in the left kidney the largest measuring up to 7 mm. URINARY BLADDER: Bilateral ureteral jets are identified. IMPRESSION: 1. Mild to moderate left-sided hydronephrosis with a calculus along the left ureter measuring 1.1 cm. 2. Additional calculi are noted in the left kidney the largest measuring up to 7 mm. 3. No right-sided nephrolithiasis or hydronephrosis. 4. Bilateral ureteral jets are identified. Date of Service: 10/08/23 EXAMINATION: US RETROPERITONEAL LIMITED (RENAL ONLY) CLINICAL INFORMATION: Gross hematuria. COMPARISON: None available. TECHNIQUE: Real-time imaging of the kidneys. FINDINGS: RIGHT KIDNEY: 9.3 x 3.5 x 5.3 cm (SAG x AP x TRV). The kidney is normal in size, contour, and echogenicity. Renal cortical thickness is normal. No calculi or focal parenchymal lesions. No hydronephrosis. LEFT KIDNEY: 10.3 x 5.3 x 5.6 cm (SAG x AP x TRV). The kidney is normal in size, contour, and echogenicity. Renal cortical thickness is normal. Multiple renal calculi with largest cluster measuring in conjunction 1.6 cm in the upper pole. There is a 2.3 cm calculus in the ureteropelvic junction, possibly explaining the hydronephrosis. Bilateral ureteric jets are present. IMPRESSION: Moderate left-sided hydronephrosis with an obstructive 2.3 cm calculus in the ureteropelvic junction and multiple additional nonobstructive calculi including largest cluster measuring 1.6 cm in the upper pole. Assessment & Plan Assessment & Plan (1) Kidney stone on left side: Code(s): N20.0 - Calculus of kidney Category: Medical (2) Bilateral kidney stones: Code(s): N20.0 - Calculus of kidney Category: Medical Plan Discussion Notes I discussed with the patient the presence of residual calculi in the left kidney and the benefits of proceeding with shockwave lithotripsy. I outlined the options and implications of the procedure, including the non-invasive nature of shockwave treatment and the absence of a stent, and its potential benefits in stone fragmentation and removal. We emphasized the possibility of stone reformation and the need for ongoing management through dietary modification?particularly increasing citrate by adding lemon, which was reviewed with her alongside urine testing. The patient agreed to a 24-hour urine test to identify contributing dietary factors. Consent for the lithotripsy procedure, including understanding risks such as potential fragments causing obstruction, was obtained. Plan We plan to proceed with Left shockwave lithotripsy. We have coordinated a 24-hour urine collection to evaluate dietary influences on her nephrolithiasis. This is to ensure accurate identification of dietary risk factors, especially calcium oxalate. The patient was counseled on the necessity of adequate hydration, reduced salt intake, and moderate animal protein consumption. Follow-ups will be conducted upon reviewing the results, and we'll assess the need for any additional dietary interventions or further procedures. Patient Instructions: Patient Instructions - Increase daily fluid intake to prevent stone formation. - Consider dietary changes: reduce salt intake and moderate animal protein consumption. - Perform the 24-hour urine collection as instructed by Cynthia for a complete evaluation. - Expect coordination of shockwave lithotripsy date and further instructions. - Contact us if experiencing new pain, urinary symptoms, or other health concerns. - Follow up after urine testing for telehealth review of results. The patient had an opportunity to ask questions regarding treatment plan. The patient expressed understanding and agreement with the above treatment plan. The patient is aware they should contact our office by phone for worsening of their current condition or the appearance of new symptoms. Compliance is encouraged with any medications and followup testing that is ordered. It is a privilege to be allowed the opportunity to participate in the urologic care of your patient. If you have any questions or concerns regarding treatment for the above conditions please do not hesitate to contact me. The office telephone contact is [phone]. This note is constructed in part using voice recognition software. While every effort has been made to ensure accuracy aws solution architect errors may have been included. Yours sincerely, Tiago Monae MD Scribe Plan - Not visible on output: Patient was informed and verbally consented to the use of an ambient scribe for clinic note documentation during this visit. Coding Level of Care Code Est Pt Level 4 (69610) Diagnoses Kidney stone on left side N20.0 Bilateral kidney stones N20.0
--- OUTSIDE RECORDS SUMMARY | 2024-06-17 11:19 | XMS_ITS | Clinical Summary ---
Author Organization [facility] Address [address] [place] [address] Care Team Providers Care Tire Room Supervisor Name Role Phone Pcp, No MD Primary [...] age to complete this topic Care Teams Tire Room Supervisor Relationship Specialty Start Date End Date Pcp, MD Tia [address] [place], [place] [phone] PCP - General Internal Medicine 11/13/18
== END 2024-06-17 10:54 | disposition home or self-care (01) ==
PROVIDERS: PCP Internal Medicine; Visit Provider Urology
DX: N20.0 Calculus of kidney (principal)
CPT/HCPCS: 99214

== ENCOUNTER 2024-06-30 08:09 | Outpatient (AMB) | payer OTHER, SELFPAY ==
[2024-06-30 08:11] VITALS: BP 114/68; PULSE 62; RESP 18; TEMP 36.6; O2SAT 99; BMI 20.1
--- NOTE | 2024-06-30 08:11 | MHC.PC.OV ---
Vital Signs 06/30/24 08:11 Height 5 ft 10 in Weight 140 lb BMI 20.1 BP 114/68 Blood Pressure Location Lt brachial Position Sitting Respiration 18 Pulse 62 Pulse Source Pulse Oximeter Temp 97.9 F Temp Source Oral Pulse Oximetry (%) 99 Oxygen Delivery Method Room Air Intake Visit Reasons: cough, fatigue, ? pneumonia Intake Note: Pt is here today for a sick visit. Pt c/o cough fatigue, fever. Pt states that fever started on 06/21/24. Pt states that fever got up to 103 Allergies tetracycline Allergy (Mild, Verified 06/30/24 08:16) Unknown Medication List - Last Reconciled 06/30/24 by Radha Walker MD famciclovir 250 mg PO BID Tobacco use date assessed: 06/30/24 Fall risk assessment: No Falls in past year Last assessed Fall Risk: 06/30/24 Dental Screening Dental Screen Date: 06/30/24 Did you have a dental visit in the last 12 months?: Yes Did you have a dental problem in the last 6 months where you did not have access to dental care?: No Was dental information given to patient?: Patient has dentist HPI cough, fatigue, ? pneumonia HPI Details Pt c/o cough and fever for 3 days last week. Pt c/o persistent cough with sputum production and generalized fatigue. Pt denies pleurisy, night sweats shortness or breath change in appetite. PFSH Medical History Supraclavicular mass Pain Palpitations Annual physical exam Cervical adenopathy Uterine fibroid IBS (irritable bowel syndrome) Valencia syndrome Hair loss Surgical History H/O colonoscopy Family History Brother Colon polyp Social History Housing: House Are you a primary acute care certified nursing assistant to a significant other at home: No Do you presently have visiting nurse or other home services: No Alcohol intake: current Alcohol intake frequency: holidays/special occasions only Patient Tobacco Use Status: Never used Tobacco e-Cigarette/Vaping Use: Never Used Second Hand Smoke Exposure: No service: No Current occupational status: employed Cognitive needs: No Hearing needs: No Vision needs: Yes Questionnaire PHQ-9 Over the last 2 weeks, how often have you been bothered by any of the following problems? 00530 - PHQ-9 Billing: Patient declined-do not bill Source: Developed by Drs. Dano Cat, Deyanira Traore, Mailk Osborn and colleagues, with an educational desmond from [employer]. Thrive Questionnaire Date Thrive assessed: 06/29/24 I am a: Patient What is your living situation today?: I have a steady place to live Within the past 12 months, did the food you bought not last and you didn't have the money to get more?: Never true Within the past 12 months, did you worry whether your food would run out before you got money to buy more?: Never true Do you have trouble paying for medicines?: No Do you have trouble getting transportation to medical appointments?: No Do you have trouble paying your heating and electricity bill?: No Do you have trouble taking care of your child, family member or friend?: No Do you have trouble with day-to-day activities such as bathing, preparing meals, shopping, managing finances, etc.?: No Are you currently unemployed and looking for a job?: No Are you interested in more education?: No Please select the resources that you would like help with: None Currently or been in a relationship where the following occur: I choose not to answer THRIVE Score: 0 AUDIT C Alcohol Use Questionnaire (AUDIT-C) 1. How often do you have a drink containing alcohol?: Never 3. How often do you have six or more drinks on one occasion?: Never Total Score: 0 JOSE-7 AMB Questionnaire JOSE-7 Date JOSE - 7 assessed: 06/30/24 Feeling nervous, anxious, or on edge: 0 = Not at all Not being able to stop or control worryin = Not at all Worrying too much about different things: 0 = Not at all Trouble relaxin = Not at all Being so restless that it is hard to sit still: 0 = Not at all Becoming easily annoyed or irritable: 0 = Not at all Feeling afraid as if something awful might happen: 0 = Not at all Total JOSE-7 score (0-4 normal; 5-9 mild; 10-14 moderate; 15-21 severe): 0 Source: Developed by Drs. Dano Cat, Deyanira Traore, Malik Osborn and colleagues, with an educational desmond from [employer]. JOSE-7 Assessment Billing JOSE-7 Assessment Tool: JOSE-7 Assessment 74970 Review of Systems Const All systems reviewed & are unremarkable except as noted in HPI and below Eyes Reports no additional complaints ENT Reports no additional complaints Resp Reports no additional complaints GI Reports no additional complaints Reports no additional complaints Physical exam (Primary Care) Vital Signs: Last Vital Signs Temp 97.9 F 06/30/24 08:11 Pulse 62 06/30/24 08:11 Resp 18 06/30/24 08:11 BP 114/68 06/30/24 08:11 Pulse Ox 99 06/30/24 08:11 Oxygen Delivery Method Room Air 06/30/24 08:11 BMI result Body Mass Index 20.1 Tobacco/Smoking Status: Tobacco use Status Tobacco use date assessed 06/30/24 06/30/24 08:19 Patient Tobacco Use Status Never used Tobacco 06/30/24 08:19 e-Cigarette/Vaping Use Never Used 06/30/24 08:19 Thrive Assessment: Date of Thrive Assessment Date Thrive assessed 06/29/24 06/30/24 08:19 Currently or been in a relationship where the following occur: I choose not to answer Const General: no acute distress HENMT Head: Yes normal to inspection Ears: TM's normal bilaterally Face and sinus: Yes sinus tenderness Throat: Yes postnasal drainage Eyes General: appearance normal, both eyes and all related structures Neck Neck: Yes no lymphadenopathy and Yes supple Resp Effort & Inspection: normal respiratory effort Auscultation: rhonchi and diminished lung sounds Cardio Rhythm: regular rhythm Heart sounds: S1 normal heart sound present and S2 normal heart sound present Coding Level of Care Code Est Pt Level 3 (34364) Diagnoses URI (upper respiratory infection) J06.9 Fatigue R53.83 Additional Codes JOSE-7 Assessment Billing - JOSE-7 Assessment Tool: JOSE-7 Assessment 43792 ([id number]) Assessment & Plan Assessment & Plan (1) URI (upper respiratory infection): Code(s): J06.9 - Acute upper respiratory infection, unspecified Category: Medical Plan: Z-Torrey as prescribed and supportive care discussed with the patient (2) Fatigue: Code(s): R53.83 - Other fatigue Category: Medical Plan: Supportive care discussed with the patient , check CBC and comprehensive panel Orders: Orders Complete Blood Count Auto Diff Today Z00.00 - Encounter for general adult medical examination without abnormal findings Comprehensive Met. Panel Today Z00.00 - Encounter for general adult medical examination without abnormal findings Medications: New azithromycin For 250 mg dose pack: take 500 mg today (day 1), then 250 mg for 4 days (days 2-5) PO 6 tabs 0RF
--- OUTSIDE RECORDS SUMMARY | 2024-06-30 08:20 | XMS_ITS | Clinical Summary ---
Author Organization [facility] Address [address] [place] [id number] Care Team Providers Care Business Economist Name Role Phone Pcp, No MD Primary [...] age to complete this topic Care Teams Business Economist Relationship Specialty Start Date End Date Pcp, MD Tia [address] [place], [place] [phone] PCP - General Internal Medicine 11/13/18
== END 2024-06-30 09:00 | disposition home or self-care (01) ==
LOC: HO.HMCC 08:10
PROVIDERS: PCP Internal Medicine; Visit Provider Internal Medicine
DX: J06.9 Acute upper respiratory infection, unspecified (principal); R53.83 Other fatigue

== ENCOUNTER → 2024-06-30 08:09 | Outpatient (BNVA) | payer OTHER, SELFPAY | PROVIDERS: PCP Internal Medicine; Visit Provider Internal Medicine | DX: J06.9 Acute upper respiratory infection, unspecified (principal); R53.83 Other fatigue | CPT/HCPCS: 96127 ==

== ENCOUNTER 2024-08-05 16:06 | Outpatient (AMB) | payer OTHER, SELFPAY ==
--- NOTE | 2024-08-04 18:43 | A.OFFVIS_ITS ---
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 Instructed on importance of fluid intake. The patient is a 64-year-old female presenting with nephrolithiasis. She has a history of kidney stones primarily consisting of calcium oxalate. Recent urinary analysis confirmed satisfactory hydration with a urine volume of 2.6 liters, aligning with the goal of 2 to 2.5 liters intake daily. Urinary calcium was measured at 188 mg and oxalate at 34 mg, both within acceptable ranges, allowing for continued dietary management without major modifications. The patient understands the importance of dietary adjustments, a vitamin B6 supplement has been discussed. A CT scan from May identified a persistent stone in the left kidney, leading to plans for shockwave lithotripsy under the care of Results - Imaging: - CT scan in May: residual stone in the left kidney 06/17/24--Shanna is a 64-year-old female presenting with nephrolithiasis. She has a history of intervention with laser lithotripsy for an obstructing ureteral stone, with successful relief of obstruction following stent removal. Despite this, residual stones were identified on subsequent imaging, including a 5 mm and 6 mm lesion on the left kidney and a small stone on the right side. The stones were noted to be calcium oxalate 95% in composition. She was informed there were no concerning lesions in the kidneys. The focus is now on managing the residual kidney stones and preventing new formations potentially related to dietary habits. A dietary summary was provided, highlighting the importance of hydration and dietary modifications to reduce risk factors. The patient has expressed interest in herbal remedies but definitive medical guidance was deferred. 30 minutes spent in review of records pertaining to this visit and including [id number] discussion with the patient and documentation of this visit. Urinary Symptoms Review - Nephrolithiasis without reported urinary symptoms - Previous obstruction resolved; current stones non-obstructing - No reported pain, frequency, or urgency associated with stones Results: 06/04/24-- CTA w/wo IV contrast- - Imaging: no suspicious renal lesions:Non-obstructive calculi in left kidney (10mm) and small non-obstructive calculi in right kidney (2 mm) 03/04/24--s/p cysto, left ureteroscopy laser lithotripsy of stone- discussed recent renal ultrasound imaging. Left proximal ureteral stone no longer seen. Mild left hydronephrosis. Bilateral subcentimeter renal lesions indeterminate. Will get CT abdomen, renal protocol. 01/27/24- Renal US: RIGHT KIDNEY: 9 x 4 x 4 cm (SAG x AP x TRV). Normal echotexture. Normal renal cortex. There is a 3 mm hyperechoic lesion at the corticomedullary junction. No hydronephrosis. LEFT KIDNEY: 10 x 4 x 6 cm (SAG x AP x TRV). Normal echotexture. Renal cortex is normal. There is dilatation of the left pelvicalyceal system. There is a 5 mm hyperechoic lesion in the lower pole. There is a 6 mm hyperechoic lesion in the upper pole/midportion. 01/07/24--s/p left ureteral stent on 12/23/23. FU with KUB prior. Xray not officially read by Radiologist at time patient was seen in the office. I reviewed KUB image with patient Left proximal ureteral stone not visualized, calcification in the left renal fossae likely kidney stone noted on previous CT. I discussed alternative treatment options ureteroscopy laser lithotripsy versus ESWL, shockwave lithotripsy. 12/18/2023--I reviewed follow-up CT scan 12/12/2023, with Shanna, left hydronep hrosis persist due to obstructive left ureteral stone. I have discussed placement of a left ureteral stent, ureteroscopy and possible laser lithotripsy. Risks discussed included but not limited to, possible need to repeat procedure if stone is not completely fragmented, Irritative voiding symptoms, bladder spasms, urgency, blood in urine. Also further stone burden in the left kidney at is nonobstructive. Right kidneys unremarkable. 11/17/23--Shanna is a 63-year-old female who is here for evaluation for kidney stones. The patient denies pain at this time. States that she noted brownish colored urine and then blood in the urine. She was seen by her PCP and was sent for ultrasound evaluation. Reviewed renal ultrasound x2 left hydronephrosis. Left ureteral stone. Left renal calculi. Bilateral ureteral jets. Discussed conservative management versus ureteroscopy laser and stent placement. The patient wants to continue to monitor at this time as she has not had severe pain. Will obtain CT stone protocol. Patient will continue tamsulosin. Percocet 6. Prescribed. PFSH Medical History Renal calculi Palpitations Cervical adenopathy Uterine fibroid IBS (irritable bowel syndrome) Valencia syndrome Supraclavicular mass Hair loss Surgical History Hx of lithotripsy Hx of cystoscopy History of esophagogastroduodenoscopy (EGD) H/O colonoscopy Family History Brother Colon polyp Social History Housing: House Are you a primary healthcare specialist to a significant other at home: No Do you presently have visiting nurse or other home services: No Alcohol intake: current Alcohol intake frequency: does not drink Patient Tobacco Use Status: Never used Tobacco e-Cigarette/Vaping Use: Never Used Second Hand Smoke Exposure: No service: No Current occupational status: employed Cognitive needs: No Hearing needs: No Vision needs: Yes Telehealth Telehealth Telehealth Platform: [facility] Location of provider rendering services: practice address Location of patient: address on file Patient Identification confirmed using: Name, : Yes Telehealth method: video Patient verbally consented to treatment: Yes Patient verbally consented to billing insurance company: Yes Patient informed of any privacy concerns related to visit: Yes Results Reviewed Results Reviewed: Date of Service: 06/04/24 CLINICAL HISTORY: N28.89 - Other specified disorders of kidney and ureter CT abdomen with and without contrast Comparison: CT/SR - CT ABDOMEN PELVIS WO IV CON - 12/12/23 14:12 EDT Findings: No consolidation or effusion. The previous left-sided hydronephrosis has resolved. Tiny lower pole right renal calculus measuring up to 2 mm, noncontrast axial 47. Conglomeration of midpole left calculi stable measuring up to 10 mm. There is mild fullness of the proximal left ureter. No suspicious renal lesion. The liver, spleen, adrenal glands, pancreas and visualized bowel are unremarkable. No acute osseous finding. Moderately severe degenerative change at L4-5 and L5-S1. Impression: Persistent conglomeration of stones within the midpole of the left kidney measuring up to 10 mm. 2 mm right renal calculus. No hydronephrosis. Mild fullness of the left ureter. Date of Service: 02/04/24 US RETROPERITONEAL LIMITED (RENAL ONLY) CLINICAL INFORMATION: Presence of urogenital implants. COMPARISON: Renal ultrasound 11/11/2023 and 10/08/2023. Correlated to CT abdomen and pelvis 12/12/2023. TECHNIQUE: Real-time imaging of the kidneys using grayscale and color Doppler technique. FINDINGS: RIGHT KIDNEY: 9 x 4 x 4 cm (SAG x AP x TRV). Normal echotexture. Normal renal cortex. There is a 3 mm hyperechoic lesion at the corticomedullary junction. No hydronephrosis. LEFT KIDNEY: 10 x 4 x 6 cm (SAG x AP x TRV). Normal echotexture. Renal cortex is normal. There is dilatation of the left pelvicalyceal system. There is a 5 mm hyperechoic lesion in the lower pole. There is a 6 mm hyperechoic lesion in the upper pole/midportion. There are few scattered less than 2 mm hyperechoic foci at the corticomedullary junction. Fluid-filled bladder. IMPRESSION: Hydronephrosis, mild, left kidney. Bilateral nephrolithiasis.. Date of Service: 12/12/23 EXAMINATION: CT ABDOMEN AND PELVIS WITHOUT CONTRAST CLINICAL INFORMATION: Renal calculus COMPARISON: Ultrasound from November 11, 2023 TECHNIQUE: Multidetector volumetric imaging was performed from the superior aspect of the liver through the pubic symphysis. Sagittal and coronal reformatted images were obtained on the technologist's workstation. This CT examination was performed using dose optimization techniques as appropriate, variously including the following: *Automated exposure control *Adjustment of mA and/or kV according to patient size (this includes techniques or standardized protocols for targeted exams where dose is matched to indication/reason for exam; i.e. extremities or head) *Use of iterative reconstruction technique DLP: 339 mGy-cm FINDINGS: LUNG BASES: The visualized lung bases are unremarkable. LIVER, GALLBLADDER, AND BILIARY TREE: The liver is normal in size, shape, and attenuation. No focal hepatic lesion or biliary ductal dilatation is present. Gallbladder contracted without obvious stones. PANCREAS: Unremarkable. SPLEEN: Unremarkable. ADRENAL GLANDS: Unremarkable. KIDNEYS AND URETERS: The right kidney is unremarkable. There is no nonobstructing calculus in the left kidney, measured 1.1 cm in punctate calcification in the collecting system. There is fullness of collecting system of left kidney and hydroureteronephrosis due to obstruction of the proximal left ureter by 0.8 x 0.4 x 0.3 cm stone or conglomerate of stones. BLADDER: There is questionable calculus versus a 52 calcification from the uterus in the lumen of urinary bladder, measured 1.1 x 0.6 cm. GASTROINTESTINAL TRACT: There is moderate constipation. There is over distended stomach by fluid. Appendix is unremarkable. There is no diverticulitis or diverticulosis seen. Mesentery normal. ABDOMINAL WALL: No significant hernia is appreciated. LYMPH NODES: Normal. VASCULAR: Unremarkable. PELVIC VISCERA: Uterus is anteflexed OSSEOUS STRUCTURES: There are degenerative changes at the level of L4-5 and L5-S1 IMPRESSION: 1. Left-sided hydroureteronephrosis due to obstruction of the proximal left ureter by 0.8 x 0.4 x 0.3 cm stone or conglomerate of stones. 2. Left nephrolithiasis. 3. Questionable calculus in the lumen of urinary bladder, versus an exophytic calcified uterine fibroid. 4. Constipation. 5. Degenerative changes in the lower lumbar spine. Date of Service: 11/11/23 EXAMINATION: US RETROPERITONEAL LIMITED (RENAL ONLY) CLINICAL INFORMATION: Hydronephrosis. COMPARISON: Ultrasound renal from 10/08/2023 TECHNIQUE: Scale and color images of the bilateral kidneys and bladder FINDINGS: RIGHT KIDNEY: 8.8 x 3.8 x 5.8 cm (SAG x AP x TRV). The kidney is normal in size, contour, and echogenicity. Renal cortical thickness is normal. No calculi or focal parenchymal lesions. No hydronephrosis. LEFT KIDNEY: 10.3 x 3.9 x 5.7 cm (SAG x AP x TRV). The kidney is normal in size, contour, and echogenicity. Renal cortical thickness is normal. No focal parenchymal lesions. Mild to moderate left-sided hydronephrosis with a calculus along the left ureter measuring 1.1 cm. Additional calculi are noted in the left kidney the largest measuring up to 7 mm. URINARY BLADDER: Bilateral ureteral jets are identified. IMPRESSION: 1. Mild to moderate left-sided hydronephrosis with a calculus along the left ureter measuring 1.1 cm. 2. Additional calculi are noted in the left kidney the largest measuring up to 7 mm. 3. No right-sided nephrolithiasis or hydronephrosis. 4. Bilateral ureteral jets are identified. Date of Service: 10/08/23 EXAMINATION: US RETROPERITONEAL LIMITED (RENAL ONLY) CLINICAL INFORMATION: Gross hematuria. COMPARISON: None available. TECHNIQUE: Real-time imaging of the kidneys. FINDINGS: RIGHT KIDNEY: 9.3 x 3.5 x 5.3 cm (SAG x AP x TRV). The kidney is normal in size, contour, and echogenicity. Renal cortical thickness is normal. No calculi or focal parenchymal lesions. No hydronephrosis. LEFT KIDNEY: 10.3 x 5.3 x 5.6 cm (SAG x AP x TRV). The kidney is normal in size, contour, and echogenicity. Renal cortical thickness is normal. Multiple renal calculi with largest cluster measuring in conjunction 1.6 cm in the upper pole. There is a 2.3 cm calculus in the ureteropelvic junction, possibly explaining the hydronephrosis. Bilateral ureteric jets are present. IMPRESSION: Moderate left-sided hydronephrosis with an obstructive 2.3 cm calculus in the ureteropelvic junction and multiple additional nonobstructive calculi including largest cluster measuring 1.6 cm in the upper pole. Assessment & Plan Assessment & Plan (1) Kidney stone on left side: Code(s): N20.0 - Calculus of kidney Category: Medical (2) Bilateral kidney stones: Code(s): N20.0 - Calculus of kidney Category: Medical Plan - Maintain intake of 2 to 2.5 liters of fluids daily. - Continue following dietary recommendations to reduce foods high in oxalate. - Take vitamin B6, 100 mg daily, as prescribed or [id number]. - Left ESWL with Dr. Brown as scheduled. - Continue adding lemon to the diet for its citrate benefits. - Monitor urinary symptoms and report any changes or concerns. Medications: New pyridoxine (vitamin B6) 100 mg PO DAILY 90 tabs 3RF Patient Instructions: The patient had an opportunity to ask questions regarding treatment plan. The patient expressed understanding and agreement with the above treatment plan. The patient is aware they should contact our office by phone for worsening of their current condition or the appearance of new symptoms. Compliance is e ncouraged with any medications and followup testing that is ordered. It is a privilege to be allowed the opportunity to participate in the urologic care of your patient. If you have any questions or concerns regarding treatment for the above conditions please do not hesitate to contact me. The office telephone contact is [phone]. This note is constructed in part using voice recognition software. While every effort has been made to ensure accuracy office clinician errors may have been included. Yours sincerely, Tiago Monae MD Scribe Plan - Not visible on output: Patient was informed and verbally consented to the use of an ambient scribe for clinic note documentation during this visit. Coding Level of Care Code Tele Est Pt Level 4 (03243) Diagnoses Kidney stone on left side N20.0 Bilateral kidney stones N20.0
--- OUTSIDE RECORDS SUMMARY | 2024-08-05 18:17 | XMS_ITS | Clinical Summary ---
Author Organization [facility] Address [address] [place] [id number] Care Team Providers Care Clipper Operator Name Role Phone Pcp, No MD Primary [...] 1981 Cervical Cancer Screening 1990 HPV/Cotest 1990 Pneumococcal Vaccine, 50+ Ye ars (1 of 1 - PCV) 2010 Zoster Vaccines (1 of 2) 2010 COVID-19 Vaccine ( - 2023-2 5 season) 2023 Influenza Vaccine (Season Ended) 2024 HPV Vaccines Aged Out No longer eligi [...] age to complete this topic Care Teams Clipper Operator Relationship Specialty Start Date End Date Pcp, MD [address] [place] [address] PCP - General Internal Medicine 11/13/18
== END 2024-08-05 16:40 | disposition home or self-care (01) ==
LOC: HO.HUSH 16:06
PROVIDERS: PCP Internal Medicine; Visit Provider Urology
DX: N20.0 Calculus of kidney (principal)
CPT/HCPCS: 99214

== ENCOUNTER → 2024-08-05 16:06 | Outpatient (BNVA) | payer OTHER, SELFPAY | PROVIDERS: PCP Internal Medicine; Visit Provider Urology ==

== ENCOUNTER → 2024-09-08 06:26 | Outpatient (BNV) | payer OTHER, SELFPAY | PROVIDERS: PCP Internal Medicine; Visit Provider Radiology Diagnostic Radiology | DX: R93.422 Abnormal radiologic findings on diagnostic imaging of left kidney (principal) | CPT/HCPCS: 74018 ==

== ENCOUNTER 2024-09-08 06:27 | Day surgery (SDC) | payer OTHER, SELFPAY ==
[2024-09-06 12:11] VITALS: BMI 20.1
--- OUTSIDE RECORDS SUMMARY | 2024-09-07 13:05 | XMS_ITS | Clinical Summary ---
Author Organization [facility] Address [address] [place] [id number] Care Team Providers Care Mortgage Closing Clerk Name Role Phone Pcp, No MD Primary [...] Vaccines (1 of 2) 2010 COVID-19 Vaccine (2023-2 5 season) 2023 Influenza Vaccine (Season Ended) [...] age to complete this topic Care Teams Mortgage Closing Clerk Relationship Specialty Start Date End Date Pcp, MD [address] [place] [address] PCP - General Internal Medicine 11/13/18
--- NOTE | 2024-09-07 14:01 | HO.ANESPROP2 ---
Documented by User: Kelly Vargas NP 09/07/24 14:04 HPI - Anesthesia Eval Consult details Narrative: 64yo F for Left Lithotripsy ESW PMFSH Active Problems Active Problems: All Active Problems Fatigue (Acute) URI (upper respiratory infection) (Acute) Bilateral kidney stones (Acute) Renal mass of unknown nature (Acute) Fracture, toe (Acute) Ureteral stent present (Acute) Kidney stone on left side (Acute) Postmenopausal (Acute) Kidney stone (Acute) Left ureteral stone (Acute) Cough (Acute) Hydronephrosis (Acute) Hematuria (Acute) Vitamin D deficiency (Acute) Dysplastic nevi (Acute) Osteochondroma (Acute) Vaginitis (Acute) Pain (Acute) Normal pelvic exam (Acute) Annual physical exam (Acute) Annual physical exam (Acute) Palpitations (Acute) Cervical adenopathy (Acute) Hair loss (Acute) Past Medical History Medical History (Updated 09/06/24 @ 12:13 by Bailey Young RN) Renal calculi Palpitations Cervical adenopathy Uterine fibroid IBS (irritable bowel syndrome) Valencia syndrome Supraclavicular mass Hair loss Family History Family History Brother Colon polyp Family history of problems with anesthesia: No Surgical History Surgical History (Updated 09/06/24 @ 12:12 by Bailey Young RN) Hx of lithotripsy Hx of cystoscopy History of esophagogastroduodenoscopy (EGD) H/O colonoscopy History of Problems with Anesthesia: No Social History Social History Housing: House Are you a primary health care sanitary technician to a significant other at home: No Do you presently have visiting nurse or other home services: No Alcohol intake: current Alcohol intake frequency: holidays/special occasions only Patient Tobacco Use Status: Never used Tobacco e-Cigarette/Vaping Use: Never Used Second Hand Smoke Exposure: No Advance Directives: Yes service: No Current occupational status: employed Cognitive needs: No Hearing needs: No Vision needs: Yes Meds Allergies Allergy/AdvReac Type Severity Reaction Status Date / Time tetracycline Allergy Mild Unknown Verified 08/05/24 16:06 Exam Height,Weight and Vital Signs: Height 5 ft 10 in Weight 63.503 kg Assessment and Plan Assessment Anesthesia Assessment: Chart Reviewed Final Anesthetic Review Family History of Problems with Anesthesia: No History of Problems with Anesthesia: No Documented by User: Abhijit Mi MD 09/08/24 07:18 PMFSH Past Medical History Medical History (Updated 09/06/24 @ 12:13 by Bailey Young RN) Renal calculi Palpitations Cervical adenopathy Uterine fibroid IBS (irritable bowel syndrome) Valencia syndrome Supraclavicular mass Hair loss Family History Family History Brother Colon polyp Surgical History Surgical History (Updated 09/06/24 @ 12:12 by Bailey Young RN) Hx of lithotripsy Hx of cystoscopy History of esophagogastroduodenoscopy (EGD) H/O colonoscopy Social History Social History Housing: House Are you a primary health care sanitary technician to a significant other at home: No Do you presently have visiting nurse or other home services: No Alcohol intake: current Alcohol intake frequency: holidays/special occasions only Patient Tobacco Use Status: Never used Tobacco e-Cigarette/Vaping Use: Never Used Second Hand Smoke Exposure: No Advance Directives: Yes service: No Current occupational status: employed Cognitive needs: No Hearing needs: No Vision needs: Yes Travel History History of recent travel: No Meds Allergies Allergy/AdvReac Type Severity Reaction Status Date / Time tetracycline Allergy Mild Unknown Verified 08/05/24 16:06 Exam Airway Mallampati Class: I TM Dist: >3cm Neck ROM: Full Heart: rrr Lungs: ctab Assessment and Plan Assessment Anesthesia Assessment: Anesthesia Plan Discussed Final Anesthetic Review NPO: Yes ASA Class: II Final Preanesthetic Review: No Changes in Pt Med Stat, Meds/Allgs Chart Reviewed, Consent Obtained/Reviewed, Anes Risks/Benef Reviewed and DNR Form (If Appl.) Patient Risk: Low Procedure Risk: Low Anesthetic Plan Anesthetic Plan: GA Disposition: Standard PACU
--- NOTE | ~2024-09-08 | XR_ITS ---
EXAMINATION: XR ABDOMEN KUB CLINICAL INDICATION: stone COMPARISON: January 27, 2024. TECHNIQUE: AP view of the abdomen. FINDINGS: Probable faint 7 mm calcification overlapping the left kidney shadow. Left-sided ureteral stent is not present on the current x-ray. Abundant stool throughout the large intestine. No intestinal dilatation. No air-fluid levels. No gas beneath the diaphragm. Spondylosis L4-5 and L5-S1 levels. XR/XR KUB IMPRESSION: Status post removal left-sided ureteral stent. Probable 7 mm calculus, left kidney. Electronically signed by: Chicho Bales MD 09/08/2024 07:43 AM EDT
[2024-09-08 06:44] VITALS: BP 136/62; PULSE 60; RESP 20; TEMP 36.9; O2SAT 98; BMI 20.3
[2024-09-08] MEDS: Lactated Ringers 1,000 ML 999 ML IV (07:02)
--- NOTE | 2024-09-08 07:30 | P.HPSUR_ITS ---
Pre-Procedural Eval Section A - 24 Hr Update-Section A only Date of Service: 09/08/24 The patient is an INPATIENT: No Changes since office visit: No Cold of Flu in the past 2 weeks, No New Medical Problems, No Changes in Medication and No Patient answered all questions The patient has been examined within 24 hours of the surgical procedure. The History & Physical has been completed within 30 days and I have reviewed it.: No Section B - Complete if H&P > 30 days Chief Complaint: Calculus of kidney Details of Present Illness: left side Relevant Family History (Specify if Yes): No Relevant Social History: None Present Medications: see Short Stay Collaborative assessment Medical History: No relevant PMH History of Previous Operations: Relevant previous surgery/procedure and date(s) Allergies: Allergies Allergy/AdvReac Type Severity Reaction Status Date / Time tetracycline Allergy Mild Unknown Verified 08/05/24 16:06 Review of Systems Sugical H&P ROS: Negative: Constitution, Cardiovascular, Respiratory, Neurological, Psychiatric, Hem-Onc, Allergic/Immunologic, Gastrointestinal, Genitourinary, Musculoskeletal, Integumentary, Endocrine and Eyes/Ears/Nose /Throat Exam Surgical H&P Exam: Normal: HEENT, Normal: Heart, Normal: Lungs, Normal: Extremities, Normal: Abdomen, Normal: Skin and Normal: Neurological Plan Diagnosis/Plan: Unchanged (left eswl) I have reviewed the history and physical and performed a pertinent physical examination on my patient. No changes have occurred unless specified. Time Spent With Patient Time: Total time managing care of this patient today ____ minutes.
--- NOTE | 2024-09-08 07:33 | W.PM.OPN ---
Operative Note Operative Note Date of Service: 09/08/24 Narrative: PreOperative Diagnosis: left Renal stones Post Operative Diagnosis: left Renal stones Procedure: left ESWL Surgeon: Dr Joshua Brown Anesthesia: mac/sedation Indications for procedure: The patient understands ESWL may be a staged procedure and subsequent intervention may be required based on imaging after ESWL. Quoted stone clearance rates for a solitary procedure are in the 70-80% range based primarily on stone location. They also understand there is a risk of bleeding to the kidney, infection, damage to adjacent organs, and stone migration following the procedure. - Imaging 10mm left MP on CT - clearly visible on ultrasound Procedure optimization has been performed with IV acetaminophen given in the holding area and 1 L of lactated Ringer's to be given in order to optimize the fluid-stone interface. 20 mg of IV Lasix will be given in the last 5 minutes of the procedure to optimize stone clearance. Procedure: After informed consent was verified the patient was brought to the operating room and placed in a supine position. Anesthesia was performed per protocol. Safety pause time-out was performed. Imaging was displayed in the room and laterality confirmed. ESWL was performed. The 1st 500 shocks were performed at 60 hertz. These were performed with increasing power. Once maximum power was reached the rate was increased to 180 hertz. A total of 2500 shocks were given. Targeted imaging with ultrasound/fluoroscopy showed stone smudging suggestive of disintegration. The patient tolerated the procedure well and was transferred to the recovery area upon completion. Post procedure imaging will be organized. There was no evidence for flank discoloration.
[2024-09-08 08:19] VITALS: BP 131/68; PULSE 48; RESP 12; TEMP 36.4; O2SAT 100
[2024-09-08 08:24] VITALS: BP 121/56; PULSE 52; RESP 11; O2SAT 100
[2024-09-08 08:29] VITALS: BP 120/71; PULSE 62; RESP 14; O2SAT 100
[2024-09-08 08:34] VITALS: BP 124/70; PULSE 51; RESP 10; O2SAT 100
[2024-09-08 08:51] VITALS: BP 131/70; PULSE 51; RESP 16; TEMP 36.2; O2SAT 100
== END 2024-09-08 09:31 | disposition home or self-care (01) ==
PROVIDERS: PCP Internal Medicine; Visit Provider Urology
PROC: (CPT 50590; principal; 2024-09-08 07:30)
DX: N20.0 Calculus of kidney (principal); Z87.442 Personal history of urinary calculi; R00.2 Palpitations; L65.9 Nonscarring hair loss, unspecified; Z79.899 Other long term (current) drug therapy; Z88.1 Allergy status to other antibiotic agents
CPT/HCPCS: 50590; 74018; J0131; J1100; J2003; J2250; J2405; J2704; J3010

== ENCOUNTER → 2024-09-08 06:27 | Outpatient (BNV) | payer OTHER, SELFPAY | PROVIDERS: PCP Internal Medicine; Visit Provider Urology | DX: N20.0 Calculus of kidney (principal) | CPT/HCPCS: 50590 ==

== ENCOUNTER 2024-10-12 15:18 | Outpatient (REF) | payer OTHER, SELFPAY ==
--- NOTE | ~2024-10-12 | US_ITS ---
CLINICAL HISTORY: N20.0 - Calculus of kidney US Renal Comparison: None provided Findings: Right kidney normal size and echotexture, 9.0 cm length. Left kidney normal size and echotexture, 10.0 cm length. 10 mm calcification is seen in the left renal pelvis with posterior shadowing and twinkle artifact. An additional 5 mm echogenicity is seen in the left kidney with twinkle artifact. No hydronephrosis of either kidney. IMPRESSION: 1. 10 mm and 5 mm nonobstructive left renal stones. 2. No definite right renal stone is identified. This document has been electronically signed by: Dolores Lantigua on 10/13/2024 09:22:05
--- OUTSIDE RECORDS SUMMARY | 2024-10-12 18:31 | XMS_ITS | Clinical Summary ---
Author Organization [facility] Address [address] [place] [id number] Care Team Providers Care Clam Digger Name Role Phone Pcp, No MD Primary [...] age to complete this topic Care Teams Clam Digger Relationship Specialty Start Date End Date Pcp, MD [address] [place] [address] PCP - General Internal Medicine 11/13/18
== END 2024-10-12 15:19 | disposition home or self-care (01) ==
LOC: HO.US 15:18
PROVIDERS: PCP Internal Medicine; Visit Provider Urology
DX: N20.0 Calculus of kidney (principal)
CPT/HCPCS: 76775

== ENCOUNTER → 2024-10-12 15:19 | Outpatient (BNV) | payer OTHER, SELFPAY | PROVIDERS: PCP Internal Medicine; Visit Provider Radiology Vascular & Interventional Radiology | DX: N20.0 Calculus of kidney (principal) | CPT/HCPCS: 76775 ==

== ENCOUNTER 2024-10-18 10:28 | Outpatient (AMB) | payer OTHER, SELFPAY ==
--- NOTE | 2024-10-18 10:28 | A.OFFVIS_ITS ---
Intake Visit Reasons: ESWL- follow up/KUB Intake Note: Patient is present for ESWL/KUB Urology Medication:VITAMIN B6 Antibiotic Allergy:TETRACYCLINE Blood Thinner:NONE Wire Rope Sales Representative Required: No Allergies tetracycline Allergy (Mild, Verified 10/18/24 10:29) Unknown HPI Comments Details: 10/18/24 History of Present Illness - The patient is a 64-year-old female presenting with concerns related to nephrolithiasis management and follow-up. - The patient underwent a procedure by Dr. Brown and noticed very few stone fragments, mostly sand-like. - Ultrasound indicated a 10 mm and 5 mm stone, but the exact size is uncertain without a CAT scan. - The patient has had two CAT scans, with the last one in May, and is concerned about radiation exposure. - The patient was prescribed tamsulosin to aid in stone passage, which she is no longer taking. - A 24-hour urine collection showed borderline high urine calcium, potentially related to osteopenia. - The urine calcium level was 188, within normal limits, and sodium intake was normal. Results - Ultrasound: Indicated a 10 mm and 5 mm stone. - 24-hour urine collection: Calcium level was 188, within normal limits. Plan - Monitor nephrolithiasis with a follow-up CAT scan in May unless symptoms such as hematuria or severe flank pain develop. - No further imaging is recommended until May to limit radiation exposure. - Encourage maintaining a low sodium diet to manage urine calcium levels. 08/05/24--Discussed 24 hour urine results collected:07/12/24 Total volume 2.60 L, Calcium 188 mg; Oxalate 34 mg, Citrate 916 mg, Sodium 116. Instructed on importance of fluid intake. The patient is a 64-year-old female presenting with nephrolithiasis. She has a history of kidney stones primarily consisting of calcium oxalate. Recent urinary analysis confirmed satisfactory hydration with a urine volume of 2.6 liters, aligning with the goal of 2 to 2.5 liters intake daily. Urinary calcium was measured at 188 mg and oxalate at 34 mg, both within acceptable ranges, allowing for continued dietary management without major modifications. The patient understands the importance of dietary adjustments, a vitamin B6 supplement has been discussed. A CT scan from May identified a persistent stone in the left kidney, leading to plans for shockwave lithotripsy under the care of Results - Imaging: - CT scan in May: residual stone in the left kidney 06/17/24--Shanna is a 64-year-old female presenting with nephrolithiasis. She has a history of intervention with laser lithotripsy for an obstructing ureteral stone, with successful relief of obstruction following stent removal. Despite this, residual stones were identified on subsequent imaging, including a 5 mm and 6 mm lesion on the left kidney and a small stone on the right side. The stones were noted to be calcium oxalate 95% in composition. She was informed there were no concerning lesions in the kidneys. The focus is now on managing the residual kidney stones and preventing new formations potentially related to dietary habits. A dietary summary was provided, highlighting the importance of hydration and dietary modifications to reduce risk factors. The patient has expressed interest in herbal remedies but definitive medical guidance was deferred. 30 minutes spent in review of records pertaining to this visit and including [id number] discussion with the patient and documentation of this visit. Urinary Symptoms Review - Nephrolithiasis without reported urinary symptoms - Previous obstruction resolved; current stones non-obstructing - No reported pain, frequency, or urgency associated with stones Results: 06/04/24-- CTA w/wo IV contrast- - Imaging: no suspicious renal lesions:Non-obstructive calculi in left kidney (10mm) and small non-obstructive calculi in right kidney (2 mm) 03/04/24--s/p cysto, left ureteroscopy laser lithotripsy of stone- discussed recent renal ultrasound imaging. Left proximal ureteral stone no longer seen. Mild left hydronephrosis. Bilateral subcentimeter renal lesions indeterminate. Will get CT abdomen, renal protocol. 01/27/24- Renal US: RIGHT KIDNEY: 9 x 4 x 4 cm (SAG x AP x TRV). Normal echotexture. Normal renal cortex. There is a 3 mm hyperechoic lesion at the corticomedullary junction. No hydronephrosis. LEFT KIDNEY: 10 x 4 x 6 cm (SAG x AP x TRV). Normal echotexture. Renal cortex is normal. There is dilatation of the left pelvicalyceal system. There is a 5 mm hyperechoic lesion in the lower pole. There is a 6 mm hyperechoic lesion in the upper pole/midportion. 01/07/24--s/p left ureteral stent on 12/23/23. FU with KUB prior. Xray not officially read by Radiologist at time patient was seen in the office. I reviewed KUB image with patient Left proximal ureteral stone not visualized, calcification in the left renal fossae likely kidney stone noted on previous CT. I discussed alternative treatment options ureteroscopy laser lithotripsy versus ESWL, shockwave lithotripsy. 12/18/2023--I reviewed follow-up CT scan 12/12/2023, with Shanna, left hydronephrosis persist due to obstructive left ureteral stone. I have discussed placement of a left ureteral stent, ureteroscopy and possible laser lithotripsy. Risks discussed included but not limited to, possible need to repeat procedure if stone is not completely fragmented, Irritative voiding symptoms, bladder spasms, urgency, blood in urine. Also further stone burden in the left kidney at is nonobstructive. Right kidneys unremarkable. 11/17/23--Shanna is a 63-year-old female who is here for evaluation for kidney ston es. The patient denies pain at this time. States that she noted brownish colored urine and then blood in the urine. She was seen by her PCP and was sent for ultrasound evaluation. Reviewed renal ultrasound x2 left hydronephrosis. Left ureteral stone. Left renal calculi. Bilateral ureteral jets. Discussed conservative management versus ureteroscopy laser and stent placement. The patient wants to continue to monitor at this time as she has not had severe pain. Will obtain CT stone protocol. Patient will continue tamsulosin. Percocet 6. Prescribed. [facility] Renal calculi Palpitations Cervical adenopathy Uterine fibroid IBS (irritable bowel syndrome) Valencia syndrome Supraclavicular mass Hair loss Surgical History Hx of lithotripsy Hx of cystoscopy History of esophagogastroduodenoscopy (EGD) H/O colonoscopy Family History Brother Colon polyp Social History Housing: House Are you a primary managed care liaison to a significant other at home: No Do you presently have visiting nurse or other home services: No Alcohol intake: current Alcohol intake frequency: does not drink Patient Tobacco Use Status: Never used Tobacco e-Cigarette/Vaping Use: Never Used Second Hand Smoke Exposure: No service: No Current occupational status: employed Cognitive needs: No Hearing needs: No Vision needs: Yes Review of Systems Const All systems reviewed & are unremarkable except as noted in HPI and below Reports no additional complaints Eyes Reports no additional complaints ENT Reports no additional complaints Card Reports no additional complaints Resp Reports no additional complaints GI Reports no additional complaints Reports as per HPI Musc Reports no additional complaints Skin/Breast Reports system reviewed and no additional complaints, except as documented Neuro Reports no additional complaints Psych Reports no additional complaints Endo Reports no additional complaints Corey/Lymph Reports no additional complaints Aller/Immun Reports no additional complaints Telehealth Telehealth Telehealth Platform: [employer] Location of provider rendering services: practice address Location of patient: address on file Patient Identification confirmed using: Name, : Yes Telehealth method: video Patient verbally consented to treatment: Yes Patient verbally consented to billing insurance company: Yes Patient informed of any privacy concerns related to visit: Yes Results Reviewed Results Reviewed: Date of Service: 10/12/24 CLINICAL HISTORY: N20.0 - Calculus of kidney US Renal Comparison: None provided Findings: Right kidney normal size and echotexture, 9.0 cm length. Left kidney normal size and echotexture, 10.0 cm length. 10 mm calcification is seen in the left renal pelvis with posterior shadowing and twinkle artifact. An additional 5 mm echogenicity is seen in the left kidney with twinkle artifact. No hydronephrosis of either kidney. IMPRESSION: 1. 10 mm and 5 mm nonobstructive left renal stones. 2. No definite right renal stone is identified. Date of Service: 09/08/24 XR ABDOMEN KUB CLINICAL INDICATION: stone COMPARISON: January 27, 2024. TECHNIQUE: AP view of the abdomen. FINDINGS: Probable faint 7 mm calcification overlapping the left kidney shadow. Left-sided ureteral stent is not present on the current x-ray. Abundant stool throughout the large intestine. No intestinal dilatation. No air-fluid levels. No gas beneath the diaphragm. Spondylosis L4-5 and L5-S1 levels. IMPRESSION: Status post removal left-sided ureteral stent. Probable 7 mm calculus, left kidney. Date of Service: 06/04/24 CLINICAL HISTORY: N28.89 - Other specified disorders of kidney and ureter CT abdomen with and without contrast Comparison: CT/SR - CT ABDOMEN PELVIS WO IV CON - 12/12/23 14:12 EDT Findings: No consolidation or effusion. The previous left-sided hydronephrosis has resolved. Tiny lower pole right renal calculus measuring up to 2 mm, noncontrast axial 47. Conglomeration of midpole left calculi stable measuring up to 10 mm. There is mild fullness of the proximal left ureter. No suspicious renal lesion. The liver, spleen, adrenal glands, pancreas and visualized bowel are unremarkable. No acute osseous finding. Moderately severe degenerative change at L4-5 and L5-S1. Impression: Persistent conglomeration of stones within the midpole of the left kidney measuring up to 10 mm. 2 mm right renal calculus. No hydronephrosis. Mild fullness of the left ureter. Date of Service: 02/04/24 US RETROPERITONEAL LIMITED (RENAL ONLY) CLINICAL INFORMATION: Presence of urogenital implants. COMPARISON: Renal ultrasound 11/11/2023 and 10/08/2023. Correlated to CT abdomen and pelvis 12/12/2023. TECHNIQUE: Real-time imaging of the kidneys using grayscale and color Doppler technique. FINDINGS: RIGHT KIDNEY: 9 x 4 x 4 cm (SAG x AP x TRV). Normal echotexture. Normal renal cortex. There is a 3 mm hyperechoic lesion at the corticomedullary junction. No hydronephrosis. LEFT KIDNEY: 10 x 4 x 6 cm (SAG x AP x TRV). Normal echotexture. Renal cortex is normal. There is dilatation of the left pelvicalyceal system. There is a 5 mm hyperechoic lesion in the lower pole. There is a 6 mm hyperechoic lesion in the upper pole/midportion. There are few scattered less than 2 mm hyperechoic foci at the corticomedullary junction. Fluid-filled bladder. IMPRESSION: Hydronephrosis, mild, left kidney. Bilateral nephrolithiasis.. Date of Service: 12/12/23 EXAMINATION: CT ABDOMEN AND PELVIS WITHOUT CONTRAST CLINICAL INFORMATION: Renal calculus COMPARISON: Ultrasound from November 11, 2023 TECHNIQUE: Multidetector volumetric imaging was performed from the superior aspect of the liver through the pubic symphysis. Sagittal and coronal reformatted images were obtained on the technologist's workstation. This CT examination was performed using dose optimization techniques as appropriate, variously including the following: *Automated exposure control *Adjustment of mA and/or kV according to patient size (this includes techniques or standardized protocols for targeted exams where dose is matched to indication/reason for exam; i.e. extremities or head) *Use of iterative reconstruction technique DLP: 339 mGy-cm FINDINGS: LUNG BASES: The visualized lung bases are unremarkable. LIVER, GALLBLADDER, AND BILIARY TREE: The liver is normal in size, shape, and attenuation. No focal hepatic lesion or biliary ductal dilatation is present. Gallbladder contracted without obvious stones. PANCREAS: Unremarkable. SPLEEN: Unremarkable. ADRENAL GLANDS: Unremarkable. KIDNEYS AND URETERS: The right kidney is unremarkable. There is no nonobstructing calculus in the left kidney, measured 1.1 cm in punctate calcification in the collecting system. There is fullness of collecting system of left kidney and hydroureteronephrosis due to obstruction of the proximal left ureter by 0.8 x 0.4 x 0.3 cm stone or conglomerate of stones. BLADDER: There is questionable calculus versus a 52 calcification from the uterus in the lumen of urinary bladder, measured 1.1 x 0.6 cm. GASTROINTESTINAL TRACT: There is moderate constipation. There is over distended stomach by fluid. Appendix is unremarkable. There is no diverticulitis or diverticulosis seen. Mesentery normal. ABDOMINAL WALL: No significant hernia is appreciated. LYMPH NODES: Normal. VASCULAR: Unremarkable. PELVIC VISCERA: Uterus is anteflexed OSSEOUS STRUCTURES: There are degenerative changes at the level of L4-5 and L5-S1 IMPRESSION: 1. Left-sided hydroureteronephrosis due to obstruction of the proximal left ureter by 0.8 x 0.4 x 0.3 cm stone or conglomerate of stones. 2. Left nephrolithiasis. 3. Questionable calculus in the lumen of urinary bladder, versus an exophytic calcified uterine fibroid. 4. Constipation. 5. Degenerative changes in the lower lumbar spine. Date of Service: 11/11/23 EXAMINATION: US RETROPERITONEAL LIMITED (RENAL ONLY) CLINICAL INFORMATION: Hydronephrosis. COMPARISON: Ultrasound renal from 10/08/2023 TECHNIQUE: Scale and color images of the bilateral kidneys and bladder FINDINGS: RIGHT KIDNEY: 8.8 x 3.8 x 5.8 cm (SAG x AP x TRV). The kidney is normal in size, contour, and echogenicity. Renal cortical thickness is normal. No calculi or focal parenchymal lesions. No hydronephrosis. LEFT KIDNEY: 10.3 x 3.9 x 5.7 cm (SAG x AP x TRV). The kidney is normal in size, contour, and echogenicity. Renal cortical thickness is normal. No focal parenchymal lesions. Mild to moderate left-sided hydronephrosis with a calculus along the left ureter measuring 1.1 cm. Additional calculi are noted in the left kidney the largest measuring up to 7 mm. URINARY BLADDER: Bilateral ureteral jets are identified. IMPRESSION: 1. Mild to moderate left-sided hydronephrosis with a calculus along the left ureter measuring 1.1 cm. 2. Additional calculi are noted in the left kidney the largest measuring up to 7 mm. 3. No right-sided nephrolithiasis or hydronephrosis. 4. Bilateral ureteral jets are identified. Date of Service: 10/08/23 EXAMINATION: US RETROPERITONEAL LIMITED (RENAL ONLY) CLINICAL INFORMATION: Gross hematuria. COMPARISON: None available. TECHNIQUE: Real-time imaging of the kidneys. FINDINGS: RIGHT KIDNEY: 9.3 x 3.5 x 5.3 cm (SAG x AP x TRV). The kidney is normal in size, contour, and echogenicity. Renal cortical thickness is normal. No calculi or focal parenchymal lesions. No hydronephrosis. LEFT KIDNEY: 10.3 x 5.3 x 5.6 cm (SAG x AP x TRV). The kidney is normal in size, contour, and echogenicity. Renal cortical thickness is normal. Multiple renal calculi with largest cluster measuring in conjunction 1.6 cm in the upper pole. There is a 2.3 cm calculus in the ureteropelvic junction, possibly explaining the hydronephrosis. Bilateral ureteric jets are present. IMPRESSION: Moderate left-sided hydronephrosis with an obstructive 2.3 cm calculus in the ureteropelvic junction and multiple additional nonobstructive calculi including largest cluster measuring 1.6 cm in the upper pole. Assessment & Plan Assessment & Plan (1) Kidney stone on left side: Code(s): N20.0 - Calculus of kidney Category: Medical (2) Bilateral kidney stones: Code(s): N20.0 - Calculus of kidney Category: Medical Plan Plan - Monitor nephrolithiasis with a follow-up CAT scan in May unless symptoms such as hematuria or severe flank pain develop. - No further imaging is recommended until May to limit radiation exposure. - Encourage maintaining a low sodium diet to manage urine calcium levels. Orders: Orders CT kidney stone 9 Months N20.0 - Calculus of kidney Patient Instructions: The patient had an opportunity to ask questions regarding treatment plan. The patient expressed understanding and agreement with the above treatment plan. The patient is aware they should contact our office by phone for worsening of their current condition or the appearance of new symptoms. Compliance is encouraged with any medications and followup testing that is ordered. It is a privilege to be allowed the opportunity to participate in the urologic care of your patient. If you have any questions or concerns regarding treatment for the above conditions please do not hesitate to contact me. The office telephone contact is [phone]. This note is constructed in part using voice recognition software. While every effort has been made to ensure accuracy principal developer errors may have been included. Yours sincerely, Tiago Monae MD Scribe Plan - Not visible on output: Patient was informed and verbally consented to the use of an ambient scribe for clinic note documentation during this visit. Coding Level of Care Code Tele Est Pt Level 3 (09137) Complex EM visit Add On G2211 Diagnoses Kidney stone on left side N20.0 Bilateral kidney stones N20.0
--- OUTSIDE RECORDS SUMMARY | 2024-10-18 11:10 | XMS_ITS | Clinical Summary ---
Author Organization [facility] Address [address] [place] [id number] Care Team Providers Care Fish Hatchery Man Name Role Phone Pcp, No MD Primary [...] age to complete this topic Care Teams Fish Hatchery Man Relationship Specialty Start Date End Date Pcp, MD [address] [place] [address] PCP - General Internal Medicine 11/13/18
== END 2024-10-18 13:32 | disposition home or self-care (01) ==
LOC: HO.HUSH 10:28
PROVIDERS: PCP Internal Medicine; Visit Provider Urology
DX: N20.0 Calculus of kidney (principal)
CPT/HCPCS: 99024